=== PATIENT | female | born 1965 | race Caucasian/White ===

== ENCOUNTER → 2016-02-10 | Outpatient (CLI) | payer OTHER ==
[~2016-02-10] MED LIST: /ESOM40CA OR; /TIOT18INH INH; /WARF2TA OR; ALTA10CA OR; ARTISOL10 OU; ASPI81TA83 OR; ASPI81TA85 PO; BACL10TA2 OR; BACL10TA2 PO; CLAR1TAB2 PO; CLON1TAB OR; COMBVENT INFIL; CYCL10TA PO; DEPO-PROVERA IM; DEPRO PROVERA IM; DULO30CA PO; EPIP0.3I IM; FLEXERIL PO; FLON0.05; FLUCTICASONE; FOLI1TAB OR; FURO20TA2 OR; GABA600T3 OR; HYOMAX PO; LOPR50TA OR; LYRI75CA PO; METF-414 PO; METO25TA74 PO; MIRT15TA3 PO; MUCINEX PO; NITR0.4S SL; NYSTATIN TOP; OMEP20TA PO; OXYC10TA12 PO; OXYC5CAP28 PO; PULMICORT NEB; REMIPRIL PO; SIMV40TA2 OR; SOMA350T PO; TIZA4TAB OR; TRAM50TA2 OR; TRAZ50TA OR; TRAZADONE PO; TRIC145T19 OR; VENTAER IN; VITAMIN D50000 UNT OR; ZYRT10TA2 PO; [UNRECOGNIZED DRUG - CODE] SL
--- NOTE | 2016-02-20 02:26 | ECWPNPC ---
PATIENT NAME: MIGUEL PICKETT : 1965 GENDER: FEMALE VISIT DATE: 02/10/2016 DISCHARGE DATE: 02/10/16 1449 VISIT LOCKED DATE TIME: PHYSICIAN: DIANA FLOREZ PHYSICIAN PAGER NO: [phone] RESOURCE: DIANA FLOREZ REASON FOR APPOINTMENT 1. CHRONIC PAIN HISTORY OF PRESENT ILLNESS HISTORY OF PRESENT ILLNESS: PAIN THE PATIENT DESCRIBES THE PAIN... FALL RISK SCREENING: SCREENING :NO FALLS IN THE PAST YEAR TODAY'S VISIT: NOTES: RATES PAIN TODAY 10++. NOTES PAIN AT SHOULDERS WITH PAIN ALSO IN LOW BACK AND DOWN BOTH LEGS. WORSTA AREA OF PAIN IS RIGHT SIDE OF NECK. IS UNABLE TO TURN HEAD. IT GIVES MIGRAINES. RECENTLY HAD EMG/NCS ON LEGS AND WILL BE MAKING FOLLOWUP APPOINTMENT WITH DR STU RAMIRES.. CURRENT MEDICATIONS TAKING LORATADINE ALLERGY RELIEF 10 MG TABLET DISPERSIBLE 1 TABLET ON THE TONGUE AND ALLOW TO DISSOLVE ORALLY ONCE A DAY TAKING CETIRIZINE HCL 10 MG TABLET 1 TABLET NEEDED ORALLY ONCE A DAY TAKING METFORMIN 500 MG 1 TAB ORAL DAILY TAKING FOLIC ACID 1 MG TABLET 1 TABLET ORALLY ONCE A DAY TAKING RAMIPRIL 10 10 MG TABLET 1 CAP(S) P.O. DAILY TAKING COUMADIN 2 MG TABLET 1 TABLET ORALLY 6MG DAILY EXCEPT FOR MONDAY DOSE IS 4 MG TAKING RANITIDINE 75 75 MG TABLET ORALLY BID TAKING VITAMIN D 1000 UNIT CAPSULE 1 CAPSULE ORALLY WEEKLY TAKING PROAIR HFA 108 (90 BASE) MCG/ACT AEROSOL SOLUTION 2 PUFFS NEEDED INHALATION BID TAKING SIMVASTATIN 40 40MG TABLET ORAL DAILY TAKING MUCINEX 600 MG TABLET EXTENDED RELEASE 1 TABLET NEEDED ORALLY EVERY 12 HRS TAKING TRAZODONE 100 100MG TABLET ORAL DAILY AT BEDTIME TAKING METOPROLOL SUCCINATE ER 25 MG TABLET EXTENDED RELEASE 24 HOUR 1 TABLET ORALLY ONCE A DAY TAKING NITROSTAT 0.4 MG TABLET SUBLINGUAL SUBLINGUAL DIRECTED TAKING DEPO-SUBQ PROVERA 104 104 MG/0.65ML SUSPENSION 0.65 ML SUBCUTANEOUS EVERY 3 MOS TAKING VENTOLIN HFA 108 (90 BASE) MCG/ACT AEROSOL SOLUTION 2 PUFFS NEEDED INHALATION EVERY 4 HRS TAKING SPIRIVA HANDIHALER 18 MCG CAPSULE 1 CAPSULE INHALATION ONCE A DAY TAKING CLONAZEPAM 1 MG TABLET 1 TABLET ORALLY TWICE A DAY TAKING MIRTAZAPINE 15 MG TABLET 1 TABLET BEFORE BEDTIME IN THE EVENING ORALLY ONCE A DAY TAKING OMEPRAZOLE 20MG 20MG TABLET 2 TAB(S) ORAL DAILY TAKING EPIPEN 0.3 MG/0.3ML (1:1000) DEVICE INTRAMUSCULAR DAILY NEEDED TAKING HYOSCYAMINE 0.15 MG TABLET 1 TABLET ORALLY THREE TIMES A DAY TAKING FLUTICASONE PROPIONATE HFA 44 MCG/ACT AEROSOL 2 PUFFS INHALATION TWICE A DAY TAKING AZELASTINE-FLUTICASONE 137-50 MCG/ACT SUSPENSION 1 PUFF IN EACH NOSTRIL NASALLY TWICE A DAY TAKING ASPIRIN 81 MG TABLET CHEWABLE 1 TABLET ORALLY ONCE A DAY TAKING SOMA 350 MG TABLET 1 TABLET NEEDED ORALLY Q8 HRS MDD=3 TAKING TIZANIDINE HCL 4 MG TABLET 1 1/2 TAB ORALLY THREE TIMES A DAY TAKING LINZESS 290 MCG CAPSULE 1 CAPSULE ORALLY ONCE A DAY TAKING OXYCODONE HCL 15 MG TABLET 1 TABLET NEEDED ORALLY EVERY 4 - 6 HRS PRN PAIN MDD=4 NOT-TAKING TRAZODONE HCL 100 MG TABLET 1 TABLET AT BEDTIME ORALLY BEFORE BEDTIME NOT-TAKING NUCYNTA ER 100 MG TABLET EXTENDED RELEASE 12 HOUR 1 TABLET ORALLY QID MDD =4 CHRONIC PAIN NOT-TAKING AMITRIPTYLINE HCL 25 MG TABLET 1 TABLET ORALLY TAKE 1 OR 2 AT BEDTIME NOT-TAKING CARISOPRODOL 350 MG TABLET 1 TABLET NEEDED ORALLY BID PRN MEDICATION LIST REVIEWED AND RECONCILED WITH THE PATIENT PAST MEDICAL HISTORY NIDDM,HTN,HIGH CHOLESTEROL,CHRONIC PAIN, MIGRAINES,GERD,HIATAL HERNIA,DIVERTICULITIS ALLERGIES BEES ANTI DEPRESANTS ACETAMINOPHEN ASPERTAME HEART CATH DYE REVIEW OF SYSTEMS CONSTITUTIONAL: ANY CHANGE IN YOUR MEDICAL CONDITION? NO . CHILLS NO . FEVER NO . INFECTION: DO YOU HAVE NEW INFECTIONS? NO . DO YOU HAVE HISTORY OF MRSA? NO . MUSCULOSKELETAL: ANY NEW PATTERNS OF PAIN OR NUMBNESS? NO . GASTROENTEROLOGY: ANY NEW CHANGE IN BOWEL CONTROL? NO . GENITOURINARY: ANY NEW CHANGE IN BLADDER CONTROL? NO . IS THERE A CHANCE YOU COULD BE ? NO . HEMATOLOGY/LYMPH: DO YOU TAKE ANY BLOOD THINNERS? (FOR EXAMPLE- COUMADIN, PLAVIX, AGGRENOX, PLATEL, PRADAXA, OR XARELTO) NO . WHEN WAS YOUR LAST DOSE? DATE: TIME: . NEUROLOGY: HAVE YOU FALLEN IN THE PAST 6 MONTHS? NO . ANY NEW EXTREMITY NUMBNESS OR WEAKNESS? NO . CARDIOLOGY: DO YOU HAVE A PACEMAKER OR DEFIBRILLATOR? NO . RESPIRATORY: HAVE YOU BEEN SICK IN THE PAST WEEK? NO . FEVER NO . FLU LIKE SYMPTOMS? NO . COUGH NO . INTEGUMENTARY: DO YOU HAVE ANY RASHES OR OPEN SORES? NO . ALLERGIC/IMMUNO: ARE YOU ALLERGIC TO SHELLFISH OR IV DYE? YES . ANY NEW ALLERGIES? NO . PSYCHIATRIC: DO YOU HAVE THOUGHTS OF HURTING YOURSELF OR SOMEONE ELSE? NO . ARE YOU ABUSED, NEGLECTED, OR IN AN UNSAFE ENVIRONMENT? NO . ENDOCRINOLOGY: ARE YOU DIABETIC? NO . OTHER: DO YOU NEED ANY PRESCRIPTIONS? NO . IF YES, PLEASE LIST: ____ . ANY NEW PROBLEMS WITH YOUR MEDICATIONS? NO . WHEN DID YOU LAST EAT? ____ . WHEN DID YOU LAST DRINK? ____ . WHAT DID YOU LAST DRINK? ____ . NAME OF PERSON DRIVING YOU HOME? ____ . DO YOU HAVE ANY OTHER QUESTIONS OR CONCERNS NO . REVIEWED BY: PROVIDER: DIANA KIM . VITAL SIGNS WT 218 LBS, HT 71 IN, BMI 30.40 INDEX, HR 72 /MIN, RR 18 /MIN, TEMP 98.2 F, OXYGEN SAT % 97, REVIEWED BY: KG. EXAMINATION GENERAL EXAMINATION: PSYCHALERT , ORIENTED X 3 , APPROPRIATE MOOD AND AFFECT . LUNGS:CLEAR TO AUSCULTATION BILATERALLY. HEART:HEART RATE REGULAR. MUSCULOSKELETAL:PALPATION: POSITIVE FOR PAIN OVER L/S SPINE. POSITIVE FOR PAIN OVER L/S PARSPINALS POINT TENDERNESS OVER BILATERAL SIJ'S. SLOW TO RISE TO STANDING POSITION. GAIT ANTALGIC. POINT TENDERNESS OVER RIGHT AC JOINT. DECREASED ROM WITH EXTENSION/ABDUCTION RIGHT ARM. POINT TENDERNESS OVER RIGHT SUPRASPINATUS AND RIGHT SCAPULA, TRIGGER POINTS:, ELICITED WITH PALPATION OVER CERVICAL SPINOUS PROCESSES AND ACROSS THE TRAPEZIUS MUSCLES BILATERALLY. RESTRICTION OF ROM IS NOTED. . ASSESSMENTS PERIPHERAL NEUROPATHY - G62.9 (PRIMARY) CHRONIC PRESCRIPTION OPIATE USE - Z79.899 LUMBAR POST-LAMINECTOMY SYNDROME - M96.1 ACUTE PAIN OF RIGHT SHOULDER - M25.511 TREATMENT PERIPHERAL NEUROPATHY REFILL OXYCODONE HCL TABLET, 15 MG, 1 TABLET NEEDED, ORALLY, EVERY 4 - 6 HRS PRN PAIN MDD=5, 30 DAY(S), 150, REFILLS 0 NOTES: STOP LINZESS WHILE HAVING DIARRHEA. STOP TIZANIDINE FOR NOW INCREASE MAX DAILY DOSE OF OXYCODONE TO /DAYUTOX TODAY. PROCEDURE CODES FA211 ESTABILISHED PATIENT [facility] CHARGE FOLLOW UP 7 WEEKS ELECTRONICALLY SIGNED BY SAVANA FERNANDEZ ON 02/19/2016 AT 03:08 PM EST DISCLAIMER : THIS IS A VISIT SUMMARY EXTRACTED FROM THE [employer] CHART. IT IS NOT A COPY OF THE [employer] PROGRESS NOTE. JHON
== END ==
LOC: M PAIN 13:40
PROVIDERS: ATTEND Nurse Practitioner Family
DX: Z09 Encounter for follow-up examination after completed treatment for conditions other than malignant neoplasm (principal); G89.29 Other chronic pain; G62.9 Polyneuropathy, unspecified; M96.1 Postlaminectomy syndrome, not elsewhere classified; M25.511 Pain in right shoulder; E11.9 Type 2 diabetes mellitus without complications; I10 Essential (primary) hypertension; E78.00 Pure hypercholesterolemia, unspecified; G43.909 Migraine, unspecified, not intractable, without status migrainosus; K21.9 Gastro-esophageal reflux disease without esophagitis; K44.9 Diaphragmatic hernia without obstruction or gangrene; Z91.030 Bee allergy status; Z88.8 Allergy status to other drugs, medicaments and biological substances; Z91.041 Radiographic dye allergy status; Z79.84 Long term (current) use of oral hypoglycemic drugs; Z79.01 Long term (current) use of anticoagulants; Z79.82 Long term (current) use of aspirin; Z79.891 Long term (current) use of opiate analgesic; Z79.899 Other long term (current) drug therapy

== ENCOUNTER → 2016-04-12 | Outpatient (CLI) | payer OTHER ==
--- NOTE | 2016-04-13 23:35 | ECWPNPC ---
PATIENT NAME: MIGUEL PICKETT : 1965 GENDER: FEMALE VISIT DATE: 04/12/2016 DISCHARGE DATE: 04/12/16 1555 VISIT LOCKED DATE TIME: PHYSICIAN: DIANA FLOREZ PHYSICIAN PAGER NO: [phone] RESOURCE: DIANA FLOREZ REASON FOR APPOINTMENT 1. FIBROMYALGIA HISTORY OF PRESENT ILLNESS HISTORY OF PRESENT ILLNESS: PAIN THE PATIENT DESCRIBES THE PAIN... THE PATIENT DESCRIBES THE PAIN... PAIN THE PATIENT DESCRIBES THE PAIN... THE PATIENT DESCRIBES THE PAIN... FALL RISK SCREENING: SCREENING :NO FALLS IN THE PAST YEAR :NO FALLS IN THE PAST YEAR SCREENING :NO FALLS IN THE PAST YEAR :NO FALLS IN THE PAST YEAR TODAY'S VISIT: NOTES: RATES PAIN TODAY 10+/10. NOTES MORE FALLS. PAIN CENTERED AT NECKRADIATING TO RIGHT ARM, AND ACRSS THE LOW BACK DOWN BOTH LEGS.FELL INTO WOODSTOVE AND BURNT RIGHT HAND. HAD NCS AT [facility] AND IS WAITING FOR FOLLOWUP APPOINTMENT WITH DR RAMIRES AT [facility].. CURRENT MEDICATIONS TAKING LORATADINE ALLERGY RELIEF 10 MG TABLET DISPERSIBLE 1 TABLET ON THE TONGUE AND ALLOW TO DISSOLVE ORALLY ONCE A DAY TAKING CETIRIZINE HCL 10 MG TABLET 1 TABLET NEEDED ORALLY ONCE A DAY TAKING METFORMIN 500 MG 1 TAB ORAL DAILY TAKING FOLIC ACID 1 MG TABLET 1 TABLET ORALLY ONCE A DAY TAKING COUMADIN 2 MG TABLET 1 TABLET ORALLY 6MG DAILY EXCEPT FOR MONDAY DOSE IS 4 MG TAKING RANITIDINE 75 75 MG TABLET ORALLY BID TAKING VITAMIN D 1000 UNIT CAPSULE 1 CAPSULE ORALLY WEEKLY TAKING RAMIPRIL 10 10 MG TABLET 1 CAP(S) P.O. DAILY TAKING PROAIR HFA 108 (90 BASE) MCG/ACT AEROSOL SOLUTION 2 PUFFS NEEDED INHALATION BID TAKING SIMVASTATIN 40 40MG TABLET 2 TABS ORAL DAILY TAKING MUCINEX 600 MG TABLET EXTENDED RELEASE 1 TABLET NEEDED ORALLY EVERY 12 HRS TAKING TRAZODONE 100 100MG TABLET ORAL DAILY AT BEDTIME TAKING NITROSTAT 0.4 MG TABLET SUBLINGUAL SUBLINGUAL DIRECTED TAKING DEPO-SUBQ PROVERA 104 104 MG/0.65ML SUSPENSION 0.65 ML SUBCUTANEOUS EVERY 3 MOS TAKING VENTOLIN HFA 108 (90 BASE) MCG/ACT AEROSOL SOLUTION 2 PUFFS NEEDED INHALATION EVERY 4 HRS TAKING SPIRIVA HANDIHALER 18 MCG CAPSULE 1 CAPSULE INHALATION ONCE A DAY TAKING CLONAZEPAM 1 MG TABLET 1 TABLET ORALLY TWICE A DAY TAKING MIRTAZAPINE 15 MG TABLET 1 TABLET BEFORE BEDTIME IN THE EVENING ORALLY ONCE A DAY TAKING OMEPRAZOLE 20MG 20MG TABLET 2 TAB(S) ORAL DAILY TAKING EPIPEN 0.3 MG/0.3ML (1:1000) DEVICE INTRAMUSCULAR DAILY NEEDED TAKING FLUTICASONE PROPIONATE HFA 44 MCG/ACT AEROSOL 2 PUFFS INHALATION TWICE A DAY TAKING AZELASTINE-FLUTICASONE 137-50 MCG/ACT SUSPENSION 1 PUFF IN EACH NOSTRIL NASALLY TWICE A DAY TAKING ASPIRIN 81 MG TABLET CHEWABLE 1 TABLET ORALLY ONCE A DAY TAKING SOMA 350 MG TABLET 1 TABLET NEEDED ORALLY Q8 HRS MDD=3 TAKING LINZESS 290 MCG CAPSULE 1 CAPSULE ORALLY ONCE A DAY TAKING OXYCODONE HCL 15 MG TABLET 1 TABLET NEEDED ORALLY EVERY 4 - 6 HRS PRN PAIN MDD=5 NOT-TAKING TIZANIDINE HCL 4 MG TABLET 1 1/2 TAB ORALLY THREE TIMES A DAY NOT-TAKING METOPROLOL SUCCINATE ER 25 MG TABLET EXTENDED RELEASE 24 HOUR 1 TABLET ORALLY ONCE A DAY NOT-TAKING TRAZODONE HCL 100 MG TABLET 1 TABLET AT BEDTIME ORALLY BEFORE BEDTIME NOT-TAKING NUCYNTA ER 100 MG TABLET EXTENDED RELEASE 12 HOUR 1 TABLET ORALLY QID MDD =4 CHRONIC PAIN NOT-TAKING AMITRIPTYLINE HCL 25 MG TABLET 1 TABLET ORALLY TAKE 1 OR 2 AT BEDTIME NOT-TAKING CARISOPRODOL 350 MG TABLET 1 TABLET NEEDED ORALLY BID PRN UNKNOWN HYOSCYAMINE 0.15 MG TABLET 1 TABLET ORALLY THREE TIMES A DAY MEDICATION LIST REVIEWED AND RECONCILED WITH THE PATIENT PAST MEDICAL HISTORY NIDDM,HTN,HIGH CHOLESTEROL,CHRONIC PAIN, MIGRAINES,GERD,HIATAL HERNIA,DIVERTICULITIS ALLERGIES BEES ANTI DEPRESANTS ACETAMINOPHEN ASPERTAME HEART CATH DYE SOCIAL HISTORY GENERAL: TOBACCO USE ARE YOU A:CURRENT SMOKER ARE YOU A:CURRENT SMOKER LEARNING BARRIERS / SPECIAL NEEDS ORIENTED TO PLAN OF CARE: PATIENT, PAIN MANAGEMENT PATIENT, ORIENTED TO PLAN OF CARE: PATIENT, PAIN MANAGEMENT PATIENT, ORIENTED TO PLAN OF CARE: PATIENT, PAIN MANAGEMENT PATIENT, ORIENTED TO PLAN OF CARE: PATIENT, PAIN MANAGEMENT PATIENT. NEW PATIENT PAIN DIARY TODAY'S VISITNOTES FROM 0-10, WHAT LEVEL IS YOUR PAIN TODAY?0 TODAY'S VISITNOTES FROM 0-10, WHAT LEVEL IS YOUR PAIN TODAY?0 PAIN CLINIC PFS, CLERGY, PUBLIC HEALTH REFERRALS PFS REFERRAL NEEDED?NO CLERGY REFERRAL NEEDED?NO PUBLIC HEALTH REFERRAL NEEDED?NO WAS THE PROVIDER NOTIFIED OF ANY PERTINENT INFO?NO PFS REFERRAL NEEDED?NO CLERGY REFERRAL NEEDED?NO PUBLIC HEALTH REFERRAL NEEDED?NO WAS THE PROVIDER NOTIFIED OF ANY PERTINENT INFO?NO PFS REFERRAL NEEDED?NO CLERGY REFERRAL NEEDED?NO PUBLIC HEALTH REFERRAL NEEDED?NO WAS THE PROVIDER NOTIFIED OF ANY PERTINENT INFO?NO PFS REFERRAL NEEDED?NO CLERGY REFERRAL NEEDED?NO PUBLIC HEALTH REFERRAL NEEDED?NO WAS THE PROVIDER NOTIFIED OF ANY PERTINENT INFO?NO REVIEW OF SYSTEMS CONSTITUTIONAL: ANY CHANGE IN YOUR MEDICAL CONDITION? NO, NO . CHILLS NO, NO . FEVER NO, NO . INFECTION: DO YOU HAVE NEW INFECTIONS? NO, NO . DO YOU HAVE HISTORY OF MRSA? NO, NO . MUSCULOSKELETAL: ANY NEW PATTERNS OF PAIN OR NUMBNESS? , YES INCREASED NUMBNESS , BURNING IN FEET AND FALLING MORE FREQUENTLY . GASTROENTEROLOGY: ANY NEW CHANGE IN BOWEL CONTROL? NO, NO . GENITOURINARY: ANY NEW CHANGE IN BLADDER CONTROL? NO, NO . IS THERE A CHANCE YOU COULD BE ? NO, NO . HEMATOLOGY/LYMPH: DO YOU TAKE ANY BLOOD THINNERS? (FOR EXAMPLE- COUMADIN, PLAVIX, AGGRENOX, PLATEL, PRADAXA, OR XARELTO) YES . WHEN WAS YOUR LAST DOSE? DATE: TIME: , DATE: TIME: . NEUROLOGY: HAVE YOU FALLEN IN THE PAST 6 MONTHS? NO, NO . ANY NEW EXTREMITY NUMBNESS OR WEAKNESS? NO, NO . CARDIOLOGY: DO YOU HAVE A PACEMAKER OR DEFIBRILLATOR? NO, NO . RESPIRATORY: HAVE YOU BEEN SICK IN THE PAST WEEK? NO, NO . FEVER NO, NO . FLU LIKE SYMPTOMS? NO, NO . COUGH NO, NO . INTEGUMENTARY: DO YOU HAVE ANY RASHES OR OPEN SORES? NO, NO . ALLERGIC/IMMUNO: ARE YOU ALLERGIC TO SHELLFISH OR IV DYE? NO, NO . ANY NEW ALLERGIES? NO, NO . PSYCHIATRIC: DO YOU HAVE THOUGHTS OF HURTING YOURSELF OR SOMEONE ELSE? NO, NO . ARE YOU ABUSED, NEGLECTED, OR IN AN UNSAFE ENVIRONMENT? NO, NO . ENDOCRINOLOGY: ARE YOU DIABETIC? , YES . OTHER: DO YOU NEED ANY PRESCRIPTIONS? NO, NO . IF YES, PLEASE LIST: ____, ____ . ANY NEW PROBLEMS WITH YOUR MEDICATIONS? NO, NO . WHEN DID YOU LAST EAT? ____, ____ . WHEN DID YOU LAST DRINK? ____, ____ . WHAT DID YOU LAST DRINK? ____, ____ . NAME OF PERSON DRIVING YOU HOME? ____, ____ . DO YOU HAVE ANY OTHER QUESTIONS OR CONCERNS NO, NO . REVIEWED BY: PROVIDER: DIANA KIM . VITAL SIGNS WT 218.4 LBS, HT 71 IN, BMI 30.46 INDEX, BP 122/65 MM HG, HR 81 /MIN, RR 16 /MIN, TEMP 98.5 F, OXYGEN SAT % 94%, NA INITIALS SC 15:14, REVIEWED BY: KG. EXAMINATION GENERAL EXAMINATION: PSYCHALERT , ORIENTED X 3 , APPROPRIATE MOOD AND AFFECT . LUNGS:CLEAR TO AUSCULTATION BILATERALLY. HEART:HEART RATE REGULAR. MUSCULOSKELETAL:PALPATION: POSITIVE FOR PAIN OVER L/S SPINE. POSITIVE FOR PAIN OVER L/S PARSPINALS POINT TENDERNESS OVER BILATERAL SIJ'S. SLOW TO RISE TO STANDING POSITION. GAIT ANTALGIC. POINT TENDERNESS OVER RIGHT SUPRASPINATUS AND RIGHT SCAPULA, TRIGGER POINTS: AND TIGHT FIBROUS BANDS, ELICITED WITH PALPATION OVER CERVICAL SPINOUS PROCESSES AND ACROSS THE TRAPEZIUS MUSCLES BILATERALLY. RESTRICTION OF ROM IS NOTED. . ASSESSMENTS PERIPHERAL NEUROPATHY - G62.9 (PRIMARY) CHRONIC PRESCRIPTION OPIATE USE - Z79.899 LUMBAR POST-LAMINECTOMY SYNDROME - M96.1 ACUTE PAIN OF RIGHT SHOULDER - M25.511 TREATMENT PERIPHERAL NEUROPATHY CLINICAL NOTES: ISTOP REGISTRY REVIEWED AND DEMNOSTRATES COMPLLIANCE. BRINGS IN MEDICATIONS WHICH IS APPROPRIATE FOR WHAT WAS DISPENSED. RECENT URINE TOXICOLOGY REVIEWED. NO UNAUTHORIZED MEDICATIONS. NO ILLICIT SUBSTANCES AND PRESCRIBED MEDICATIONS WERE PRESENT. CHRONIC PRESCRIPTION OPIATE USE START CYMBALTA CAPSULE DELAYED RELEASE PARTICLES, 30 MG, 1 CAPSULE, ORALLY, DAILY, 30 DAY(S), 30 CAPSULE, REFILLS 2 NOTES: CALL WHEN MEDS DUE. PROCEDURE CODES FA211 ESTABILISHED PATIENT LOCATED WITHIN [facility] CHARGE DISPOSITION & COMMUNICATION FOLLOW UP 6 WEEKS ELECTRONICALLY SIGNED BY SAVANA FERNANDEZ ON 04/12/2016 AT 06:20 PM EST DISCLAIMER : THIS IS A VISIT SUMMARY EXTRACTED FROM THE [employer] CHART. IT IS NOT A COPY OF THE [employer] PROGRESS NOTE. MTDD
== END ==
LOC: M PAIN 15:20
PROVIDERS: ATTEND Nurse Practitioner Family
DX: Z09 Encounter for follow-up examination after completed treatment for conditions other than malignant neoplasm (principal); G62.9 Polyneuropathy, unspecified; M96.1 Postlaminectomy syndrome, not elsewhere classified; M25.511 Pain in right shoulder; E11.9 Type 2 diabetes mellitus without complications; E78.00 Pure hypercholesterolemia, unspecified; G43.909 Migraine, unspecified, not intractable, without status migrainosus; K21.9 Gastro-esophageal reflux disease without esophagitis; K44.9 Diaphragmatic hernia without obstruction or gangrene; F17.210 Nicotine dependence, cigarettes, uncomplicated; Z79.82 Long term (current) use of aspirin; Z79.84 Long term (current) use of oral hypoglycemic drugs; Z79.01 Long term (current) use of anticoagulants; Z79.891 Long term (current) use of opiate analgesic; Z79.899 Other long term (current) drug therapy; Z88.8 Allergy status to other drugs, medicaments and biological substances; Z91.048 Other nonmedicinal substance allergy status; Z88.6 Allergy status to analgesic agent; Z91.030 Bee allergy status

== ENCOUNTER → 2016-05-24 | Outpatient (CLI) | payer OTHER ==
--- NOTE | 2016-06-07 02:00 | ECWPNPC ---
PATIENT NAME: MIGUEL PICKETT : 1965 GENDER: FEMALE VISIT DATE: 05/24/2016 DISCHARGE DATE: 05/24/16 1614 VISIT LOCKED DATE TIME: PHYSICIAN: DIANA FLOREZ PHYSICIAN PAGER NO: [phone] RESOURCE: DIANA FLOREZ REASON FOR APPOINTMENT 1. FIBROMYALGIA HISTORY OF PRESENT ILLNESS HISTORY OF PRESENT ILLNESS: PAIN THE PATIENT DESCRIBES THE PAIN... FALL RISK SCREENING: SCREENING :NO FALLS IN THE PAST YEAR TODAY'S VISIT: NOTES: RATES PAIN TODAY 10/10. NOTES MINIMAL IMPROVEMENT WITH ADDITION OF CYMBALTA, BUT ALSO NOTES THAT THE WORST OF THE PAIN IS IN HER MAMIE AND FEET. DESCRIBES THE GENERAL PAIN ACHING AND SORE AND THE MORE INTENSE PAIN IS SHARP AND STABBING. STATES PAIN MEDS ARE HELPING AND KEEP THINGS MANAGABLE. REPORTS SHE IS HAVING NO ADVERSE REACTIONS TO HER MEDS.. CURRENT MEDICATIONS TAKING LORATADINE ALLERGY RELIEF 10 MG TABLET DISPERSIBLE 1 TABLET ON THE TONGUE AND ALLOW TO DISSOLVE ORALLY ONCE A DAY TAKING CETIRIZINE HCL 10 MG TABLET 1 TABLET NEEDED ORALLY ONCE A DAY TAKING METFORMIN 500 MG 1 TAB ORAL DAILY TAKING FOLIC ACID 1 MG TABLET 1 TABLET ORALLY ONCE A DAY TAKING COUMADIN 2 MG TABLET 1 TABLET ORALLY 6MG DAILY EXCEPT FOR MONDAY DOSE IS 4 MG TAKING RANITIDINE 75 75 MG TABLET ORALLY BID TAKING VITAMIN D 1000 UNIT CAPSULE 1 CAPSULE ORALLY WEEKLY TAKING RAMIPRIL 10 10 MG TABLET 1 CAP(S) P.O. DAILY TAKING PROAIR HFA 108 (90 BASE) MCG/ACT AEROSOL SOLUTION 2 PUFFS NEEDED INHALATION BID TAKING SIMVASTATIN 40 40MG TABLET 2 TABS ORAL DAILY TAKING MUCINEX 600 MG TABLET EXTENDED RELEASE 1 TABLET NEEDED ORALLY EVERY 12 HRS TAKING TRAZODONE 100 100MG TABLET ORAL DAILY AT BEDTIME TAKING NITROSTAT 0.4 MG TABLET SUBLINGUAL SUBLINGUAL DIRECTED TAKING DEPO-SUBQ PROVERA 104 104 MG/0.65ML SUSPENSION 0.65 ML SUBCUTANEOUS EVERY 3 MOS TAKING VENTOLIN HFA 108 (90 BASE) MCG/ACT AEROSOL SOLUTION 2 PUFFS NEEDED INHALATION EVERY 4 HRS TAKING SPIRIVA HANDIHALER 18 MCG CAPSULE 1 CAPSULE INHALATION ONCE A DAY TAKING CLONAZEPAM 1 MG TABLET 1 TABLET ORALLY TWICE A DAY TAKING MIRTAZAPINE 15 MG TABLET 1 TABLET BEFORE BEDTIME IN THE EVENING ORALLY ONCE A DAY TAKING OMEPRAZOLE 20MG 20MG TABLET 2 TAB(S) ORAL DAILY TAKING EPIPEN 0.3 MG/0.3ML (1:1000) DEVICE INTRAMUSCULAR DAILY NEEDED TAKING FLUTICASONE PROPIONATE HFA 44 MCG/ACT AEROSOL 2 PUFFS INHALATION TWICE A DAY TAKING AZELASTINE-FLUTICASONE 137-50 MCG/ACT SUSPENSION 1 PUFF IN EACH NOSTRIL NASALLY TWICE A DAY TAKING ASPIRIN 81 MG TABLET CHEWABLE 1 TABLET ORALLY ONCE A DAY TAKING LINZESS 290 MCG CAPSULE 1 CAPSULE ORALLY ONCE A DAY TAKING CYMBALTA 30 MG CAPSULE DELAYED RELEASE PARTICLES 1 CAPSULE ORALLY DAILY TAKING OXYCODONE HCL 15 MG TABLET 1 TABLET NEEDED ORALLY EVERY 4 - 6 HRS PRN PAIN MDD=5 TAKING SOMA 350 MG TABLET 1 TABLET NEEDED ORALLY Q8 HRS MDD=3 NOT-TAKING TIZANIDINE HCL 4 MG TABLET 1 1/2 TAB ORALLY THREE TIMES A DAY NOT-TAKING METOPROLOL SUCCINATE ER 25 MG TABLET EXTENDED RELEASE 24 HOUR 1 TABLET ORALLY ONCE A DAY NOT-TAKING TRAZODONE HCL 100 MG TABLET 1 TABLET AT BEDTIME ORALLY BEFORE BEDTIME NOT-TAKING NUCYNTA ER 100 MG TABLET EXTENDED RELEASE 12 HOUR 1 TABLET ORALLY QID MDD =4 CHRONIC PAIN NOT-TAKING AMITRIPTYLINE HCL 25 MG TABLET 1 TABLET ORALLY TAKE 1 OR 2 AT BEDTIME NOT-TAKING CARISOPRODOL 350 MG TABLET 1 TABLET NEEDED ORALLY BID PRN UNKNOWN HYOSCYAMINE 0.15 MG TABLET 1 TABLET ORALLY THREE TIMES A DAY MEDICATION LIST REVIEWED AND RECONCILED WITH THE PATIENT PAST MEDICAL HISTORY NIDDM,HTN,HIGH CHOLESTEROL,CHRONIC PAIN, MIGRAINES,GERD,HIATAL HERNIA,DIVERTICULITIS ALLERGIES BEES ANTI DEPRESANTS ACETAMINOPHEN ASPERTAME HEART CATH DYE FENTANYL : TASTE CHANGES: SIDE EFFECTS SOCIAL HISTORY GENERAL: PAIN CLINIC PFS, CLERGY, PUBLIC HEALTH REFERRALS CLERGY REFERRAL NEEDED?NO WAS THE PROVIDER NOTIFIED OF ANY PERTINENT INFO?NO PFS REFERRAL NEEDED?NO PUBLIC HEALTH REFERRAL NEEDED?NO PATIENT: ____. REVIEW OF SYSTEMS CONSTITUTIONAL: ANY CHANGE IN YOUR MEDICAL CONDITION? NO . CHILLS NO . FEVER NO . INFECTION: DO YOU HAVE NEW INFECTIONS? NO . DO YOU HAVE HISTORY OF MRSA? NO . MUSCULOSKELETAL: ANY NEW PATTERNS OF PAIN OR NUMBNESS? NO . GASTROENTEROLOGY: ANY NEW CHANGE IN BOWEL CONTROL? NO . GENITOURINARY: ANY NEW CHANGE IN BLADDER CONTROL? NO . IS THERE A CHANCE YOU COULD BE ? NO . HEMATOLOGY/LYMPH: DO YOU TAKE ANY BLOOD THINNERS? (FOR EXAMPLE- COUMADIN, PLAVIX, AGGRENOX, PLATEL, PRADAXA, OR XARELTO) NO . WHEN WAS YOUR LAST DOSE? DATE: TIME: . NEUROLOGY: HAVE YOU FALLEN IN THE PAST 6 MONTHS? NO . ANY NEW EXTREMITY NUMBNESS OR WEAKNESS? NO . CARDIOLOGY: DO YOU HAVE A PACEMAKER OR DEFIBRILLATOR? NO . RESPIRATORY: HAVE YOU BEEN SICK IN THE PAST WEEK? NO . FEVER NO . FLU LIKE SYMPTOMS? NO . COUGH NO . INTEGUMENTARY: DO YOU HAVE ANY RASHES OR OPEN SORES? NO . ALLERGIC/IMMUNO: ARE YOU ALLERGIC TO SHELLFISH OR IV DYE? NO . ANY NEW ALLERGIES? NO . PSYCHIATRIC: DO YOU HAVE THOUGHTS OF HURTING YOURSELF OR SOMEONE ELSE? NO . ARE YOU ABUSED, NEGLECTED, OR IN AN UNSAFE ENVIRONMENT? NO . ENDOCRINOLOGY: ARE YOU DIABETIC? NO . OTHER: DO YOU NEED ANY PRESCRIPTIONS? NO . IF YES, PLEASE LIST: ____ . ANY NEW PROBLEMS WITH YOUR MEDICATIONS? NO . WHEN DID YOU LAST EAT? ____ . WHEN DID YOU LAST DRINK? ____ . WHAT DID YOU LAST DRINK? ____ . NAME OF PERSON DRIVING YOU HOME? ____ . DO YOU HAVE ANY OTHER QUESTIONS OR CONCERNS NO . REVIEWED BY: PROVIDER: DIANA KIM . VITAL SIGNS WT 218 LBS, HT 71 IN, BMI 30.40 INDEX, BP 142/79 MM HG, HR 91 /MIN, RR 16 /MIN, TEMP 99.6 F, OXYGEN SAT % 94%, NA INITIALS AW 1541. EXAMINATION GENERAL EXAMINATION: PSYCHALERT , ORIENTED X 3 , APPROPRIATE MOOD AND AFFECT , SOMEWHAT IRRITABLE BUT LAUGHING. LUNGS:CLEAR TO AUSCULTATION BILATERALLY. HEART:HEART RATE REGULAR. MUSCULOSKELETAL:TRIGGER POINTS AND TIGHT FIBROUS BANDS IDENTIFIED OVER TRAPEZIUS MUSCLES AND ACROSS THE LUMBOSACRAL MUSCLES. SLOW TO RISE TO A STANDING POSITION. POSTURE UPRIGHT, GAIT WIDEBASED, SLOW, ANTALGIC.. EXTREMITIES:DP 3+ LEFT, 1 + RIGHT. NO SENSATION 1 ST, 2 ND TOES BOTH FEET. 1+ EDEMA LEFT FOOT. CHANES NOTED TO LEFT GREAT TOENAIL. MULTIPLE BROWN SPOTS NOTES OVER THE BALL OF BOTH FEET. . 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 CONTINUE CURRENT MEDS.CALL WHEN SCRIPTS DUE. PROCEDURE CODES FA211 ESTABILISHED PATIENT [facility] CHARGE DISPOSITION & COMMUNICATION FOLLOW UP 6 WEEKS (REASON: CHRONIC PAIN) ELECTRONICALLY SIGNED BY SAVANA FERNANDEZ ON 06/06/2016 AT 09:10 AM EDT DISCLAIMER : THIS IS A VISIT SUMMARY EXTRACTED FROM THE [employer] CHART. IT IS NOT A COPY OF THE [employer] PROGRESS NOTE. JHON
== END | disposition home or self-care (01) ==
LOC: M PAIN 15:00
PROVIDERS: ATTEND Nurse Practitioner Family
DX: G89.29 Other chronic pain (principal); G62.9 Polyneuropathy, unspecified; M96.1 Postlaminectomy syndrome, not elsewhere classified; M25.511 Pain in right shoulder; I10 Essential (primary) hypertension; E11.9 Type 2 diabetes mellitus without complications; E78.00 Pure hypercholesterolemia, unspecified; K21.9 Gastro-esophageal reflux disease without esophagitis; K44.9 Diaphragmatic hernia without obstruction or gangrene; G43.909 Migraine, unspecified, not intractable, without status migrainosus; Z87.19 Personal history of other diseases of the digestive system; Z91.030 Bee allergy status; Z88.8 Allergy status to other drugs, medicaments and biological substances; Z79.899 Other long term (current) drug therapy; Z79.84 Long term (current) use of oral hypoglycemic drugs; Z79.82 Long term (current) use of aspirin; Z79.51 Long term (current) use of inhaled steroids

== ENCOUNTER → 2016-06-27 | Outpatient (CLI) | payer OTHER ==
[~2016-06-27] VITALS: Ht 180.3 cm; Wt 97.5 kg
[~2016-06-27] MED LIST changes: +ALBU17IN INH; +ALTA10CA3 PO; +CLON1TAB PO; +COUM1TAB14 PO; +COUM6TAB PO; +EPIP0.3I2 IM; +FLON1SPR; +FOLI1TAB2 PO; +LINZ290C PO; +MUCI600T34 PO; +NITR4TASL SL; +NS 1,000 ML IV ONE; +OMEP40CA2 PO; +OXYC15TA76 PO; +PROPOFOL 200 MG/20 ML VIAL As Ordered ONE; +SIMV40TA2 PO; +TIOT18INH INH; +TRAZ100T4 PO
--- NOTE | 2016-06-27 14:12 | ROOR ---
Patient Name: Laverne Dhillon Procedure Date: 06/27/2016 1:53 PM Date of : 1965 Age: 51 Room: [facility] Gender: Female Note Status: Finalized Procedure: Colonoscopy Indications: Change in bowel habits, Constipation Providers: Darrell FERRARA MD Referring MD: 1. No Referring Physician 1. No Referring Physician, Admin. Requesting Provider: Medicines: Monitored Anesthesia Care Complications: No immediate complications. Procedure: Pre-Anesthesia Assessment: - The heart rate, respiratory rate, oxygen saturations, blood pressure, adequacy of pulmonary ventilation, and response to care were monitored throughout the procedure. The Colonoscope was introduced through the anus and advanced to the terminal ileum, with identification of the appendiceal orifice and IC valve. The colonoscopy was performed without difficulty. The patient tolerated the procedure well. The quality of the bowel preparation was good. Findings: The perianal and digital rectal examinations were normal. Internal hemorrhoids were found during retroflexion. The hemorrhoids were moderate. The entire examined colon appeared normal on direct and retroflexion views. The terminal ileum appeared normal. Impression: - Internal hemorrhoids. - The entire colon is normal on direct and retroflexion views. - The examined portion of the ileum was normal. - No specimens collected. Recommendation: - Continue present medications. Darrell Ferrara MD Darrell FERRARA MD 06/27/2016 2:12:10 PM This report has been signed electronically. Number of Addenda: 0 Note Initiated On: 06/27/2016 1:53 PM Estimated Blood Loss: Estimated blood loss: none.
[2016-06-27 14:30] VITALS: BP 148/71
== END | disposition home or self-care (01) ==
LOC: M OPP 12:02
PROVIDERS: ATTEND Internal Medicine Gastroenterology
DX: R19.4 Change in bowel habit (principal); K59.00 Constipation, unspecified; K64.8 Other hemorrhoids; R07.89 Other chest pain; I25.10 Atherosclerotic heart disease of native coronary artery without angina pectoris; I10 Essential (primary) hypertension; E78.5 Hyperlipidemia, unspecified; R60.0 Localized edema; E11.9 Type 2 diabetes mellitus without complications; R23.3 Spontaneous ecchymoses; M19.90 Unspecified osteoarthritis, unspecified site; M79.7 Fibromyalgia; M25.60 Stiffness of unspecified joint, not elsewhere classified; F41.9 Anxiety disorder, unspecified; J45.909 Unspecified asthma, uncomplicated; J44.9 Chronic obstructive pulmonary disease, unspecified; Z86.711 Personal history of pulmonary embolism; G47.30 Sleep apnea, unspecified; R06.02 Shortness of breath; G47.8 Other sleep disorders; Z98.1 Arthrodesis status; F17.290 Nicotine dependence, other tobacco product, uncomplicated; Z88.8 Allergy status to other drugs, medicaments and biological substances; Z91.041 Radiographic dye allergy status; Z79.82 Long term (current) use of aspirin; Z79.01 Long term (current) use of anticoagulants; Z79.84 Long term (current) use of oral hypoglycemic drugs; Z79.899 Other long term (current) drug therapy; Z91.02 Food additives allergy status; Z91.030 Bee allergy status

== ENCOUNTER → 2016-07-05 | Outpatient (CLI) | payer OTHER ==
[~2016-07-05] MED LIST changes: -NS 1,000 ML IV ONE; -PROPOFOL 200 MG/20 ML VIAL As Ordered ONE
--- NOTE | 2016-07-25 00:05 | ECWPNPC ---
PATIENT NAME: MIGUEL PICKETT : 1965 GENDER: FEMALE VISIT DATE: 07/05/2016 DISCHARGE DATE: 07/05/16 1213 VISIT LOCKED DATE TIME: PHYSICIAN: DIANA FLOREZ PHYSICIAN PAGER NO: [phone] RESOURCE: DIANA FLOREZ REASON FOR APPOINTMENT 1. F/U CHRONIC PAIN HISTORY OF PRESENT ILLNESS HISTORY OF PRESENT ILLNESS: PAIN THE PATIENT DESCRIBES THE PAIN... FALL RISK SCREENING: SCREENING :NO FALLS IN THE PAST YEAR TODAY'S VISIT: NOTES: RATES PAIN LEVEL TODAY 2/10. DESCRIBES PAIN CONSTANT, ACHING, BURNING, SHARP AND STABBING TENDER, THROBBING AND SORE. NOTES PAIN A CENTERED AT NECK WITH RADIATION ACROSS THE SHOULDERS TO UPPER ARMS, AND AT LOW BACK WITH RADIATION TO THE LEGS.. CURRENT MEDICATIONS TAKING LORATADINE ALLERGY RELIEF 10 MG TABLET DISPERSIBLE 1 TABLET ON THE TONGUE AND ALLOW TO DISSOLVE ORALLY ONCE A DAY TAKING CETIRIZINE HCL 10 MG TABLET 1 TABLET NEEDED ORALLY ONCE A DAY TAKING METFORMIN 500 MG 1 TAB ORAL DAILY TAKING FOLIC ACID 1 MG TABLET 1 TABLET ORALLY ONCE A DAY TAKING COUMADIN 2 MG TABLET 1 TABLET ORALLY 6MG DAILY EXCEPT FOR MONDAY DOSE IS 4 MG TAKING RANITIDINE 75 75 MG TABLET ORALLY BID TAKING VITAMIN D 1000 UNIT CAPSULE 1 CAPSULE ORALLY WEEKLY TAKING RAMIPRIL 10 10 MG TABLET 1 CAP(S) P.O. DAILY TAKING PROAIR HFA 108 (90 BASE) MCG/ACT AEROSOL SOLUTION 2 PUFFS NEEDED INHALATION BID TAKING SIMVASTATIN 40 40MG TABLET 2 TABS ORAL DAILY TAKING MUCINEX 600 MG TABLET EXTENDED RELEASE 1 TABLET NEEDED ORALLY EVERY 12 HRS TAKING TRAZODONE 100 100MG TABLET ORAL DAILY AT BEDTIME TAKING NITROSTAT 0.4 MG TABLET SUBLINGUAL SUBLINGUAL DIRECTED TAKING DEPO-SUBQ PROVERA 104 104 MG/0.65ML SUSPENSION 0.65 ML SUBCUTANEOUS EVERY 3 MOS TAKING VENTOLIN HFA 108 (90 BASE) MCG/ACT AEROSOL SOLUTION 2 PUFFS NEEDED INHALATION EVERY 4 HRS TAKING SPIRIVA HANDIHALER 18 MCG CAPSULE 1 CAPSULE INHALATION ONCE A DAY TAKING CLONAZEPAM 1 MG TABLET 1 TABLET ORALLY TWICE A DAY TAKING MIRTAZAPINE 15 MG TABLET 1 TABLET BEFORE BEDTIME IN THE EVENING ORALLY ONCE A DAY TAKING OMEPRAZOLE 20MG 20MG TABLET 2 TAB(S) ORAL DAILY TAKING EPIPEN 0.3 MG/0.3ML (1:1000) DEVICE INTRAMUSCULAR DAILY NEEDED TAKING FLUTICASONE PROPIONATE HFA 44 MCG/ACT AEROSOL 2 PUFFS INHALATION TWICE A DAY TAKING AZELASTINE-FLUTICASONE 137-50 MCG/ACT SUSPENSION 1 PUFF IN EACH NOSTRIL NASALLY TWICE A DAY TAKING ASPIRIN 81 MG TABLET CHEWABLE 1 TABLET ORALLY ONCE A DAY TAKING LINZESS 290 MCG CAPSULE 1 CAPSULE ORALLY ONCE A DAY TAKING CYMBALTA 30 MG CAPSULE DELAYED RELEASE PARTICLES 1 CAPSULE ORALLY DAILY TAKING SOMA 350 MG TABLET 1 TABLET NEEDED ORALLY Q8 HRS MDD=3 TAKING OXYCODONE HCL 15 MG TABLET 1 TABLET NEEDED ORALLY EVERY 4 - 6 HRS PRN PAIN MDD=5 NOT-TAKING TIZANIDINE HCL 4 MG TABLET 1 1/2 TAB ORALLY THREE TIMES A DAY NOT-TAKING METOPROLOL SUCCINATE ER 25 MG TABLET EXTENDED RELEASE 24 HOUR 1 TABLET ORALLY ONCE A DAY NOT-TAKING TRAZODONE HCL 100 MG TABLET 1 TABLET AT BEDTIME ORALLY BEFORE BEDTIME NOT-TAKING NUCYNTA ER 100 MG TABLET EXTENDED RELEASE 12 HOUR 1 TABLET ORALLY QID MDD =4 CHRONIC PAIN NOT-TAKING AMITRIPTYLINE HCL 25 MG TABLET 1 TABLET ORALLY TAKE 1 OR 2 AT BEDTIME NOT-TAKING CARISOPRODOL 350 MG TABLET 1 TABLET NEEDED ORALLY BID PRN UNKNOWN HYOSCYAMINE 0.15 MG TABLET 1 TABLET ORALLY THREE TIMES A DAY MEDICATION LIST REVIEWED AND RECONCILED WITH THE PATIENT PAST MEDICAL HISTORY NIDDM,HTN,HIGH CHOLESTEROL,CHRONIC PAIN, MIGRAINES,GERD,HIATAL HERNIA,DIVERTICULITIS ALLERGIES BEES: ANAPHYLAXIS: ALLERGY ANTI DEPRESANTS: MOOD ALTERATION--MEAN, ANGRY: SIDE EFFECTS ACETAMINOPHEN: N/V: SIDE EFFECTS ASPERTAME: N/V: SIDE EFFECTS HEART CATH DYE: ANAPHYLAXIS: ALLERGY FENTANYL : TASTE CHANGES: SIDE EFFECTS SOCIAL HISTORY GENERAL: TOBACCO USE ARE YOU A:CURRENT SMOKER HOW MANY CIGARETTES A DAY DO YOU SMOKE?5 OR LESS CIGARS HOW SOON AFTER YOU WAKE UP DO YOU SMOKE YOUR FIRST CIGARETTE?6-30 MIN HOW OFTEN DO YOU SMOKE CIGARETTES?EVERY DAY PATIENT COUNSELED ON THE DANGERS OF TOBACCO USE AND URGED TO QUIT:07/05/2016 ARE YOU INTERESTED IN QUITTING?THINKING ABOUT QUITTING HAS EVERYTHING AT HOME TO QUIT BUT DOESN'T HAVE THE WILL POWER YET COUNSELED THE PATIENT ON SMOKING CESSATION, EDUCATION [id number]/2017 PAIN CLINIC PFS, CLERGY, PUBLIC HEALTH REFERRALS CLERGY REFERRAL NEEDED?NO WAS THE PROVIDER NOTIFIED OF ANY PERTINENT INFO?NO PFS REFERRAL NEEDED?NO PUBLIC HEALTH REFERRAL NEEDED?NO PATIENT: ____. REVIEW OF SYSTEMS CONSTITUTIONAL: ANY CHANGE IN YOUR MEDICAL CONDITION? NO . CHILLS NO . FEVER NO . INFECTION: DO YOU HAVE NEW INFECTIONS? NO . DO YOU HAVE HISTORY OF MRSA? NO . MUSCULOSKELETAL: ANY NEW PATTERNS OF PAIN OR NUMBNESS? NO . GASTROENTEROLOGY: GENERAL RECENT COLONOSOPY WHICH WAS REPORTED CLEAR. TO BE SCHEDULED FOR ENDOSCOPY. . ANY NEW CHANGE IN BOWEL CONTROL? NO . GENITOURINARY: ANY NEW CHANGE IN BLADDER CONTROL? NO . IS THERE A CHANCE YOU COULD BE ? NO . HEMATOLOGY/LYMPH: DO YOU TAKE ANY BLOOD THINNERS? (FOR EXAMPLE- COUMADIN, PLAVIX, AGGRENOX, PLATEL, PRADAXA, OR XARELTO) YES, COUMADIN - INR IS THERAPEUTIC . WHEN WAS YOUR LAST DOSE? DATE: TIME: 07/04/160 . NEUROLOGY: HAVE YOU FALLEN IN THE PAST 6 MONTHS? YES, APPROX 1 MONTH AGO--JUST LOST HER BALANCE AND SLIPPED DOWN 2 STEPS. . ANY NEW EXTREMITY NUMBNESS OR WEAKNESS? NO . CARDIOLOGY: DO YOU HAVE A PACEMAKER OR DEFIBRILLATOR? NO . RESPIRATORY: HAVE YOU BEEN SICK IN THE PAST WEEK? NO . FEVER NO . FLU LIKE SYMPTOMS? NO . COUGH NO . INTEGUMENTARY: DO YOU HAVE ANY RASHES OR OPEN SORES? NO . ALLERGIC/IMMUNO: ARE YOU ALLERGIC TO SHELLFISH OR IV DYE? YES, HEART CATH DYE . ANY NEW ALLERGIES? NO . PSYCHIATRIC: DO YOU HAVE THOUGHTS OF HURTING YOURSELF OR SOMEONE ELSE? NO . ARE YOU ABUSED, NEGLECTED, OR IN AN UNSAFE ENVIRONMENT? NO . ENDOCRINOLOGY: ARE YOU DIABETIC? YES, FSBS 80 THIS A.M . OTHER: DO YOU NEED ANY PRESCRIPTIONS? NO . IF YES, PLEASE LIST: ____ . ANY NEW PROBLEMS WITH YOUR MEDICATIONS? NO . WHEN DID YOU LAST EAT? ____ . WHEN DID YOU LAST DRINK? ____ . WHAT DID YOU LAST DRINK? ____ . NAME OF PERSON DRIVING YOU HOME? ____ . DO YOU HAVE ANY OTHER QUESTIONS OR CONCERNS NO . REVIEWED BY: PROVIDER: DIANA FLOREZ FUNCTIONAL SUPPORT ANALYST . VITAL SIGNS WT 207.4 LBS, HT 71 IN, BMI 28.92 INDEX, BP 1139/76 MM HG, HR 88 /MIN, RR 16 /MIN, TEMP 98.0 F, OXYGEN SAT % 95, REVIEWED BY: ANTONY. EXAMINATION GENERAL EXAMINATION: PSYCHALERT , ORIENTED X 3 , APPROPRIATE MOOD AND AFFECT , SOMEWHAT IRRITABLE BUT LAUGHING. LUNGS:CLEAR TO AUSCULTATION BILATERALLY. HEART:HEART RATE REGULAR. MUSCULOSKELETAL:TRIGGER POINTS AND TIGHT FIBROUS BANDS IDENTIFIED OVER TRAPEZIUS MUSCLES AND ACROSS THE LUMBOSACRAL MUSCLES. RISES EASILY TODAY TO A STANDING POSITION. POSTURE UPRIGHT, GAIT WIDEBASED, SLOW, ANTALGIC.. ASSESSMENTS PERIPHERAL NEUROPATHY - G62.9 (PRIMARY) CHRONIC PRESCRIPTION OPIATE USE - Z79.899 LUMBAR POST-LAMINECTOMY SYNDROME - M96.1 TREATMENT PERIPHERAL NEUROPATHY NOTES: CONTINUE CURRENT MEDS. WALK TOLERATED. CALL WHEN SCRIPTS DUE. CLINICAL NOTES: ISTOP REGISTRY REVIEWED AND DEMNOSTRATES COMPLLIANCE. BRINGS IN MEDICATIONS WHICH IS APPROPRIATE FOR WHAT WAS DISPENSED. RECENT URINE TOXICOLOGY REVIEWED. NO UNAUTHORIZED MEDICATIONS. NO ILLICIT SUBSTANCES AND PRESCRIBED MEDICATIONS WERE PRESENT. PROCEDURE CODES FA211 ESTABILISHED PATIENT [facility] CHARGE DISPOSITION & COMMUNICATION FOLLOW UP 7 WEEKS (REASON: NECK/BACK/SHOULDER) ELECTRONICALLY SIGNED BY SAVANA FERNANDEZ ON 07/24/2016 AT 02:18 PM EDT DISCLAIMER : THIS IS A VISIT SUMMARY EXTRACTED FROM THE [employer] CHART. IT IS NOT A COPY OF THE [employer] PROGRESS NOTE. JHON
== END ==
LOC: M PAIN 11:00
PROVIDERS: ATTEND Nurse Practitioner Family
DX: G89.29 Other chronic pain (principal); G62.9 Polyneuropathy, unspecified; M96.1 Postlaminectomy syndrome, not elsewhere classified; E11.9 Type 2 diabetes mellitus without complications; I10 Essential (primary) hypertension; E78.00 Pure hypercholesterolemia, unspecified; G43.909 Migraine, unspecified, not intractable, without status migrainosus; K21.9 Gastro-esophageal reflux disease without esophagitis; K44.9 Diaphragmatic hernia without obstruction or gangrene; F17.210 Nicotine dependence, cigarettes, uncomplicated; Z91.030 Bee allergy status; Z91.018 Allergy to other foods; Z91.041 Radiographic dye allergy status; Z88.5 Allergy status to narcotic agent; Z88.8 Allergy status to other drugs, medicaments and biological substances; Z88.6 Allergy status to analgesic agent; Z79.01 Long term (current) use of anticoagulants; Z79.84 Long term (current) use of oral hypoglycemic drugs; Z79.82 Long term (current) use of aspirin; Z79.891 Long term (current) use of opiate analgesic; Z79.899 Other long term (current) drug therapy

== ENCOUNTER → 2016-08-22 | Outpatient (CLI) | payer OTHER ==
[~2016-08-22] MED LIST changes: -ALTA10CA3 PO; +ALTA1CAP4 PO; -FOLI1TAB2 PO; +FOLI1TAB4 PO; +METO1TAB32 PO; -METO25TA74 PO; -MUCI600T34 PO; +MUCI600T37 PO; +TRAZ-136 PO; -TRAZ100T4 PO
--- NOTE | 2016-09-12 00:28 | ECWPNPC ---
PATIENT NAME: MIGUEL PICKETT : 1965 GENDER: FEMALE VISIT DATE: 08/22/2016 DISCHARGE DATE: 08/22/16 1441 VISIT LOCKED DATE TIME: PHYSICIAN: DIANA FLOREZ PHYSICIAN PAGER NO: [phone] RESOURCE: DIANA FLOREZ REASON FOR APPOINTMENT 1. NECK/BACK/SHOULDER HISTORY OF PRESENT ILLNESS HISTORY OF PRESENT ILLNESS: PAIN THE PATIENT DESCRIBES THE PAIN... FALL RISK SCREENING: SCREENING :NO FALLS IN THE PAST YEAR TODAY'S VISIT: NOTES: RATES PAIN LEVEL TODAY 2/10. NOTES PAIN IS CENTERED IN LEFT SHOULDER WITH RADIATION DOWN LEFT ARM, AND IN LOW BACK WITH RADIATION TO LEGS. DESCRIBES PAIN CONSTANT, ACHING, BURNING, SHARP AND STABBING, SHOOTING, THROBBING AND SORE. . CURRENT MEDICATIONS TAKING LORATADINE ALLERGY RELIEF 10 MG TABLET DISPERSIBLE 1 TABLET ON THE TONGUE AND ALLOW TO DISSOLVE ORALLY ONCE A DAY TAKING CETIRIZINE HCL 10 MG TABLET 1 TABLET NEEDED ORALLY ONCE A DAY TAKING METFORMIN 500 MG 1 TAB ORAL DAILY TAKING FOLIC ACID 1 MG TABLET 1 TABLET ORALLY ONCE A DAY TAKING COUMADIN 2 MG TABLET 1 TABLET ORALLY 6MG DAILY EXCEPT FOR MONDAY DOSE IS 4 MG TAKING RANITIDINE 75 75 MG TABLET ORALLY BID TAKING VITAMIN D 1000 UNIT CAPSULE 1 CAPSULE ORALLY WEEKLY TAKING RAMIPRIL 10 10 MG TABLET 1 CAP(S) P.O. DAILY TAKING PROAIR HFA 108 (90 BASE) MCG/ACT AEROSOL SOLUTION 2 PUFFS NEEDED INHALATION BID TAKING SIMVASTATIN 40 40MG TABLET 2 TABS ORAL DAILY TAKING MUCINEX 600 MG TABLET EXTENDED RELEASE 1 TABLET NEEDED ORALLY EVERY 12 HRS TAKING TRAZODONE 100 100MG TABLET ORAL DAILY AT BEDTIME TAKING NITROSTAT 0.4 MG TABLET SUBLINGUAL SUBLINGUAL DIRECTED TAKING DEPO-SUBQ PROVERA 104 104 MG/0.65ML SUSPENSION 0.65 ML SUBCUTANEOUS EVERY 3 MOS TAKING VENTOLIN HFA 108 (90 BASE) MCG/ACT AEROSOL SOLUTION 2 PUFFS NEEDED INHALATION EVERY 4 HRS TAKING SPIRIVA HANDIHALER 18 MCG CAPSULE 1 CAPSULE INHALATION ONCE A DAY TAKING CLONAZEPAM 1 MG TABLET 1 TABLET ORALLY TWICE A DAY TAKING MIRTAZAPINE 15 MG TABLET 1 TABLET BEFORE BEDTIME IN THE EVENING ORALLY ONCE A DAY TAKING OMEPRAZOLE 20MG 20MG TABLET 2 TAB(S) ORAL DAILY TAKING EPIPEN 0.3 MG/0.3ML (1:1000) DEVICE INTRAMUSCULAR DAILY NEEDED TAKING FLUTICASONE PROPIONATE HFA 44 MCG/ACT AEROSOL 2 PUFFS INHALATION TWICE A DAY TAKING AZELASTINE-FLUTICASONE 137-50 MCG/ACT SUSPENSION 1 PUFF IN EACH NOSTRIL NASALLY TWICE A DAY TAKING ASPIRIN 81 MG TABLET CHEWABLE 1 TABLET ORALLY ONCE A DAY TAKING LINZESS 290 MCG CAPSULE 1 CAPSULE ORALLY ONCE A DAY TAKING CYMBALTA 30 MG CAPSULE DELAYED RELEASE PARTICLES 1 CAPSULE ORALLY DAILY TAKING OXYCODONE HCL 15 MG TABLET 1 TABLET NEEDED ORALLY EVERY 4 - 6 HRS PRN PAIN MDD=5 TAKING SOMA 350 MG TABLET 1 TABLET NEEDED ORALLY Q8 HRS MDD=3 NOT-TAKING TIZANIDINE HCL 4 MG TABLET 1 1/2 TAB ORALLY THREE TIMES A DAY NOT-TAKING METOPROLOL SUCCINATE ER 25 MG TABLET EXTENDED RELEASE 24 HOUR 1 TABLET ORALLY ONCE A DAY NOT-TAKING TRAZODONE HCL 100 MG TABLET 1 TABLET AT BEDTIME ORALLY BEFORE BEDTIME NOT-TAKING NUCYNTA ER 100 MG TABLET EXTENDED RELEASE 12 HOUR 1 TABLET ORALLY QID MDD =4 CHRONIC PAIN NOT-TAKING AMITRIPTYLINE HCL 25 MG TABLET 1 TABLET ORALLY TAKE 1 OR 2 AT BEDTIME NOT-TAKING CARISOPRODOL 350 MG TABLET 1 TABLET NEEDED ORALLY BID PRN UNKNOWN HYOSCYAMINE 0.15 MG TABLET 1 TABLET ORALLY THREE TIMES A DAY MEDICATION LIST REVIEWED AND RECONCILED WITH THE PATIENT PAST MEDICAL HISTORY NIDDM,HTN,HIGH CHOLESTEROL,CHRONIC PAIN, MIGRAINES,GERD,HIATAL HERNIA,DIVERTICULITIS ALLERGIES BEES: ANAPHYLAXIS: ALLERGY ANTI DEPRESANTS: MOOD ALTERATION--MEAN, ANGRY: SIDE EFFECTS ACETAMINOPHEN: N/V: SIDE EFFECTS ASPERTAME: N/V: SIDE EFFECTS HEART CATH DYE: ANAPHYLAXIS: ALLERGY FENTANYL : TASTE CHANGES: SIDE EFFECTS REVIEW OF SYSTEMS REVIEWED BY: PROVIDER: DIANA KIM . CONSTITUTIONAL: ANY CHANGE IN YOUR MEDICAL CONDITION? NO . CHILLS NO . FEVER NO . INFECTION: DO YOU HAVE NEW INFECTIONS? NO . DO YOU HAVE HISTORY OF MRSA? NO . MUSCULOSKELETAL: ANY NEW PATTERNS OF PAIN OR NUMBNESS? NO . GASTROENTEROLOGY: ANY NEW CHANGE IN BOWEL CONTROL? NO . GENITOURINARY: ANY NEW CHANGE IN BLADDER CONTROL? NO . IS THERE A CHANCE YOU COULD BE ? NO . HEMATOLOGY/LYMPH: DO YOU TAKE ANY BLOOD THINNERS? (FOR EXAMPLE- COUMADIN, PLAVIX, AGGRENOX, PLATEL, PRADAXA, OR XARELTO) YES, COUMADIN . WHEN WAS YOUR LAST DOSE? DATE: TIME: 08-21-16 10:30 . NEUROLOGY: HAVE YOU FALLEN IN THE PAST 6 MONTHS? YES . ANY NEW EXTREMITY NUMBNESS OR WEAKNESS? NO . CARDIOLOGY: DO YOU HAVE A PACEMAKER OR DEFIBRILLATOR? NO . RESPIRATORY: HAVE YOU BEEN SICK IN THE PAST WEEK? NO . FEVER NO . FLU LIKE SYMPTOMS? NO . COUGH NO . INTEGUMENTARY: DO YOU HAVE ANY RASHES OR OPEN SORES? NO . ALLERGIC/IMMUNO: ARE YOU ALLERGIC TO SHELLFISH OR IV DYE? YES . ANY NEW ALLERGIES? NO . PSYCHIATRIC: DO YOU HAVE THOUGHTS OF HURTING YOURSELF OR SOMEONE ELSE? NO . ARE YOU ABUSED, NEGLECTED, OR IN AN UNSAFE ENVIRONMENT? NO . ENDOCRINOLOGY: ARE YOU DIABETIC? NO . OTHER: DO YOU NEED ANY PRESCRIPTIONS? YES . IF YES, PLEASE LIST: OXYCODONE FOR THE 25TH . ANY NEW PROBLEMS WITH YOUR MEDICATIONS? NO . WHEN DID YOU LAST EAT? ____ . WHEN DID YOU LAST DRINK? ____ . WHAT DID YOU LAST DRINK? ____ . NAME OF PERSON DRIVING YOU HOME? ____ . DO YOU HAVE ANY OTHER QUESTIONS OR CONCERNS NO . VITAL SIGNS WT 208 LBS, HT 71 IN, BMI 29.01 INDEX, BP 122/69 MM HG, HR 98 /MIN, RR 16 /MIN, TEMP 97.7 F, OXYGEN SAT % 96%, NA INITIALS SC 14:09, REVIEWED BY: ARCELIA. EXAMINATION GENERAL EXAMINATION: PSYCHALERT , ORIENTED X 3 , APPROPRIATE MOOD AND AFFECT , SOMEWHAT IRRITABLE BUT LAUGHING. LUNGS:CLEAR TO AUSCULTATION BILATERALLY. HEART:HEART RATE REGULAR. MUSCULOSKELETAL:TRIGGER POINTS AND TIGHT FIBROUS BANDS IDENTIFIED OVER TRAPEZIUS MUSCLES AND ACROSS THE LUMBOSACRAL MUSCLES. RISES EASILY TODAY TO A STANDING POSITION. POSTURE UPRIGHT, GAIT WIDEBASED, SLOW, ANTALGIC.. JOINTS:LEFT , SHOULDER , PAIN , WITH RANGE OF MOTION . ASSESSMENTS PERIPHERAL NEUROPATHY - G62.9 (PRIMARY) CHRONIC PRESCRIPTION OPIATE USE - Z79.899 LUMBAR POST-LAMINECTOMY SYNDROME - M96.1 TREATMENT PERIPHERAL NEUROPATHY REFILL OXYCODONE HCL TABLET, 15 MG, 1 TABLET NEEDED, ORALLY, EVERY 4 - 6 HRS PRN PAIN MDD=5, 30 DAY(S), 150, REFILLS 0 NOTES: CONTINUE EXERCISES AND STRETCHES. WALK DAILYCONTINUE BIOFREEZE. CLINICAL NOTES: ISTOP REGISTRY REVIEWED AND DEMNOSTRATES COMPLLIANCE. BRINGS IN MEDICATIONS WHICH IS APPROPRIATE FOR WHAT WAS DISPENSED. RECENT URINE TOXICOLOGY REVIEWED. NO UNAUTHORIZED MEDICATIONS. NO ILLICIT SUBSTANCES AND PRESCRIBED MEDICATIONS WERE PRESENT. PROCEDURE CODES FA211 ESTABILISHED PATIENT [facility] CHARGE DISPOSITION & COMMUNICATION FOLLOW UP 2 MONTHS (REASON: BACK PAIN) ELECTRONICALLY SIGNED BY SAVANA FERNANDEZ ON 09/11/2016 AT 01:09 PM EDT DISCLAIMER : THIS IS A VISIT SUMMARY EXTRACTED FROM THE [employer] CHART. IT IS NOT A COPY OF THE [employer] PROGRESS NOTE. JHON
== END ==
LOC: M PAIN 14:00
PROVIDERS: ATTEND Nurse Practitioner Family
DX: G89.29 Other chronic pain (principal); G62.9 Polyneuropathy, unspecified; M96.1 Postlaminectomy syndrome, not elsewhere classified; E11.9 Type 2 diabetes mellitus without complications; I10 Essential (primary) hypertension; E78.00 Pure hypercholesterolemia, unspecified; G43.909 Migraine, unspecified, not intractable, without status migrainosus; K21.9 Gastro-esophageal reflux disease without esophagitis; K44.9 Diaphragmatic hernia without obstruction or gangrene; Z91.030 Bee allergy status; Z91.041 Radiographic dye allergy status; Z88.6 Allergy status to analgesic agent; Z88.5 Allergy status to narcotic agent; Z88.8 Allergy status to other drugs, medicaments and biological substances; Z79.01 Long term (current) use of anticoagulants; Z79.891 Long term (current) use of opiate analgesic; Z79.899 Other long term (current) drug therapy

== ENCOUNTER → 2016-10-24 | Outpatient (CLI) | payer OTHER ==
--- NOTE | 2016-11-24 02:05 | ECWPNPC ---
PATIENT NAME: MIGUEL PICKETT : 1965 GENDER: FEMALE VISIT DATE: 10/24/2016 DISCHARGE DATE: 10/24/16 1510 VISIT LOCKED DATE TIME: PHYSICIAN: DIANA FLOREZ PHYSICIAN PAGER NO: [phone] RESOURCE: DIANA FLOREZ REASON FOR APPOINTMENT 1. BACK PAIN HISTORY OF PRESENT ILLNESS HISTORY OF PRESENT ILLNESS: PAIN THE PATIENT DESCRIBES THE PAIN... FALL RISK SCREENING: SCREENING :NO FALLS IN THE PAST YEAR TODAY'S VISIT: NOTES: RATES PAIN TODAY 03/18. IS DEALING WITH A BRONCHITIS -ON ABX - THIS IS AGGRAVATING THE SHOULDER AREA PAIN. HAS HAD FOR 3 WEEKS. VERY SLOWLY IMPROVING. HAS BEEN HAVING BURNING UNDER SOLES OF FEET. NOTES ACHING IN LEGS WHEN ON FEET FOR PROLONGED PERIOD. CURRENT MEDICATIONS TAKING LORATADINE ALLERGY RELIEF 10 MG TABLET DISPERSIBLE 1 TABLET ON THE TONGUE AND ALLOW TO DISSOLVE ORALLY ONCE A DAY TAKING CETIRIZINE HCL 10 MG TABLET 1 TABLET NEEDED ORALLY ONCE A DAY TAKING METFORMIN 500 MG 1 TAB ORAL DAILY TAKING FOLIC ACID 1 MG TABLET 1 TABLET ORALLY ONCE A DAY TAKING COUMADIN 2 MG TABLET 1 TABLET ORALLY 6MG DAILY EXCEPT FOR MONDAY DOSE IS 4 MG TAKING RANITIDINE 75 75 MG TABLET ORALLY BID TAKING VITAMIN D 1000 UNIT CAPSULE 1 CAPSULE ORALLY WEEKLY TAKING RAMIPRIL 10 10 MG TABLET 1 CAP(S) P.O. DAILY TAKING PROAIR HFA 108 (90 BASE) MCG/ACT AEROSOL SOLUTION 2 PUFFS NEEDED INHALATION BID TAKING SIMVASTATIN 40 40MG TABLET 2 TABS ORAL DAILY TAKING MUCINEX 600 MG TABLET EXTENDED RELEASE 1 TABLET NEEDED ORALLY EVERY 12 HRS TAKING TRAZODONE 100 100MG TABLET ORAL DAILY AT BEDTIME TAKING NITROSTAT 0.4 MG TABLET SUBLINGUAL SUBLINGUAL DIRECTED TAKING DEPO-SUBQ PROVERA 104 104 MG/0.65ML SUSPENSION 0.65 ML SUBCUTANEOUS EVERY 3 MOS TAKING VENTOLIN HFA 108 (90 BASE) MCG/ACT AEROSOL SOLUTION 2 PUFFS NEEDED INHALATION EVERY 4 HRS TAKING SPIRIVA HANDIHALER 18 MCG CAPSULE 1 CAPSULE INHALATION ONCE A DAY TAKING CLONAZEPAM 1 MG TABLET 1 TABLET ORALLY TWICE A DAY TAKING MIRTAZAPINE 15 MG TABLET 1 TABLET BEFORE BEDTIME IN THE EVENING ORALLY ONCE A DAY TAKING OMEPRAZOLE 20MG 20MG TABLET 2 TAB(S) ORAL DAILY TAKING EPIPEN 0.3 MG/0.3ML (1:1000) DEVICE INTRAMUSCULAR DAILY NEEDED TAKING FLUTICASONE PROPIONATE HFA 44 MCG/ACT AEROSOL 2 PUFFS INHALATION TWICE A DAY TAKING AZELASTINE-FLUTICASONE 137-50 MCG/ACT SUSPENSION 1 PUFF IN EACH NOSTRIL NASALLY TWICE A DAY TAKING ASPIRIN 81 MG TABLET CHEWABLE 1 TABLET ORALLY ONCE A DAY TAKING LINZESS 290 MCG CAPSULE 1 CAPSULE ORALLY ONCE A DAY TAKING CYMBALTA 30 MG CAPSULE DELAYED RELEASE PARTICLES 1 CAPSULE ORALLY DAILY TAKING SOMA 350 MG TABLET 1 TABLET NEEDED ORALLY Q8 HRS MDD=3 TAKING OXYCODONE HCL 15 MG TABLET 1 TABLET NEEDED ORALLY EVERY 4 - 6 HRS PRN PAIN MDD=5 NOT-TAKING TIZANIDINE HCL 4 MG TABLET 1 1/2 TAB ORALLY THREE TIMES A DAY NOT-TAKING METOPROLOL SUCCINATE ER 25 MG TABLET EXTENDED RELEASE 24 HOUR 1 TABLET ORALLY ONCE A DAY NOT-TAKING TRAZODONE HCL 100 MG TABLET 1 TABLET AT BEDTIME ORALLY BEFORE BEDTIME NOT-TAKING NUCYNTA ER 100 MG TABLET EXTENDED RELEASE 12 HOUR 1 TABLET ORALLY QID MDD =4 CHRONIC PAIN NOT-TAKING AMITRIPTYLINE HCL 25 MG TABLET 1 TABLET ORALLY TAKE 1 OR 2 AT BEDTIME NOT-TAKING CARISOPRODOL 350 MG TABLET 1 TABLET NEEDED ORALLY BID PRN UNKNOWN HYOSCYAMINE 0.15 MG TABLET 1 TABLET ORALLY THREE TIMES A DAY MEDICATION LIST REVIEWED AND RECONCILED WITH THE PATIENT PAST MEDICAL HISTORY NIDDM,HTN,HIGH CHOLESTEROL,CHRONIC PAIN, MIGRAINES,GERD,HIATAL HERNIA,DIVERTICULITIS ALLERGIES BEES: ANAPHYLAXIS: ALLERGY ANTI DEPRESANTS: MOOD ALTERATION--MEAN, ANGRY: SIDE EFFECTS ACETAMINOPHEN: N/V: SIDE EFFECTS ASPERTAME: N/V: SIDE EFFECTS HEART CATH DYE: ANAPHYLAXIS: ALLERGY FENTANYL : TASTE CHANGES: SIDE EFFECTS STEROIDS: THRUSH REVIEW OF SYSTEMS REVIEWED BY: PROVIDER: DIANA KIM . CONSTITUTIONAL: ANY CHANGE IN YOUR MEDICAL CONDITION? NO . CHILLS NO . FEVER NO . INFECTION: DO YOU HAVE NEW INFECTIONS? NO . DO YOU HAVE HISTORY OF MRSA? NO . MUSCULOSKELETAL: ANY NEW PATTERNS OF PAIN OR NUMBNESS? NO . GASTROENTEROLOGY: ANY NEW CHANGE IN BOWEL CONTROL? NO . GENITOURINARY: ANY NEW CHANGE IN BLADDER CONTROL? NO . IS THERE A CHANCE YOU COULD BE ? NO . HEMATOLOGY/LYMPH: DO YOU TAKE ANY BLOOD THINNERS? (FOR EXAMPLE- COUMADIN, PLAVIX, AGGRENOX, PLATEL, PRADAXA, OR XARELTO) YES . WHEN WAS YOUR LAST DOSE? DATE: TIME: . NEUROLOGY: HAVE YOU FALLEN IN THE PAST 6 MONTHS? YES . ANY NEW EXTREMITY NUMBNESS OR WEAKNESS? NO . CARDIOLOGY: DO YOU HAVE A PACEMAKER OR DEFIBRILLATOR? NO . RESPIRATORY: HAVE YOU BEEN SICK IN THE PAST WEEK? NO . FEVER NO . FLU LIKE SYMPTOMS? NO . COUGH NO . INTEGUMENTARY: DO YOU HAVE ANY RASHES OR OPEN SORES? NO . ALLERGIC/IMMUNO: ARE YOU ALLERGIC TO SHELLFISH OR IV DYE? NO . ANY NEW ALLERGIES? NO . PSYCHIATRIC: DO YOU HAVE THOUGHTS OF HURTING YOURSELF OR SOMEONE ELSE? NO . ARE YOU ABUSED, NEGLECTED, OR IN AN UNSAFE ENVIRONMENT? NO . ENDOCRINOLOGY: ARE YOU DIABETIC? YES - BLOOD SUGARS UNDER GOOD CONTROL . OTHER: DO YOU NEED ANY PRESCRIPTIONS? YES . IF YES, PLEASE LIST: OXYCODONE . ANY NEW PROBLEMS WITH YOUR MEDICATIONS? NO . WHEN DID YOU LAST EAT? ____ . WHEN DID YOU LAST DRINK? ____ . WHAT DID YOU LAST DRINK? ____ . NAME OF PERSON DRIVING YOU HOME? ____ . DO YOU HAVE ANY OTHER QUESTIONS OR CONCERNS NO . VITAL SIGNS WT 212 LBS, HT 71 IN, BMI 29.56 INDEX, BP 111/59 MM HG, HR 80 /MIN, RR 18 /MIN, TEMP 98.8 F, OXYGEN SAT % 91%, NA INITIALS [id number]. EXAMINATION GENERAL EXAMINATION: PSYCHALERT , ORIENTED X 3 , APPROPRIATE MOOD AND AFFECT . LUNGS:CLEAR TO AUSCULTATION BILATERALLY. HEART:HEART RATE REGULAR. MUSCULOSKELETAL:TRIGGER POINTS AND TIGHT FIBROUS BANDS IDENTIFIED OVER TRAPEZIUS MUSCLES AND ACROSS THE LUMBOSACRAL MUSCLES. RISES EASILY TODAY TO A STANDING POSITION. POSTURE UPRIGHT, GAIT WIDEBASED, SLOW, ANTALGIC.. JOINTS:LEFT , SHOULDER , PAIN , WITH RANGE OF MOTION . ASSESSMENTS PERIPHERAL NEUROPATHY - G62.9 (PRIMARY) CHRONIC PRESCRIPTION OPIATE USE - Z79.899 LUMBAR POST-LAMINECTOMY SYNDROME - M96.1 TREATMENT PERIPHERAL NEUROPATHY REFILL OXYCODONE HCL TABLET, 15 MG, 1 TABLET NEEDED, ORALLY, EVERY 4 - 6 HRS PRN PAIN MDD=5, 30 DAY(S), 150, REFILLS 0 NOTES: CONTINUE CURRENT MEDS. FOLLOW UP WITH PCP ABOUT COUGH. CLINICAL NOTES: ISTOP REGISTRY REVIEWED AND DEMNOSTRATES COMPLLIANCE. (#[id number] BRINGS IN MEDICATIONS WHICH IS APPROPRIATE FOR WHAT WAS DISPENSED. RECENT URINE TOXICOLOGY REVIEWED. NO UNAUTHORIZED MEDICATIONS. NO ILLICIT SUBSTANCES AND PRESCRIBED MEDICATIONS WERE PRESENT. PROCEDURE CODES FA211 ESTABILISHED PATIENT [facility] CHARGE DISPOSITION & COMMUNICATION FOLLOW UP 2 MONTHS (REASON: NECK/BACK) ELECTRONICALLY SIGNED BY SAVANA FERNANDEZ ON 11/22/2016 AT 12:56 PM EDT DISCLAIMER : THIS IS A VISIT SUMMARY EXTRACTED FROM THE [employer] CHART. IT IS NOT A COPY OF THE [employer] PROGRESS NOTE. MTDD
== END ==
LOC: M PAIN 14:15
PROVIDERS: ATTEND Nurse Practitioner Family
DX: M96.1 Postlaminectomy syndrome, not elsewhere classified (principal); G62.9 Polyneuropathy, unspecified; E11.9 Type 2 diabetes mellitus without complications; I10 Essential (primary) hypertension; E78.00 Pure hypercholesterolemia, unspecified; K21.9 Gastro-esophageal reflux disease without esophagitis; K44.9 Diaphragmatic hernia without obstruction or gangrene; Z88.5 Allergy status to narcotic agent; Z88.6 Allergy status to analgesic agent; Z88.8 Allergy status to other drugs, medicaments and biological substances; Z91.030 Bee allergy status; Z91.041 Radiographic dye allergy status; Z79.01 Long term (current) use of anticoagulants; Z79.84 Long term (current) use of oral hypoglycemic drugs; Z79.82 Long term (current) use of aspirin; Z79.891 Long term (current) use of opiate analgesic

== ENCOUNTER → 2016-12-23 | Outpatient (CLI) | payer OTHER ==
--- NOTE | 2016-12-26 00:51 | ECWPNPC ---
PATIENT NAME: MIGUEL PICKETT : 1965 GENDER: FEMALE VISIT DATE: 12/23/2016 DISCHARGE DATE: 12/23/16 1541 VISIT LOCKED DATE TIME: PHYSICIAN: DIANA FLOREZ PHYSICIAN PAGER NO: [phone] RESOURCE: DIANA FLOREZ REASON FOR APPOINTMENT 1. NECK/BACK HISTORY OF PRESENT ILLNESS HISTORY OF PRESENT ILLNESS: PAIN THE PATIENT DESCRIBES THE PAIN... FALL RISK SCREENING: SCREENING :NO FALLS IN THE PAST YEAR TODAY'S VISIT: NOTES: RATES PAIN TODAY 10. NOTES COLD HAS MADE THE LEGS QUITE UNCOMFORTABLE. HAS HAD SOME DIFFICULTY WITH FINDING A COMFORTABLE POSITION FOR SLEEP.. CURRENT MEDICATIONS TAKING LORATADINE ALLERGY RELIEF 10 MG TABLET DISPERSIBLE 1 TABLET ON THE TONGUE AND ALLOW TO DISSOLVE ORALLY ONCE A DAY TAKING CETIRIZINE HCL 10 MG TABLET 1 TABLET NEEDED ORALLY ONCE A DAY TAKING METFORMIN 500 MG 1 TAB ORAL DAILY TAKING FOLIC ACID 1 MG TABLET 1 TABLET ORALLY ONCE A DAY TAKING COUMADIN 2 MG TABLET 1 TABLET ORALLY 6MG DAILY EXCEPT FOR MONDAY DOSE IS 4 MG TAKING RANITIDINE 75 75 MG TABLET ORALLY BID TAKING VITAMIN D 1000 UNIT CAPSULE 1 CAPSULE ORALLY WEEKLY TAKING RAMIPRIL 10 10 MG TABLET 1 CAP(S) P.O. DAILY TAKING PROAIR HFA 108 (90 BASE) MCG/ACT AEROSOL SOLUTION 2 PUFFS NEEDED INHALATION BID TAKING SIMVASTATIN 40 40MG TABLET 2 TABS ORAL DAILY TAKING MUCINEX 600 MG TABLET EXTENDED RELEASE 1 TABLET NEEDED ORALLY EVERY 12 HRS TAKING TRAZODONE 100 100MG TABLET ORAL DAILY AT BEDTIME TAKING NITROSTAT 0.4 MG TABLET SUBLINGUAL SUBLINGUAL DIRECTED TAKING DEPO-SUBQ PROVERA 104 104 MG/0.65ML SUSPENSION 0.65 ML SUBCUTANEOUS EVERY 3 MOS TAKING VENTOLIN HFA 108 (90 BASE) MCG/ACT AEROSOL SOLUTION 2 PUFFS NEEDED INHALATION EVERY 4 HRS TAKING SPIRIVA HANDIHALER 18 MCG CAPSULE 1 CAPSULE INHALATION ONCE A DAY TAKING CLONAZEPAM 1 MG TABLET 1 TABLET ORALLY TWICE A DAY TAKING MIRTAZAPINE 15 MG TABLET 1 TABLET BEFORE BEDTIME IN THE EVENING ORALLY ONCE A DAY TAKING OMEPRAZOLE 20MG 20MG TABLET 2 TAB(S) ORAL DAILY TAKING EPIPEN 0.3 MG/0.3ML (1:1000) DEVICE INTRAMUSCULAR DAILY NEEDED TAKING FLUTICASONE PROPIONATE HFA 44 MCG/ACT AEROSOL 2 PUFFS INHALATION TWICE A DAY TAKING AZELASTINE-FLUTICASONE 137-50 MCG/ACT SUSPENSION 1 PUFF IN EACH NOSTRIL NASALLY TWICE A DAY TAKING ASPIRIN 81 MG TABLET CHEWABLE 1 TABLET ORALLY ONCE A DAY TAKING LINZESS 290 MCG CAPSULE 1 CAPSULE ORALLY ONCE A DAY TAKING CYMBALTA 30 MG CAPSULE DELAYED RELEASE PARTICLES 1 CAPSULE ORALLY DAILY TAKING SOMA 350 MG TABLET 1 TABLET NEEDED ORALLY Q8 HRS MDD=3 TAKING OXYCODONE HCL 15 MG TABLET 1 TABLET NEEDED ORALLY EVERY 4 - 6 HRS PRN PAIN MDD=5 NOT-TAKING TIZANIDINE HCL 4 MG TABLET 1 1/2 TAB ORALLY THREE TIMES A DAY NOT-TAKING METOPROLOL SUCCINATE ER 25 MG TABLET EXTENDED RELEASE 24 HOUR 1 TABLET ORALLY ONCE A DAY NOT-TAKING TRAZODONE HCL 100 MG TABLET 1 TABLET AT BEDTIME ORALLY BEFORE BEDTIME NOT-TAKING NUCYNTA ER 100 MG TABLET EXTENDED RELEASE 12 HOUR 1 TABLET ORALLY QID MDD =4 CHRONIC PAIN NOT-TAKING AMITRIPTYLINE HCL 25 MG TABLET 1 TABLET ORALLY TAKE 1 OR 2 AT BEDTIME NOT-TAKING CARISOPRODOL 350 MG TABLET 1 TABLET NEEDED ORALLY BID PRN NOT-TAKING HYOSCYAMINE 0.15 MG TABLET 1 TABLET ORALLY THREE TIMES A DAY PAST MEDICAL HISTORY NIDDM,HTN,HIGH CHOLESTEROL,CHRONIC PAIN, MIGRAINES,GERD,HIATAL HERNIA,DIVERTICULITIS ALLERGIES BEES: ANAPHYLAXIS: ALLERGY ANTI DEPRESANTS: MOOD ALTERATION--MEAN, ANGRY: SIDE EFFECTS ACETAMINOPHEN: N/V: SIDE EFFECTS ASPERTAME: N/V: SIDE EFFECTS HEART CATH DYE: ANAPHYLAXIS: ALLERGY FENTANYL : TASTE CHANGES: SIDE EFFECTS STEROIDS: THRUSH SOCIAL HISTORY GENERAL: TOBACCO USE ARE YOU A:CURRENT SMOKER HOW MANY CIGARETTES A DAY DO YOU SMOKE?5 OR LESS CIGARS HOW SOON AFTER YOU WAKE UP DO YOU SMOKE YOUR FIRST CIGARETTE?6-30 MIN HOW OFTEN DO YOU SMOKE CIGARETTES?EVERY DAY PATIENT COUNSELED ON THE DANGERS OF TOBACCO USE AND URGED TO QUIT:07/05/2016 ARE YOU INTERESTED IN QUITTING?THINKING ABOUT QUITTING HAS EVERYTHING AT HOME TO QUIT BUT DOESN'T HAVE THE WILL POWER YET COUNSELED THE PATIENT ON SMOKING CESSATION, EDUCATION [id number]/2017 CAFFEINE CAFFEINE USE?YES HOW OFTEN AND HOW MUCH? 2 CUPS COFFEE PER DAY MORMONISM [id number] NONE NO PENTECOSTALISM BELIEFS THAT WOULD IMPACT HEALTH CARE. PAIN CLINIC PFS, CLERGY, PUBLIC HEALTH REFERRALS CLERGY REFERRAL NEEDED?NO WAS THE PROVIDER NOTIFIED OF ANY PERTINENT INFO?NO PFS REFERRAL NEEDED?NO PUBLIC HEALTH REFERRAL NEEDED?NO PATIENT: ____. ADVANCE DIRECTIVES HEALTH CARE PROXY?NO WOULD YOU LIKE MORE INFORMATION?NO REVIEW OF SYSTEMS REVIEWED BY: PROVIDER: DIANA KIM . CONSTITUTIONAL: ANY CHANGE IN YOUR MEDICAL CONDITION? NO . CHILLS NO . FEVER NO . INFECTION: DO YOU HAVE NEW INFECTIONS? NO . DO YOU HAVE HISTORY OF MRSA? NO . MUSCULOSKELETAL: ANY NEW PATTERNS OF PAIN OR NUMBNESS? NO . GASTROENTEROLOGY: GENERAL NO CONSTIPATION . ANY NEW CHANGE IN BOWEL CONTROL? NO . GENITOURINARY: ANY NEW CHANGE IN BLADDER CONTROL? NO . IS THERE A CHANCE YOU COULD BE ? NO . HEMATOLOGY/LYMPH: DO YOU TAKE ANY BLOOD THINNERS? (FOR EXAMPLE- COUMADIN, PLAVIX, AGGRENOX, PLATEL, PRADAXA, OR XARELTO) YES, COUMADIN . WHEN WAS YOUR LAST DOSE? DATE: TIME: . NEUROLOGY: HAVE YOU FALLEN IN THE PAST 6 MONTHS? YES, COUPLE WEEKS AGO SLIPPER CAUGHT ON STAIRS . ANY NEW EXTREMITY NUMBNESS OR WEAKNESS? NO . CARDIOLOGY: DO YOU HAVE A PACEMAKER OR DEFIBRILLATOR? NO . CHEST PAIN PATIENT DENIES . RESPIRATORY: HAVE YOU BEEN SICK IN THE PAST WEEK? NO . FEVER NO . FLU LIKE SYMPTOMS? NO . COUGH YES . INTEGUMENTARY: DO YOU HAVE ANY RASHES OR OPEN SORES? NO . ALLERGIC/IMMUNO: ARE YOU ALLERGIC TO SHELLFISH OR IV DYE? NO . ANY NEW ALLERGIES? NO . PSYCHIATRIC: DO YOU HAVE THOUGHTS OF HURTING YOURSELF OR SOMEONE ELSE? NO . ARE YOU ABUSED, NEGLECTED, OR IN AN UNSAFE ENVIRONMENT? NO . ENDOCRINOLOGY: ARE YOU DIABETIC? YES . OTHER: DO YOU NEED ANY PRESCRIPTIONS? YES . IF YES, PLEASE LIST: SOMA , OXYCODONE . ANY NEW PROBLEMS WITH YOUR MEDICATIONS? NO . WHEN DID YOU LAST EAT? ____ . WHEN DID YOU LAST DRINK? ____ . WHAT DID YOU LAST DRINK? ____ . NAME OF PERSON DRIVING YOU HOME? ____ . DO YOU HAVE ANY OTHER QUESTIONS OR CONCERNS NO . VITAL SIGNS WT 222.4 LBS, HT 71 IN, BMI 31.02 INDEX, BP 157/74 MM HG, HR 73 /MIN, RR 18 /MIN, TEMP 98.6 F, OXYGEN SAT % 95%, NA INITIALS SC 15:05. EXAMINATION GENERAL EXAMINATION: EXTREMITIES:1+ EDEMA BILATERAL LOWER EXTREMITIES. ASSESSMENTS PERIPHERAL NEUROPATHY - G62.9 (PRIMARY) CHRONIC PRESCRIPTION OPIATE USE - Z79.899 LUMBAR POST-LAMINECTOMY SYNDROME - M96.1 TREATMENT PERIPHERAL NEUROPATHY REFILL SOMA TABLET, 350 MG, 1 TABLET NEEDED, ORALLY, Q8 HRS MDD=3, 30 DAY(S), 90 TABLET, REFILLS 0 REFILL OXYCODONE HCL TABLET, 15 MG, 1 TABLET NEEDED, ORALLY, EVERY 4 - 6 HRS PRN PAIN MDD=5, 30 DAY(S), 150, REFILLS 0 NOTES: CHECK ON POSSIBLE RESTLESS LEGS. CLINICAL NOTES: ISTOP REGISTRY REVIEWED AND DEMNOSTRATES COMPLLIANCE.(REF # [id number]) BRINGS IN MEDICATIONS WHICH IS APPROPRIATE FOR WHAT WAS DISPENSED. RECENT URINE TOXICOLOGY REVIEWED. NO UNAUTHORIZED MEDICATIONS. NO ILLICIT SUBSTANCES AND PRESCRIBED MEDICATIONS WERE PRESENT. PROCEDURE CODES FA211 ESTABILISHED PATIENT [facility] CHARGE DISPOSITION & COMMUNICATION FOLLOW UP 7 WEEKS (REASON: BACK PAIN) ELECTRONICALLY SIGNED BY SAVANA FERNANDEZ ON 12/25/2016 AT 07:21 PM EST DISCLAIMER : THIS IS A VISIT SUMMARY EXTRACTED FROM THE [employer] CHART. IT IS NOT A COPY OF THE [employer] PROGRESS NOTE. JHON
== END ==
LOC: M PAIN 14:30
PROVIDERS: ATTEND Nurse Practitioner Family
DX: G89.29 Other chronic pain (principal); G62.9 Polyneuropathy, unspecified; Z79.899 Other long term (current) drug therapy; M96.1 Postlaminectomy syndrome, not elsewhere classified; F17.210 Nicotine dependence, cigarettes, uncomplicated; E11.9 Type 2 diabetes mellitus without complications; I10 Essential (primary) hypertension; E78.00 Pure hypercholesterolemia, unspecified; G43.909 Migraine, unspecified, not intractable, without status migrainosus; K21.9 Gastro-esophageal reflux disease without esophagitis; K44.9 Diaphragmatic hernia without obstruction or gangrene; Z91.030 Bee allergy status; Z88.5 Allergy status to narcotic agent; Z88.8 Allergy status to other drugs, medicaments and biological substances; Z91.041 Radiographic dye allergy status; Z79.84 Long term (current) use of oral hypoglycemic drugs; Z79.01 Long term (current) use of anticoagulants; Z79.82 Long term (current) use of aspirin; Z79.891 Long term (current) use of opiate analgesic

== ENCOUNTER → 2017-01-03 | Day surgery (SDC) | payer OTHER ==
[~2017-01-03] VITALS: Ht 180.3 cm; Wt 99.8 kg
[~2017-01-03] MED LIST changes: +LIDOCAINE 2% INJ 100 MG/5 ML SDV (FOR ANES.) As Ordered ONE; +PROPOFOL 200 MG/20 ML VIAL As Ordered ONE
== END ==
LOC: M OPP 10:53
PROVIDERS: ATTEND Internal Medicine Gastroenterology
DX: R12 Heartburn (principal); Z53.9 Procedure and treatment not carried out, unspecified reason

== ENCOUNTER → 2017-02-10 | Outpatient (CLI) | payer OTHER | LOC: M PAIN 13:45 | DX: G62.9 Polyneuropathy, unspecified (principal); M96.1 Postlaminectomy syndrome, not elsewhere classified; E11.9 Type 2 diabetes mellitus without complications; I10 Essential (primary) hypertension; E78.00 Pure hypercholesterolemia, unspecified; G89.29 Other chronic pain; G43.909 Migraine, unspecified, not intractable, without status migrainosus; F17.210 Nicotine dependence, cigarettes, uncomplicated; Z79.01 Long term (current) use of anticoagulants; Z79.82 Long term (current) use of aspirin; Z79.84 Long term (current) use of oral hypoglycemic drugs; Z79.891 Long term (current) use of opiate analgesic; Z79.899 Other long term (current) drug therapy; Z88.8 Allergy status to other drugs, medicaments and biological substances; Z91.030 Bee allergy status; Z91.041 Radiographic dye allergy status | CPT/HCPCS: G0463 ==

== ENCOUNTER → 2017-03-22 | Outpatient (CLI) | payer OTHER | LOC: M RAD 14:03 | DX: J32.0 Chronic maxillary sinusitis (principal) | CPT/HCPCS: 70486 ==

== ENCOUNTER → 2017-04-10 | Outpatient (CLI) | payer OTHER | LOC: M PAIN 14:45 | DX: G62.9 Polyneuropathy, unspecified (principal); M96.1 Postlaminectomy syndrome, not elsewhere classified; I10 Essential (primary) hypertension; E11.9 Type 2 diabetes mellitus without complications; E78.00 Pure hypercholesterolemia, unspecified; K21.9 Gastro-esophageal reflux disease without esophagitis; F17.210 Nicotine dependence, cigarettes, uncomplicated; Z79.82 Long term (current) use of aspirin; Z79.84 Long term (current) use of oral hypoglycemic drugs; Z79.891 Long term (current) use of opiate analgesic; Z79.899 Other long term (current) drug therapy; Z91.030 Bee allergy status; Z88.8 Allergy status to other drugs, medicaments and biological substances; Z91.041 Radiographic dye allergy status | CPT/HCPCS: G0463 ==

== ENCOUNTER → 2017-06-12 | Outpatient (CLI) | payer OTHER | LOC: M PAIN 14:00 | DX: M46.1 Sacroiliitis, not elsewhere classified (principal); G62.9 Polyneuropathy, unspecified; M96.1 Postlaminectomy syndrome, not elsewhere classified; I10 Essential (primary) hypertension; E11.9 Type 2 diabetes mellitus without complications; E78.5 Hyperlipidemia, unspecified; K21.9 Gastro-esophageal reflux disease without esophagitis; G43.909 Migraine, unspecified, not intractable, without status migrainosus; K44.9 Diaphragmatic hernia without obstruction or gangrene; Z79.01 Long term (current) use of anticoagulants; Z79.82 Long term (current) use of aspirin; Z79.84 Long term (current) use of oral hypoglycemic drugs; Z79.891 Long term (current) use of opiate analgesic; Z79.899 Other long term (current) drug therapy; Z88.5 Allergy status to narcotic agent; Z88.6 Allergy status to analgesic agent; Z88.8 Allergy status to other drugs, medicaments and biological substances; Z91.030 Bee allergy status; Z91.041 Radiographic dye allergy status | CPT/HCPCS: G0463 ==

== ENCOUNTER → 2017-06-16 | Outpatient (CLI) | payer OTHER | LOC: M RAD 14:49 | DX: I38 Endocarditis, valve unspecified (principal); R00.2 Palpitations; I42.0 Dilated cardiomyopathy; R06.02 Shortness of breath | CPT/HCPCS: 93971 ==

== ENCOUNTER → 2017-07-10 | Outpatient (CLI) | payer OTHER ==
[~2017-07-10] MED LIST changes: -/ESOM40CA OR; -/TIOT18INH INH; -/WARF2TA OR; -ALBU17IN INH; -ALTA10CA OR; -ALTA1CAP4 PO; -ARTISOL10 OU; -ASPI81TA83 OR; -ASPI81TA85 PO; -BACL10TA2 OR; -BACL10TA2 PO; +BUPIVACAINE HCL 0.25% 30 ML VIAL As Ordered; -CLAR1TAB2 PO; -CLON1TAB OR; -CLON1TAB PO; -COMBVENT INFIL; -COUM1TAB14 PO; -COUM6TAB PO; -CYCL10TA PO; -DEPO-PROVERA IM; -DEPRO PROVERA IM; -DULO30CA PO; -EPIP0.3I IM; -EPIP0.3I2 IM; -FLEXERIL PO; -FLON0.05; -FLON1SPR; -FLUCTICASONE; -FOLI1TAB OR; -FOLI1TAB4 PO; -FURO20TA2 OR; -GABA600T3 OR; -HYOMAX PO; +ISOVUE-M 300 61% 15ML VIAL (Q9967) As Ordered; +LIDOCAINE 1% SDV INJ 30 ML VIAL As Ordered; -LIDOCAINE 2% INJ 100 MG/5 ML SDV (FOR ANES.) As Ordered ONE; -LINZ290C PO; -LOPR50TA OR; -LYRI75CA PO; -METF-414 PO; -METO1TAB32 PO; -MIRT15TA3 PO; -MUCI600T37 PO; -MUCINEX PO; -NITR0.4S SL; -NITR4TASL SL; -NYSTATIN TOP; -OMEP20TA PO; -OMEP40CA2 PO; -OXYC10TA12 PO; -OXYC15TA76 PO; -OXYC5CAP28 PO; -PROPOFOL 200 MG/20 ML VIAL As Ordered ONE; -PULMICORT NEB; -REMIPRIL PO; -SIMV40TA2 OR; -SIMV40TA2 PO; -SOMA350T PO; -TIOT18INH INH; -TIZA4TAB OR; -TRAM50TA2 OR; -TRAZ-136 PO; -TRAZ50TA OR; -TRAZADONE PO; +TRIAMCINOLONE ACETONIDE SUSP 40 MG/ML VIAL (J3301) As Ordered; -TRIC145T19 OR; -VENTAER IN; -VITAMIN D50000 UNT OR; -ZYRT10TA2 PO; -[UNRECOGNIZED DRUG - CODE] SL; +diazePAM 5 MG TAB As Ordered; +oxyCODONE 5MG TAB As Ordered
== END ==
LOC: M PAIN 10:15
DX: G89.29 Other chronic pain (principal); M46.1 Sacroiliitis, not elsewhere classified; M53.88 Other specified dorsopathies, sacral and sacrococcygeal region; I10 Essential (primary) hypertension; E11.9 Type 2 diabetes mellitus without complications; E78.5 Hyperlipidemia, unspecified; G43.909 Migraine, unspecified, not intractable, without status migrainosus; K44.9 Diaphragmatic hernia without obstruction or gangrene; K21.9 Gastro-esophageal reflux disease without esophagitis; Z79.01 Long term (current) use of anticoagulants; Z79.82 Long term (current) use of aspirin; Z79.84 Long term (current) use of oral hypoglycemic drugs; Z79.891 Long term (current) use of opiate analgesic; Z79.899 Other long term (current) drug therapy; Z88.8 Allergy status to other drugs, medicaments and biological substances; Z88.5 Allergy status to narcotic agent; Z88.6 Allergy status to analgesic agent; Z91.030 Bee allergy status; Z91.041 Radiographic dye allergy status
CPT/HCPCS: J3301

== ENCOUNTER → 2017-09-04 | Outpatient (CLI) | payer OTHER | LOC: M PAIN 14:00 | DX: M46.1 Sacroiliitis, not elsewhere classified (principal); G62.9 Polyneuropathy, unspecified; M96.1 Postlaminectomy syndrome, not elsewhere classified; I10 Essential (primary) hypertension; E11.9 Type 2 diabetes mellitus without complications; E78.5 Hyperlipidemia, unspecified; G43.909 Migraine, unspecified, not intractable, without status migrainosus; K44.9 Diaphragmatic hernia without obstruction or gangrene; K21.9 Gastro-esophageal reflux disease without esophagitis; F17.210 Nicotine dependence, cigarettes, uncomplicated; Z79.01 Long term (current) use of anticoagulants; Z79.82 Long term (current) use of aspirin; Z79.84 Long term (current) use of oral hypoglycemic drugs; Z79.899 Other long term (current) drug therapy; Z88.6 Allergy status to analgesic agent; Z88.5 Allergy status to narcotic agent; Z88.8 Allergy status to other drugs, medicaments and biological substances; Z91.030 Bee allergy status; Z91.041 Radiographic dye allergy status | CPT/HCPCS: G0463 ==

== ENCOUNTER → 2017-11-14 | Outpatient (CLI) | payer OTHER | LOC: M PAIN 13:30 | DX: M46.1 Sacroiliitis, not elsewhere classified (principal); G62.9 Polyneuropathy, unspecified; I10 Essential (primary) hypertension; E11.9 Type 2 diabetes mellitus without complications; E78.5 Hyperlipidemia, unspecified; K21.9 Gastro-esophageal reflux disease without esophagitis; G43.909 Migraine, unspecified, not intractable, without status migrainosus; K44.9 Diaphragmatic hernia without obstruction or gangrene; F17.210 Nicotine dependence, cigarettes, uncomplicated; Z79.01 Long term (current) use of anticoagulants; Z79.84 Long term (current) use of oral hypoglycemic drugs; Z79.51 Long term (current) use of inhaled steroids; Z79.82 Long term (current) use of aspirin; Z79.899 Other long term (current) drug therapy; Z88.5 Allergy status to narcotic agent; Z88.6 Allergy status to analgesic agent; Z88.8 Allergy status to other drugs, medicaments and biological substances; Z91.041 Radiographic dye allergy status; Z91.030 Bee allergy status; Z86.73 Personal history of transient ischemic attack (TIA), and cerebral infarction without residual deficits; Z91.81 History of falling | CPT/HCPCS: G0463 ==

== ENCOUNTER → 2018-02-02 | Outpatient (CLI) | payer OTHER ==
[~2018-02-02] MED LIST changes: +/ESOM40CA OR; +/TIOT18INH INH; +/WARF2TA OR; +ALBU17IN INH; +ALTA10CA OR; +ALTA1CAP4 PO; +ARTISOL10 OU; +ASPI81TA83 OR; +ASPI81TA85 PO; +BACL10TA2 OR; +BACL10TA2 PO; -BUPIVACAINE HCL 0.25% 30 ML VIAL As Ordered; +CLAR1TAB2 PO; +CLON1TAB OR; +CLON1TAB8 PO; +COMBVENT INFIL; +COUM1TAB14 PO; +COUM6TAB PO; +CYCL10TA PO; +DEPO-PROVERA IM; +DEPRO PROVERA IM; +DULO30CA PO; +EPIP0.3I IM; +EPIP0.3I2 IM; +FLEXERIL PO; +FLON0.05; +FLON1SPR; +FLUCTICASONE; +FOLI1TAB OR; +FOLI1TAB11 PO; +FURO20TA2 OR; +GABA600T3 OR; +HYOMAX PO; -ISOVUE-M 300 61% 15ML VIAL (Q9967) As Ordered; -LIDOCAINE 1% SDV INJ 30 ML VIAL As Ordered; +LINZ290C PO; +LOPR50TA OR; +LYRI75CA PO; +METF-414 PO; +METO1TAB32 PO; +MIRT15TA3 PO; +MUCI600T37 PO; +MUCINEX PO; +NITR0.4S SL; +NITR4TASL SL; +NYSTATIN TOP; +OMEP20TA PO; +OMEP40CA2 PO; +OXYC10TA12 PO; +OXYC15TA76 PO; +OXYC5CAP28 PO; +PULMICORT NEB; +REMIPRIL PO; +SIMV40TA2 OR; +SIMV40TA2 PO; +SOMA350T PO; +TIOT18INH INH; +TIZA4TAB OR; +TRAM50TA2 OR; +TRAZ-163 PO; +TRAZ50TA OR; +TRAZADONE PO; -TRIAMCINOLONE ACETONIDE SUSP 40 MG/ML VIAL (J3301) As Ordered; +TRIC145T19 OR; +VENTAER IN; +VITAMIN D50000 UNT OR; +ZYRT10CA5 PO; +[UNRECOGNIZED DRUG - CODE] SL; -diazePAM 5 MG TAB As Ordered; -oxyCODONE 5MG TAB As Ordered
--- NOTE | 2018-02-28 02:00 | ECWPNPC ---
PATIENT NAME: MIGUEL PICKETT : 1965 GENDER: FEMALE VISIT DATE: 02/02/2018 DISCHARGE DATE: 02/02/18 1527 VISIT LOCKED DATE TIME: PHYSICIAN: AWILDA AMEZQUITA RESOURCE: AWILDA AMEZQUITA REASON FOR APPOINTMENT 1. SW PT,4-6 MONTH FOLLOW UP HISTORY OF PRESENT ILLNESS HISTORY OF PRESENT ILLNESS: HERE FOR F/U OF CHRONIC GENERALIZED BODY PAIN.STATES PAIN IS SEVERE MOST OF THE TIME.RATING PAIN VAS 10/10.FEELS CURRENT MEDICATION IS SOMEWHAT HELPFUL.DENIES SIDE EFFECTS.DISCUSSED MEDICATION AND TEATMENT OPTIONS. PAIN THE PATIENT DESCRIBES THE PAIN... FALL RISK SCREENING: SCREENING :NO FALLS IN THE PAST YEAR CURRENT MEDICATIONS TAKING LORATADINE 10 MG TABLET 1 TABLET ORALLY ONCE A DAY TAKING RANITIDINE HCL 75 MG TABLET 1 TABLET NEEDED ORALLY ONCE A DAY TAKING NICODERM CQ 21 MG/24HR PATCH 24 HOUR 1 PATCH TO SKIN TRANSDERMAL ONCE A DAY TAKING FLUTICASONE PROPIONATE HFA 220 MCG/ACT AEROSOL 1 PUFF INHALATION TWICE A DAY TAKING RAMIPRIL 10 MG CAPSULE 1 CAPSULE ORALLY ONCE A DAY TAKING NITROSTAT 0.4 MG TABLET SUBLINGUAL 1 TAB SUBLINGUALLY DIRECTED TAKING COUMADIN 2 MG TABLET ORALLY 6MG DAILY EXCEPT FOR MONDAY DOSE IS 4 MG TAKING PLAVIX 75 MG TABLET 1 TABLET ORALLY ONCE A DAY TAKING ATORVASTATIN CALCIUM 80 MG TABLET 1 TABLET ORALLY ONCE A DAY TAKING METFORMIN HCL ER 500 MG TABLET EXTENDED RELEASE 24 HOUR 1 TABLET WITH EVENING MEAL ORALLY TWICE A DAY TAKING VENTOLIN HFA 108 (90 BASE) MCG/ACT AEROSOL SOLUTION 2 PUFFS NEEDED INHALATION EVERY 4 HRS TAKING LYRICA 75 MG CAPSULE 1 CAPSULE ORALLY TWICE A DAY TAKING GABAPENTIN 300 MG CAPSULE 2 CAP ORALLY TWICE DAILY TAKING TIZANIDINE HCL 4 MG TABLET 1 TABLET NEEDED ORALLY 2 TABS AT BEDTIME TAKING METHOCARBAMOL 750 MG TABLET 1 TABLET ORALLY THREE TIMES DAILY TAKING PRAMIPEXOLE DIHYDROCHLORIDE 0.5 MG TABLET 1 TABLET BEFORE BEDTIME ORALLY 1 TAB IN AM 1 TAB IN PM, NOTES: (MIRAPEX) TAKING LINZESS 290 MCG CAPSULE 1 CAPSULE ORALLY ONCE A DAY TAKING MIRTAZAPINE 15 MG TABLET 1 TABLET BEFORE BEDTIME IN THE EVENING ORALLY ONCE A DAY TAKING CLONAZEPAM 1 MG TABLET 1 TABLET ORALLY TWICE A DAY TAKING TRAZODONE HCL 150 MG TABLET 1 TABLET AT BEDTIME ORALLY BEFORE BEDTIME TAKING CETIRIZINE HCL 10 MG TABLET 1 TABLET NEEDED ORALLY ONCE A DAY TAKING AZELASTINE-FLUTICASONE 137-50 MCG/ACT SUSPENSION 1 PUFF IN EACH NOSTRIL NASALLY TWICE A DAY TAKING MONTELUKAST SODIUM 10 MG TABLET 1 TABLET IN THE EVENING ORALLY ONCE A DAY TAKING MUCINEX 600 MG TABLET EXTENDED RELEASE 1 TABLET NEEDED ORALLY EVERY 12 HRS TAKING VITAMIN D 86697 UNIT CAPSULE 1 CAPSULE ORALLY WEEKLY TAKING FOLIC ACID 1 MG TABLET 1 TABLET ORALLY ONCE A DAY TAKING EPIPEN 0.3 MG/0.3ML (1:1000) DEVICE 1 PEN INTRAMUSCULAR DAILY NEEDED TAKING DEPO-PROVERA 150 MG/ML SUSPENSION 1 ML INTRAMUSCULAR Q 3 MONTHS TAKING FREESTYLE LANCETS - MISCELLANEOUS 1 LANCET SUBCUTANEOUSLY TWICE A DAY NEEDED BID TAKING FREESTYLE LITE TEST - STRIP DIRECTED IN VITRO BID TAKING FREESTYLE TEST STRIPS 1 STRIP TWICE A DAY NEEDED TAKING OXYCODONE HCL 10 MG TABLET 1 TABLET NEEDED ORALLY EVERY 4 - 6 HRS PRN PAIN MDD=4 TAKING OMEPRAZOLE 40 MG CAPSULE DELAYED RELEASE 1 CAPSULE ORALLY ONCE A DAY NOT-TAKING FLUTICASONE PROPIONATE HFA 44 MCG/ACT AEROSOL 2 PUFFS INHALATION TWICE A DAY, NOTES: DUPLICATE NOT-TAKING RANITIDINE 75 75 MG TABLET ORALLY BID, NOTES: DUPLICATE NOT-TAKING FLONASE 50 MCG/ACT SUSPENSION 1 SPRAY IN EACH NOSTRIL NASALLY ONCE A DAY, NOTES: DUPLICATE MEDICATION LIST REVIEWED AND RECONCILED WITH THE PATIENT PAST MEDICAL HISTORY CAD - FOLLOWED BY [facility]N INTERNAL HEMORRHOIDS T2DM HYPERLIPIDEMIA GERD MIGRAINES HIATAL HERNIA CHRONIC PAIN RESTLESS BODY SYNDROME ARTHRITIS ALLERGIES BEES: ANAPHYLAXIS: ALLERGY ANTI DEPRESANTS: MOOD ALTERATION--MEAN, ANGRY: SIDE EFFECTS ACETAMINOPHEN: N/V: SIDE EFFECTS ASPERTAME: N/V: SIDE EFFECTS HEART CATH DYE: ANAPHYLAXIS: ALLERGY FENTANYL : TASTE CHANGES: SIDE EFFECTS STEROIDS: THRUSH IV DYE: ANAPHYLAXIS: ALLERGY SURGICAL HISTORY LATERAL RELEASE OF RIGHT KNEE LEFT KNEE BACK SURGERY LEFT SHOULDER SINUS SURGERY COLONOSCOPY DR. MARTINEZ. HEMORRHOIDS MODERATE 06/2016 CARDIAC CATH JASON ORDERED BY DR. Esteban ASHLEY, MULTIPLE STENTS, DUE TO UNSTABLE ANGINA 09/12/2017 FAMILY HISTORY FATHER: , PULMONARY FIBROSES MOTHER: , UNKNOWN SIBLINGS: ALIVE SON(S): ALIVE DAUGHTER(S): ALIVE 2 SISTER(S) - HEALTHY. 1 SON(S) , 1 DAUGHTER(S) - HEALTHY. SOCIAL HISTORY GENERAL: TOBACCO USE ARE YOU A:CURRENT SMOKER ARE YOU INTERESTED IN QUITTING?READY TO QUIT TAKING NICOTINE PATCH CURRENTLY. COUNSELED THE PATIENT ON TOBACCO USE, CESSATION [id number]/28/2018 HOW MANY CIGARETTES A DAY DO YOU SMOKE?5 OR LESS CIGARS HOW SOON AFTER YOU WAKE UP DO YOU SMOKE YOUR FIRST CIGARETTE?6-30 MIN HOW OFTEN DO YOU SMOKE CIGARETTES?EVERY DAY PATIENT COUNSELED ON THE DANGERS OF TOBACCO USE AND URGED TO QUIT:02/02/2018 ALCOHOL SCREENING DID YOU HAVE A DRINK CONTAINING ALCOHOL IN THE PAST YEAR?NO POINTS0 INTERPRETATIONNEGATIVE RECREATIONAL DRUG USE DRUG USE?NO CAFFEINE CAFFEINE USE?YES HOW OFTEN AND HOW MUCH? 2 CUPS COFFEE PER DAY SEXUAL HX HAD SEX IN THE LAST 12 MONTHS (VAGINAL, ORAL, OR ANAL)?NO LMP:25 YEARS HAVE YOU EVER HAD AN STD?NO HIV / HEP-C SCREENING HIV TEST OFFERED TO PATIENT:YES DATE OFFERED:05/02/2017 HEP-C TEST OFFERED TO PATIENT:YES DATE OFFERED:05/02/2017 BROCHURE PROVIDED TO PATIENTNO RESTORATIONISM [id number] NONE NO RESTORATIONISM BELIEFS THAT WOULD IMPACT HEALTH CARE. LANGUAGE LANGUAGES SPOKEN:NEW ZEALANDER LEARNING BARRIERS / SPECIAL NEEDS CHANGE FROM LAST VISIT?NO BARRIERS TO LEARNING?YES COMMENTS STATES SHE HAS A 4TH GRADE READING LEVEL HEARING IMPAIRED?NO VISION IMPAIRED?YES COGNITIVELY IMPAIRED?NO :CORRECTIVE LENSES READING GLASSES READINESS TO LEARN?YES LEARNING PREFERENCES?YES :OTHER (PLEASE COMMENT) "LEARNING IT HERSELF OR HEARING IT FROM OTHER PEOPLE" LEARNING CAPABILITIES PRESENT?YES EMOTIONAL BARRIERS?NO SPECIAL DEVICES?YES :[facility] FAMILY MEDICINE CHAIR NEEDED?NO DOMESTIC VIOLENCE DO YOU FEEL SAFE IN YOUR ENVIRONMENT?YES MARITAL STATUS: SINGLE. PAIN CLINIC PFS, CLERGY, PUBLIC HEALTH REFERRALS PFS REFERRAL NEEDED?NO CLERGY REFERRAL NEEDED?NO PUBLIC HEALTH REFERRAL NEEDED?NO WAS THE PROVIDER NOTIFIED OF ANY PERTINENT INFO?NO HAS THE PATIENT BEEN EDUCATED REGARDING HIS/HER PLAN OF CARE?YES HAS THE PATIENT BEEN EDUCATED REGARDING PAIN, THE RISK FOR PAIN, THE IMPORTANCE OF EFFECTIVE PAIN MANAGEMENT, AND THE PAIN ASSESSMENT PROCESS?YES ADVANCE DIRECTIVE ADVANCE DIRECTIVE DISCUSSED WITH PATIENT:YES DECLINED HCP INFORMATION. REVIEWED WITH PATIENT 02/02/18 1448 JS. HOSPITALIZATION/MAJOR DIAGNOSTIC PROCEDURE SURG RELATED REVIEW OF SYSTEMS REVIEWED BY: PROVIDER: AWILDA KIM . CONSTITUTIONAL: ANY CHANGE IN YOUR MEDICAL CONDITION? NO . CHILLS NO . FEVER NO . INFECTION: DO YOU HAVE NEW INFECTIONS? YES, STATES BLADDER INFECTION . DO YOU HAVE HISTORY OF MRSA? NO . MUSCULOSKELETAL: ANY NEW PATTERNS OF PAIN OR NUMBNESS? YES, STATES PAIN GETTING MUCH WORSE AND IS ALL OVER HER BODY . GASTROENTEROLOGY: ANY NEW CHANGE IN BOWEL CONTROL? NO . GENITOURINARY: ANY NEW CHANGE IN BLADDER CONTROL? YES, STATES FREQUENCY AND URGENCY WITH LITTLE URINE OUTPUT . IS THERE A CHANCE YOU COULD BE ? NO . HEMATOLOGY/LYMPH: DO YOU TAKE ANY BLOOD THINNERS? (FOR EXAMPLE- COUMADIN, PLAVIX, AGGRENOX, PLATEL, PRADAXA, OR XARELTO) YES, COUMADIN AND PLAVIX . WHEN WAS YOUR LAST DOSE? DATE: 02/01/18 TIME: 2229 . NEUROLOGY: HAVE YOU FALLEN IN THE PAST 6 MONTHS? YES, STATES FALL IN DECEMBER, RUSHING DOWNSTAIRS AND TRIPPED OVER A VACUUM CORD. STATES SHE HURT BOTH KNEES, WENT TO URGENT CARE, IMAGING TAKEN . ANY NEW EXTREMITY NUMBNESS OR WEAKNESS? YES, STATES NUMBNESS AND WEAKNESS TO ALL EXTREMITIES . CARDIOLOGY: DO YOU HAVE A PACEMAKER OR DEFIBRILLATOR? NO . RESPIRATORY: HAVE YOU BEEN SICK IN THE PAST WEEK? NO . FEVER NO . FLU LIKE SYMPTOMS? NO . COUGH NO . INTEGUMENTARY: DO YOU HAVE ANY RASHES OR OPEN SORES? NO . ALLERGIC/IMMUNO: ARE YOU ALLERGIC TO SHELLFISH OR IV DYE? YES, IV DYE . ANY NEW ALLERGIES? NO . PSYCHIATRIC: DO YOU HAVE THOUGHTS OF HURTING YOURSELF OR SOMEONE ELSE? NO . ARE YOU ABUSED, NEGLECTED, OR IN AN UNSAFE ENVIRONMENT? NO . ENDOCRINOLOGY: ARE YOU DIABETIC? YES . OTHER: DO YOU NEED ANY PRESCRIPTIONS? NO . IF YES, PLEASE LIST: ____ . ANY NEW PROBLEMS WITH YOUR MEDICATIONS? NO . WHEN DID YOU LAST EAT? ____ . WHEN DID YOU LAST DRINK? ____ . WHAT DID YOU LAST DRINK? ____ . NAME OF PERSON DRIVING YOU HOME? ____ . DO YOU HAVE ANY OTHER QUESTIONS OR CONCERNS NO . VITAL SIGNS WT 205.8 LBS, HT 71 IN, BMI 28.70 INDEX, BP 162/78 MM HG, HR 73 /MIN, RR 16 /MIN, TEMP 97.9 F, OXYGEN SAT % 96%, SAFE IN ENV? (Y/N) YES, NA INITIALS MI 14:29, REVIEWED BY: GERTRUDE. EXAMINATION GENERAL EXAMINATION: PSYCHALERT , ORIENTED X 3 , APPROPRIATE MOOD AND AFFECT . LUNGS:CLEAR TO AUSCULTATION BILATERALLY . HEART:HEART RATE REGULAR . ABDOMEN:DISTENDED, BOWEL SOUNDS QUIET. AABDOMEN TENDER IN BILATERAL LOWER QUADS. . MUSCULOSKELETAL:TRIGGER POINTS AND TIGHT FIBROUS BANDS IDENTIFIED OVER TRAPEZIUS MUSCLES AND ACROSS THE LUMBOSACRAL MUSCLES. GAIT WIDEBASED, SLOW, ANTALGIC. . EXTREMITIES:TRACE EDEMA BILATERAL LOWER EXTREMITIES . JOINTS:LEFT , SHOULDER , PAIN , WITH RANGE OF MOTION . ASSESSMENTS LUMBAR POST-LAMINECTOMY SYNDROME - M96.1 (PRIMARY), FOLLOWED BY THE PAIN CENTER SACROILIITIS - M46.1 CHRONIC PRESCRIPTION OPIATE USE - Z79.899 TREATMENT LUMBAR POST-LAMINECTOMY SYNDROME CONTINUE LYRICA CAPSULE, 75 MG, 1 CAPSULE, ORALLY, TWICE A DAY REFILL GABAPENTIN CAPSULE, 300 MG, 2 CAP, ORALLY, TWICE DAILY, 30 DAY(S), 120, REFILLS 5 STOP TIZANIDINE HCL TABLET, 4 MG, 1 TABLET NEEDED, ORALLY, 2 TABS AT BEDTIME REFILL METHOCARBAMOL TABLET, 750 MG, 1 TABLET, ORALLY, THREE TIMES DAILY, 30 DAY(S), 90, REFILLS 2 REFILL PRAMIPEXOLE DIHYDROCHLORIDE TABLET, 0.5 MG, 1 TABLET BEFORE BEDTIME, ORALLY, 1 TAB IN AM 1 TAB IN PM, 30 DAY(S), 90, REFILLS 2, NOTES: (MIRAPEX) REFILL OXYCODONE HCL TABLET, 10 MG, 1 TABLET NEEDED, ORALLY, EVERY 4 - 6 HRS PRN PAIN MDD=4, 30 DAY(S), 120, REFILLS 0 NOTES: ISTOP REGISTRY REVIEWED AND DEMONSTRATES COMPLLIANCE. (REF #[id number] ) BRINGS IN MEDICATIONS WHICH IS APPROPRIATE FOR WHAT WAS DISPENSED. RECENT URINE TOXICOLOGY REVIEWED. NO UNAUTHORIZED MEDICATIONS. NO ILLICIT SUBSTANCES AND PRESCRIBED MEDICATIONS WERE PRESENT. , RISKS AND BENEFITS OF NARCOTIC/OPIOD MEDICATIONS WERE REVIEWED WITH PATIENT - THIS INCLUDES BUT IS NOT LIMITED TO RISK OF DEPENDANCE/DEVELOPMENT OF ADDICTION, MOOD DISTURBANCE AND DEPRESSION, OSTEOPOROSIS, HORMONAL AND LABIDAL CHANGES, RESPIRATORY DEPRESSION AND . PATIENT IS ADVISED NOT TO DRIVE OR DRINK ALCOHOL WHILE ON THESE MEDICATIONS. PROCEDURE CODES FA211 ESTABILISHED PATIENT [facility] CHARGE DISPOSITION & COMMUNICATION FOLLOW UP 4 WEEKS ELECTRONICALLY SIGNED BY JULIO HATFIELD ON 02/26/2018 AT 03:36 PM EST DISCLAIMER : THIS IS A VISIT SUMMARY EXTRACTED FROM THE [employer] CHART. IT IS NOT A COPY OF THE [employer] PROGRESS NOTE. JHON
== END ==
LOC: M PAIN 14:30
PROVIDERS: ATTEND Nurse Practitioner Family
DX: M96.1 Postlaminectomy syndrome, not elsewhere classified (principal); M46.1 Sacroiliitis, not elsewhere classified; I20.9 Angina pectoris, unspecified; I10 Essential (primary) hypertension; E11.9 Type 2 diabetes mellitus without complications; K21.9 Gastro-esophageal reflux disease without esophagitis; G43.909 Migraine, unspecified, not intractable, without status migrainosus; K44.9 Diaphragmatic hernia without obstruction or gangrene; M19.90 Unspecified osteoarthritis, unspecified site; F17.210 Nicotine dependence, cigarettes, uncomplicated; Z79.01 Long term (current) use of anticoagulants; Z79.84 Long term (current) use of oral hypoglycemic drugs; Z79.891 Long term (current) use of opiate analgesic; Z79.899 Other long term (current) drug therapy; Z88.5 Allergy status to narcotic agent; Z88.6 Allergy status to analgesic agent; Z88.8 Allergy status to other drugs, medicaments and biological substances; Z91.041 Radiographic dye allergy status; Z91.030 Bee allergy status; Z86.79 Personal history of other diseases of the circulatory system

== ENCOUNTER → 2018-03-05 | Outpatient (CLI) | payer OTHER | LOC: M PAIN 15:15 | PROVIDERS: ATTEND Nurse Practitioner Family | DX: Z00.00 Encounter for general adult medical examination without abnormal findings (principal) ==

== ENCOUNTER → 2018-05-03 | Outpatient (CLI) | payer OTHER ==
[~2018-05-03] MED LIST changes: -/ESOM40CA OR; -/TIOT18INH INH; -/WARF2TA OR; +COUM1TAB16 OR; -DULO30CA PO; +DULO30CA9 PO; +NEXI1CAP3 OR; +SPIR1CAP INH
--- NOTE | 2018-05-16 02:02 | ECWPNPC ---
PATIENT NAME: MIGUEL PICKETT : 1965 GENDER: FEMALE VISIT DATE: 05/03/2018 DISCHARGE DATE: 05/03/18 1457 VISIT LOCKED DATE TIME: PHYSICIAN: AWILDA AMEZQUITA RESOURCE: AWILDA AMEZQUITA REASON FOR APPOINTMENT 1. 3 MONTHS HISTORY OF PRESENT ILLNESS HISTORY OF PRESENT ILLNESS: HERE FOR F/U OF CHRONIC GENERALIZED BODY PAIN.RATING PAIN VAS 10+/10 VAS.HAS BEEN HAVING SEVERE PAIN THAT IS NOT ALLOWING HER TO SLEEP MORE THAN 4 HOURS AT NIGHT.HAVING SEVERE PAIN IN FEET THAT IS BURNING AND STABBING.REPORTS SEVERE PAIN WALKING UP STAIRS.REPORTS RETURN OF MIGRAINES AND FREQUENT FALLING. PAIN THE PATIENT DESCRIBES THE PAIN... FALL RISK SCREENING: SCREENING :NO FALLS REPORTED IN THE LAST YEAR CURRENT MEDICATIONS TAKING DEPO-PROVERA 150 MG/ML SUSPENSION 1 ML INTRAMUSCULAR Q 3 MONTHS TAKING PRAMIPEXOLE DIHYDROCHLORIDE 0.5 MG TABLET 1 TABLET BEFORE BEDTIME ORALLY 1 TAB IN AM 1 TAB IN PM, NOTES: (MIRAPEX) TAKING FREESTYLE LITE TEST - STRIP DIRECTED IN VITRO BID TAKING FREESTYLE LANCETS - MISCELLANEOUS 1 LANCET SUBCUTANEOUSLY TWICE A DAY NEEDED BID TAKING MIRTAZAPINE 15 MG TABLET 1 TABLET BEFORE BEDTIME IN THE EVENING ORALLY ONCE A DAY TAKING TRAZODONE HCL 150 MG TABLET 1 TABLET AT BEDTIME ORALLY BEFORE BEDTIME TAKING CLONAZEPAM 1 MG TABLET 1 TABLET ORALLY TWICE A DAY TAKING MUCINEX 600 MG TABLET EXTENDED RELEASE 1 TABLET NEEDED ORALLY EVERY 12 HRS TAKING CETIRIZINE HCL 10 MG TABLET 1 TABLET NEEDED ORALLY ONCE A DAY TAKING RAMIPRIL 10 MG CAPSULE 1 CAPSULE ORALLY ONCE A DAY TAKING METFORMIN HCL ER 500 MG TABLET EXTENDED RELEASE 24 HOUR 1 TABLET WITH EVENING MEAL ORALLY TWICE A DAY TAKING OXYCODONE HCL 10 MG TABLET 1 TABLET NEEDED ORALLY EVERY 4 - 6 HRS PRN PAIN MDD=4 TAKING COUMADIN 2 MG TABLET ORALLY 6MG DAILY EXCEPT FOR MONDAY DOSE IS 4 MG TAKING LYRICA 75 MG CAPSULE 1 CAPSULE ORALLY TWICE A DAY TAKING GABAPENTIN 300 MG CAPSULE 2 CAP ORALLY TWICE DAILY TAKING LORATADINE 10 MG TABLET 1 TABLET ORALLY ONCE A DAY TAKING RANITIDINE HCL 75 MG TABLET 1 TABLET NEEDED ORALLY ONCE A DAY TAKING NICODERM CQ 21 MG/24HR PATCH 24 HOUR 1 PATCH TO SKIN TRANSDERMAL ONCE A DAY TAKING FLUTICASONE PROPIONATE HFA 220 MCG/ACT AEROSOL 1 PUFF INHALATION TWICE A DAY TAKING NITROSTAT 0.4 MG TABLET SUBLINGUAL 1 TAB SUBLINGUALLY DIRECTED TAKING PLAVIX 75 MG TABLET 1 TABLET ORALLY ONCE A DAY TAKING ATORVASTATIN CALCIUM 80 MG TABLET 1 TABLET ORALLY ONCE A DAY TAKING LINZESS 290 MCG CAPSULE 1 CAPSULE ORALLY ONCE A DAY TAKING AZELASTINE-FLUTICASONE 137-50 MCG/ACT SUSPENSION 1 PUFF IN EACH NOSTRIL NASALLY TWICE A DAY TAKING MONTELUKAST SODIUM 10 MG TABLET 1 TABLET IN THE EVENING ORALLY ONCE A DAY TAKING VITAMIN D 56920 UNIT CAPSULE 1 CAPSULE ORALLY WEEKLY TAKING FOLIC ACID 1 MG TABLET 1 TABLET ORALLY ONCE A DAY TAKING EPIPEN 0.3 MG/0.3ML (1:1000) DEVICE 1 PEN INTRAMUSCULAR DAILY NEEDED TAKING FREESTYLE TEST STRIPS 1 STRIP TWICE A DAY NEEDED TAKING OMEPRAZOLE 40 MG CAPSULE DELAYED RELEASE 1 CAPSULE ORALLY ONCE A DAY TAKING METHOCARBAMOL 750 MG TABLET 1 TABLET ORALLY THREE TIMES DAILY NOT-TAKING VENTOLIN HFA 108 (90 BASE) MCG/ACT AEROSOL SOLUTION 2 PUFFS NEEDED INHALATION EVERY 4 HRS MEDICATION LIST REVIEWED AND RECONCILED WITH THE PATIENT PAST MEDICAL HISTORY CAD - FOLLOWED BY [facility] INTERNAL HEMORRHOIDS T2DM HYPERLIPIDEMIA GERD MIGRAINES HIATAL HERNIA CHRONIC PAIN RESTLESS BODY SYNDROME ARTHRITIS ALLERGIES BEES: ANAPHYLAXIS - ALLERGY ANTI DEPRESANTS: MOOD ALTERATION--MEAN, ANGRY - SIDE EFFECTS ACETAMINOPHEN: N/V - SIDE EFFECTS ASPERTAME: N/V - SIDE EFFECTS HEART CATH DYE: ANAPHYLAXIS - ALLERGY FENTANYL : TASTE CHANGES - SIDE EFFECTS STEROIDS: THRUSH IV DYE: ANAPHYLAXIS - ALLERGY SURGICAL HISTORY LATERAL RELEASE OF RIGHT KNEE LEFT KNEE BACK SURGERY LEFT SHOULDER SINUS SURGERY COLONOSCOPY DR. MARTINEZ. HEMORRHOIDS MODERATE 06/2016 CARDIAC CATH [facility] ORDERED BY DR. Esteban ASHLEY, MULTIPLE STENTS, DUE TO UNSTABLE ANGINA 09/12/2017 FAMILY HISTORY FATHER: , PULMONARY FIBROSES MOTHER: , UNKNOWN SIBLINGS: ALIVE SON(S): ALIVE DAUGHTER(S): ALIVE 2 SISTER(S) - HEALTHY. 1 SON(S) , 1 DAUGHTER(S) - HEALTHY. SOCIAL HISTORY GENERAL: TOBACCO USE ARE YOU A:CURRENT SMOKER ARE YOU INTERESTED IN QUITTING?READY TO QUIT TAKING NICOTINE PATCH AND NICOTROL INHALER COUNSELED THE PATIENT ON TOBACCO USE, CESSATION [id number]/28/2018 HOW MANY CIGARETTES A DAY DO YOU SMOKE?5 OR LESS CIGARS HOW SOON AFTER YOU WAKE UP DO YOU SMOKE YOUR FIRST CIGARETTE?6-30 MIN HOW OFTEN DO YOU SMOKE CIGARETTES?EVERY DAY PATIENT COUNSELED ON THE DANGERS OF TOBACCO USE AND URGED TO QUIT:05/03/2018 LATEX QUESTIONNAIRE LATEX ALLERGY : HAVE YOU EVER DEVELOPED ANY TYPE OF REACTION AFTER HANDLING LATEX PRODUCTS SUCH RUBBER GLOVES, CONDOMS, DIAPHRAGMS, BALLOONS, SOCKS, OR UNDERWEAR?NO LATEX ALLERGY : HAVE YOU EVER DEVELOPED ANY TYPE OF REACTION DURING OR AFTER DENTAL APPOINTMENT, VAGINAL/RECTAL EXAMINATION, SURGICAL PROCEDURE, OR ANY OTHER EXPOSURE?NO LATEX RISK : HAVE YOU EVER HAD ANY DIFFICULTY BREATHING OR HIVES AFTER EATING OR HANDLING ANY FRUITS, OR VEGETABLES; SUCH KIWI, BANANAS, STONE FRUITS, OR CHESTNUTSNO LATEX RISK : DO YOU HAVE A PREVIOUS PERSONAL HISTORY OF MORE THAN NINE SURGERIES, SPINA BIFIDA, OR REPEATED CATHERTIZATIONS? NO LATEX RISK : ARE YOU FREQUENTLY EXPOSED TO LATEX PRODUCTS IN YOUR OCCUPATION?NO DATE ASKED : 05/03/2018 ALCOHOL SCREENING DID YOU HAVE A DRINK CONTAINING ALCOHOL IN THE PAST YEAR?NO POINTS0 INTERPRETATIONNEGATIVE RECREATIONAL DRUG USE DRUG USE?NO CAFFEINE CAFFEINE USE?YES HOW OFTEN AND HOW MUCH? 2 CUPS COFFEE PER DAY SEXUAL HX HAD SEX IN THE LAST 12 MONTHS (VAGINAL, ORAL, OR ANAL)?NO LMP:25 YEARS HAVE YOU EVER HAD AN STD?NO HIV / HEP-C SCREENING HIV TEST OFFERED TO PATIENT:YES DATE OFFERED:05/02/2017 HEP-C TEST OFFERED TO PATIENT:YES DATE OFFERED:05/02/2017 BROCHURE PROVIDED TO PATIENTNO MU-ISM [id number] NONE NO ORTHODOXY BELIEFS THAT WOULD IMPACT HEALTH CARE. 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 PAIN CLINIC PFS, CLERGY, PUBLIC HEALTH REFERRALS PFS REFERRAL NEEDED?NO CLERGY REFERRAL NEEDED?NO PUBLIC HEALTH REFERRAL NEEDED?NO WAS THE PROVIDER NOTIFIED OF ANY PERTINENT INFO?YES HAS THE PATIENT BEEN EDUCATED REGARDING HIS/HER PLAN OF CARE?YES HAS THE PATIENT BEEN EDUCATED REGARDING PAIN, THE RISK FOR PAIN, THE IMPORTANCE OF EFFECTIVE PAIN MANAGEMENT, AND THE PAIN ASSESSMENT PROCESS?YES ADVANCE DIRECTIVE ADVANCE DIRECTIVE DISCUSSED WITH PATIENT:YES DECLINED HCP INFORMATION. REVIEWED WITH PATIENT 02/02/18 1144 JS. HOSPITALIZATION/MAJOR DIAGNOSTIC PROCEDURE SURG RELATED REVIEW OF SYSTEMS REVIEWED BY: PROVIDER: AWILDA KIM . CONSTITUTIONAL: ANY CHANGE IN YOUR MEDICAL CONDITION? NO . CHILLS NO . FEVER NO . INFECTION: DO YOU HAVE NEW INFECTIONS? NO . DO YOU HAVE HISTORY OF MRSA? NO . MUSCULOSKELETAL: ANY NEW PATTERNS OF PAIN OR NUMBNESS? PAIN AND RESTLESS FEELING HAS INTENSIFIED . GASTROENTEROLOGY: ANY NEW CHANGE IN BOWEL CONTROL? NO . GENITOURINARY: ANY NEW CHANGE IN BLADDER CONTROL? NO . IS THERE A CHANCE YOU COULD BE ? NO . HEMATOLOGY/LYMPH: DO YOU TAKE ANY BLOOD THINNERS? (FOR EXAMPLE- COUMADIN, PLAVIX, AGGRENOX, PLATEL, PRADAXA, OR XARELTO) COUMADIN AND PLAVIX . WHEN WAS YOUR LAST DOSE? DATE: TIME: . NEUROLOGY: HAVE YOU FALLEN IN THE PAST 12 MONTHS? YES, PT STATES THAT SHE FELL WHILE AT HOME, SCUFFED UP KNEE, PT REPORTED TO URGENT CARE FOR XRAY, NO FRACTUIRE. DS . ANY NEW EXTREMITY NUMBNESS OR WEAKNESS? NO . CARDIOLOGY: DO YOU HAVE A PACEMAKER OR DEFIBRILLATOR? NO . RESPIRATORY: HAVE YOU BEEN SICK IN THE PAST WEEK? YES, FEVER, COUGH. RESOLVED 1 WEEK AGO . FEVER NO . FLU LIKE SYMPTOMS? NO . COUGH NO . INTEGUMENTARY: DO YOU HAVE ANY RASHES OR OPEN SORES? NO . ALLERGIC/IMMUNO: ARE YOU ALLERGIC TO IV DYE? NO . ANY NEW ALLERGIES? NO . PSYCHIATRIC: DO YOU HAVE THOUGHTS OF HURTING YOURSELF OR SOMEONE ELSE? NO . ARE YOU ABUSED, NEGLECTED, OR IN AN UNSAFE ENVIRONMENT? NO . ENDOCRINOLOGY: ARE YOU DIABETIC? YES, 97 FSBS TODAY . OTHER: DO YOU NEED ANY PRESCRIPTIONS? GABAPENTIN . IF YES, PLEASE LIST: ____ . ANY NEW PROBLEMS WITH YOUR MEDICATIONS? NO . WHEN DID YOU LAST EAT? ____ . WHEN DID YOU LAST DRINK? ____ . WHAT DID YOU LAST DRINK? ____ . NAME OF PERSON DRIVING YOU HOME? ____ . DO YOU HAVE ANY OTHER QUESTIONS OR CONCERNS NO . VITAL SIGNS WT 211 LBS, HT 71 IN, BMI 29.43 INDEX, BP 137/96 MM HG, HR 90 /MIN, RR 16 /MIN, TEMP 98.1 F, OXYGEN SAT % 95%, NA INITIALS AW 1357. EXAMINATION GENERAL EXAMINATION: GENERAL APPEARANCE: AWAKE,ALERT ,PLEAASANT . PSYCH AFFECT NORMAL . LUNGS: LUNG SALDANA ARE CLEAR TO AUSCULTATION BILATERALLY. GOOD MOVEMENT OF AIR . HEART: S1, S2 IN A REGULAR RATE AND RHYTHM. NO SIGNIFICANT MURMURS, RUBS OR GALLOPS NOTED . MUSCULOSKELETAL: 2/5 MST LOWER EXTREMITIES. CERVICAL TRIGGER POINTS: RIGHT RHOMBOID .PAIN IS AGGREVATED WITH ROJM RIGHT ARM. NEUROLOGIC EXAM: CN'S II-XII GROSSLY INTACT POSITIVE ROMBERG. 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 BRINGS IN MEDICATIONS WHICH IS APPROPRIATE FOR WHAT WAS DISPENSED. RECENT URINE TOXICOLOGY REVIEWED. NO UNAUTHORIZED MEDICATIONS. NO ILLICIT SUBSTANCES AND PRESCRIBED MEDICATIONS WERE PRESENT. , RISKS AND BENEFITS OF NARCOTIC/OPIOD MEDICATIONS WERE REVIEWED WITH PATIENT - THIS INCLUDES BUT IS NOT LIMITED TO RISK OF DEPENDANCE/DEVELOPMENT OF ADDICTION, MOOD DISTURBANCE AND DEPRESSION, OSTEOPOROSIS, HORMONAL AND LABIDAL CHANGES, RESPIRATORY DEPRESSION AND . PATIENT IS ADVISED NOT TO DRIVE OR DRINK ALCOHOL WHILE ON THESE MEDICATIONS. [facility]:LOWER EXTREMITY WEAKNESS,FREQUENT FALLING PROCEDURE CODES FA211 ESTABILISHED PATIENT [facility] F[facility] CHARGE DISPOSITION & COMMUNICATION FOLLOW UP POST (REASON: TPI RIGHT RHOMBOID) ELECTRONICALLY SIGNED BY JULIO HATFIELD ON 05/14/2018 AT 02:40 PM EDT DISCLAIMER : THIS IS A VISIT SUMMARY EXTRACTED FROM THE [employer]. CHART. IT IS NOT A COPY OF THE [employer]. PROGRESS NOTE. JHON
== END ==
LOC: M PAIN 13:45
PROVIDERS: ATTEND Nurse Practitioner Family
DX: G89.29 Other chronic pain (principal); M79.18 Myalgia, other site; G62.9 Polyneuropathy, unspecified; M96.1 Postlaminectomy syndrome, not elsewhere classified; I25.10 Atherosclerotic heart disease of native coronary artery without angina pectoris; I10 Essential (primary) hypertension; K64.8 Other hemorrhoids; E11.9 Type 2 diabetes mellitus without complications; E78.5 Hyperlipidemia, unspecified; K21.9 Gastro-esophageal reflux disease without esophagitis; G43.909 Migraine, unspecified, not intractable, without status migrainosus; K44.9 Diaphragmatic hernia without obstruction or gangrene; R45.1 Restlessness and agitation; F17.210 Nicotine dependence, cigarettes, uncomplicated; Z79.01 Long term (current) use of anticoagulants; Z79.02 Long term (current) use of antithrombotics/antiplatelets; Z79.891 Long term (current) use of opiate analgesic; Z79.84 Long term (current) use of oral hypoglycemic drugs; Z79.899 Other long term (current) drug therapy; Z95.5 Presence of coronary angioplasty implant and graft; Z91.030 Bee allergy status; Z88.8 Allergy status to other drugs, medicaments and biological substances; Z91.041 Radiographic dye allergy status; Z88.6 Allergy status to analgesic agent; Z88.5 Allergy status to narcotic agent

== ENCOUNTER → 2018-07-31 | Outpatient (CLI) | payer OTHER ==
--- NOTE | 2018-08-15 02:10 | ECWPNPC ---
PATIENT NAME: MIGUEL PICKETT : 1965 GENDER: FEMALE VISIT DATE: 07/31/2018 DISCHARGE DATE: 07/31/18 1617 VISIT LOCKED DATE TIME: PHYSICIAN: AWILDA AMEZQUITA RESOURCE: AWILDA AMEZQUITA HISTORY OF PRESENT ILLNESS HISTORY OF PRESENT ILLNESS: HERE FOR F/U OF CHRONIC GENERALIZED BODY PAIN.RATING PAIN VAS 10+/10 VAS.HAS BEEN HAVING SEVERE PAIN THAT IS NOT ALLOWING HER TO SLEEP MORE THAN 4 HOURS AT NIGHT.HAVING SEVERE PAIN IN FEET THAT IS BURNING AND STABBING.REPORTING LEFT ARM SPASMS AND SHARP SHOOTING PAIN.CONTINUES WITH SWELLING IN BILAT.LEGS R>L.STATES PRIMARY CARE AWARE. PAIN THE PATIENT DESCRIBES THE PAIN... THE PATIENT DESCRIBES THE PAIN... FALL RISK SCREENING: SCREENING :NO FALLS REPORTED IN THE LAST YEAR CURRENT MEDICATIONS TAKING RAMIPRIL 10 MG CAPSULE 1 CAPSULE ORALLY ONCE A DAY TAKING COUMADIN 2 MG TABLET ORALLY 6MG DAILY EXCEPT FOR MONDAY DOSE IS 4 MG TAKING PLAVIX 75 MG TABLET 1 TABLET ORALLY ONCE A DAY TAKING NITROSTAT 0.4 MG TABLET SUBLINGUAL 1 TAB SUBLINGUALLY DIRECTED TAKING FOLIC ACID 1 MG TABLET 1 TABLET ORALLY ONCE A DAY TAKING ATORVASTATIN CALCIUM 80 MG TABLET 1 TABLET ORALLY ONCE A DAY TAKING METFORMIN HCL ER 500 MG TABLET EXTENDED RELEASE 24 HOUR 1 TABLET WITH EVENING MEAL ORALLY TWICE A DAY TAKING FLOVENT HFA 44 MCG/ACT AEROSOL INHALE TWO PUFFS BY MOUTH TWICE A DAY TAKING FLUTICASONE PROPIONATE HFA 220 MCG/ACT AEROSOL 1 PUFF INHALATION TWICE A DAY TAKING MONTELUKAST SODIUM 10 MG TABLET 1 TABLET IN THE EVENING ORALLY ONCE A DAY TAKING CLONAZEPAM 1 MG TABLET 1 TABLET ORALLY TWICE A DAY TAKING MIRTAZAPINE 15 MG TABLET 1 TABLET BEFORE BEDTIME IN THE EVENING ORALLY ONCE A DAY TAKING TRAZODONE HCL 150 MG TABLET 1 TABLET AT BEDTIME ORALLY BEFORE BEDTIME TAKING AMITRIPTYLINE HCL 25 MG TABLET DIRECTED ORALLY BEFORE BEDTIME TAKING OXYCODONE HCL 10 MG TABLET 1 TABLET NEEDED ORALLY EVERY 4 - 6 HRS PRN PAIN MDD=4 TAKING LYRICA 75 MG CAPSULE 1 CAPSULE ORALLY TWICE A DAY TAKING GABAPENTIN 300 MG CAPSULE 2 CAP ORALLY TWICE DAILY TAKING METHOCARBAMOL 750 MG TABLET 1 TABLET ORALLY THREE TIMES DAILY TAKING PRAMIPEXOLE DIHYDROCHLORIDE 0.5 MG TABLET 1 TABLET BEFORE BEDTIME ORALLY 1 TAB IN AM 1 TAB IN PM, NOTES: (MIRAPEX) TAKING LINZESS 290 MCG CAPSULE 1 CAPSULE ORALLY ONCE A DAY TAKING OMEPRAZOLE 40 MG CAPSULE DELAYED RELEASE 1 CAPSULE ORALLY TWICE A DAY TAKING RANITIDINE HCL 75 MG TABLET 1 TABLET NEEDED ORALLY ONCE A DAY TAKING DEPO-PROVERA 150 MG/ML SUSPENSION 1 ML INTRAMUSCULAR Q 3 MONTHS TAKING MUCINEX 600 MG TABLET EXTENDED RELEASE 1 TABLET NEEDED ORALLY EVERY 12 HRS TAKING LORATADINE 10 MG TABLET 1 TABLET ORALLY ONCE A DAY TAKING CETIRIZINE HCL 10 MG TABLET 1 TABLET NEEDED ORALLY ONCE A DAY TAKING FLONASE 50 MCG/ACT SUSPENSION 1 SPRAY IN EACH NOSTRIL NASALLY ONCE A DAY TAKING AZELASTINE-FLUTICASONE 137-50 MCG/ACT SUSPENSION 1 PUFF IN EACH NOSTRIL NASALLY TWICE A DAY TAKING VITAMIN D 85777 UNIT CAPSULE 1 CAPSULE ORALLY WEEKLY TAKING EPIPEN 0.3 MG/0.3ML (1:1000) DEVICE 1 PEN INTRAMUSCULAR DAILY NEEDED TAKING NICODERM CQ 21 MG/24HR PATCH 24 HOUR 1 PATCH TO SKIN TRANSDERMAL ONCE A DAY TAKING FREESTYLE TEST STRIPS 1 STRIP TWICE A DAY NEEDED TAKING FREESTYLE LANCETS - MISCELLANEOUS 1 LANCET SUBCUTANEOUSLY TWICE A DAY NEEDED BID TAKING FREESTYLE LITE TEST - STRIP DIRECTED IN VITRO BID TAKING FLUCONAZOLE 100 MG TABLET 2 TABS ON DAY 1 ,THEN 1 TAB DAILY ON DAYS 2-10 ORALLY ONCE A DAY TAKING CYMBALTA 30 MG CAPSULE DELAYED RELEASE PARTICLES 1 CAPSULE ORALLY ONCE A DAY MEDICATION LIST REVIEWED AND RECONCILED WITH THE PATIENT PAST MEDICAL HISTORY CAD - FOLLOWED BY [facility] INTERNAL HEMORRHOIDS T2DM HYPERLIPIDEMIA GERD MIGRAINES HIATAL HERNIA CHRONIC PAIN RESTLESS BODY SYNDROME ARTHRITIS COLONOSCOPY 2017 WITH ALLERGIES BEES: ANAPHYLAXIS - ALLERGY ANTI DEPRESANTS: MOOD ALTERATION--MEAN, ANGRY - SIDE EFFECTS ACETAMINOPHEN: N/V - SIDE EFFECTS ASPERTAME: N/V - SIDE EFFECTS HEART CATH DYE: ANAPHYLAXIS - ALLERGY FENTANYL : TASTE CHANGES - SIDE EFFECTS STEROIDS: THRUSH IV DYE: ANAPHYLAXIS - ALLERGY SURGICAL HISTORY LATERAL RELEASE OF RIGHT KNEE LEFT KNEE BACK SURGERY LEFT SHOULDER SINUS SURGERY COLONOSCOPY DR. MARTINEZ. HEMORRHOIDS MODERATE 06/2016 CARDIAC CATH [facility] ORDERED BY DR. Esteban ASHLEY, MULTIPLE STENTS, DUE TO UNSTABLE ANGINA 09/12/2017 FAMILY HISTORY FATHER: , PULMONARY FIBROSES MOTHER: , UNKNOWN, DIAGNOSED WITH DIABETES SIBLINGS: ALIVE SON(S): ALIVE DAUGHTER(S): ALIVE 2 SISTER(S) - HEALTHY. 1 SON(S) , 1 DAUGHTER(S) - HEALTHY. SOCIAL HISTORY GENERAL: TOBACCO USE ARE YOU A:CURRENT SMOKER HOW OFTEN DO YOU SMOKE CIGARETTES?EVERY DAY HOW SOON AFTER YOU WAKE UP DO YOU SMOKE YOUR FIRST CIGARETTE?6-30 MIN HOW MANY CIGARETTES A DAY DO YOU SMOKE?5 OR LESS CIGARS ARE YOU INTERESTED IN QUITTING?READY TO QUIT TAKING NICOTINE PATCH AND NICOTROL INHALER PATIENT COUNSELED ON THE DANGERS OF TOBACCO USE AND URGED TO QUIT:05/03/2018 COUNSELED THE PATIENT ON TOBACCO USE, CESSATION [id number]/28/2018 HIV / HEP-C SCREENING HIV TEST OFFERED TO PATIENT:YES DATE OFFERED:05/02/2017 HEP-C TEST OFFERED TO PATIENT:YES DATE OFFERED:05/02/2017 BROCHURE PROVIDED TO PATIENTNO LANGUAGE LANGUAGES SPOKEN:DJIBOUTIAN DOMESTIC VIOLENCE DO YOU FEEL SAFE IN YOUR ENVIRONMENT?YES RECREATIONAL DRUG USE DRUG USE?NO LEARNING BARRIERS / SPECIAL NEEDS CHANGE FROM LAST VISIT?NO BARRIERS TO LEARNING?YES COMMENTS STATES SHE HAS A 4TH GRADE READING LEVEL HEARING IMPAIRED?NO VISION IMPAIRED?YES COGNITIVELY IMPAIRED?NO :CORRECTIVE LENSES READING GLASSES READINESS TO LEARN?YES LEARNING PREFERENCES?YES :OTHER (PLEASE COMMENT) "LEARNING IT HERSELF OR HEARING IT FROM OTHER PEOPLE" LEARNING CAPABILITIES PRESENT?YES EMOTIONAL BARRIERS?NO SPECIAL DEVICES?YES :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 PAIN CLINIC PFS, CLERGY, PUBLIC HEALTH REFERRALS PFS REFERRAL NEEDED?NO CLERGY REFERRAL NEEDED?NO PUBLIC HEALTH REFERRAL NEEDED?NO WAS THE PROVIDER NOTIFIED OF ANY PERTINENT INFO?YES HAS THE PATIENT BEEN EDUCATED REGARDING HIS/HER PLAN OF CARE?YES HAS THE PATIENT BEEN EDUCATED REGARDING PAIN, THE RISK FOR PAIN, THE IMPORTANCE OF EFFECTIVE PAIN MANAGEMENT, AND THE PAIN ASSESSMENT PROCESS?YES LATEX QUESTIONNAIRE LATEX ALLERGY : HAVE YOU EVER DEVELOPED ANY TYPE OF REACTION AFTER HANDLING LATEX PRODUCTS SUCH RUBBER GLOVES, CONDOMS, DIAPHRAGMS, BALLOONS, SOCKS, OR UNDERWEAR?NO LATEX ALLERGY : HAVE YOU EVER DEVELOPED ANY TYPE OF REACTION DURING OR AFTER DENTAL APPOINTMENT, VAGINAL/RECTAL EXAMINATION, SURGICAL PROCEDURE, OR ANY OTHER EXPOSURE?NO DATE ASKED : 05/03/2018 LATEX RISK : HAVE YOU EVER HAD ANY DIFFICULTY BREATHING OR HIVES AFTER EATING OR HANDLING ANY FRUITS, OR VEGETABLES; SUCH KIWI, BANANAS, STONE FRUITS, OR CHESTNUTSNO LATEX RISK : DO YOU HAVE A PREVIOUS PERSONAL HISTORY OF MORE THAN NINE SURGERIES, SPINA BIFIDA, OR REPEATED CATHERTIZATIONS? NO LATEX RISK : ARE YOU FREQUENTLY EXPOSED TO LATEX PRODUCTS IN YOUR OCCUPATION?NO CAFFEINE CAFFEINE USE?YES HOW OFTEN AND HOW MUCH? 2 CUPS COFFEE PER DAY ADVANCE DIRECTIVE ADVANCE DIRECTIVE DISCUSSED WITH PATIENT:YES DECLINED HCP INFORMATION AND ASSISTANCE AT THIS TIME 07/31/18 EPISCOPALIAN [id number] NONE NO LATTER DAY BELIEFS THAT WOULD IMPACT HEALTH CARE. MARITAL STATUS: SINGLE. ALCOHOL SCREENING DID YOU HAVE A DRINK CONTAINING ALCOHOL IN THE PAST YEAR?NO POINTS0 INTERPRETATIONNEGATIVE SEXUAL HX HAD SEX IN THE LAST 12 MONTHS (VAGINAL, ORAL, OR ANAL)?NO LMP:25 YEARS HAVE YOU EVER HAD AN STD?NO REVIEWED WITH PATIENT 02/02/18 1444 JSREVIEWED WITH PT 07/31/18 1510 BV. HOSPITALIZATION/MAJOR DIAGNOSTIC PROCEDURE SURG RELATED REVIEW OF SYSTEMS REVIEWED BY: PROVIDER: AWILDA KIM . CONSTITUTIONAL: ANY CHANGE IN YOUR MEDICAL CONDITION? NO . CHILLS NO . FEVER NO . INFECTION: DO YOU HAVE NEW INFECTIONS? NO . DO YOU HAVE HISTORY OF MRSA? NO . MUSCULOSKELETAL: ANY NEW PATTERNS OF PAIN OR NUMBNESS? YES, PT STATES SHE HAS HAD SEVERE INCREASE IN INTENSITY OF PAIN OVER THE PAST WEEK, ALSO COMPLAINS OF SWEELING IN BILATERAL FEET OVER THE PAST TWO WEEKS (RIGHT >LEFT) . GASTROENTEROLOGY: ANY NEW CHANGE IN BOWEL CONTROL? NO . GENITOURINARY: ANY NEW CHANGE IN BLADDER CONTROL? NO . IS THERE A CHANCE YOU COULD BE ? NO . HEMATOLOGY/LYMPH: DO YOU TAKE ANY BLOOD THINNERS? (FOR EXAMPLE- COUMADIN, PLAVIX, AGGRENOX, PLATEL, PRADAXA, OR XARELTO) COUMADIN, PLAVIX . WHEN WAS YOUR LAST DOSE? DATE: TIME: . NEUROLOGY: HAVE YOU FALLEN IN THE PAST 12 MONTHS? NO . ANY NEW EXTREMITY NUMBNESS OR WEAKNESS? NO . CARDIOLOGY: DO YOU HAVE A PACEMAKER OR DEFIBRILLATOR? NO . RESPIRATORY: HAVE YOU BEEN SICK IN THE PAST WEEK? NO . FEVER NO . FLU LIKE SYMPTOMS? NO . COUGH NO . INTEGUMENTARY: DO YOU HAVE ANY RASHES OR OPEN SORES? YES, PT STATES SHE HAS BEEN GETTING INTERMITTENT RED RASH TO BILATERAL FEET/LOW LEGS OVER THE PAST COUPLE WEEKS. STATES SHE HAS BEEN APPLYING CORTISONE CREAM. DENIES ANY ITCHING . ALLERGIC/IMMUNO: ARE YOU ALLERGIC TO IV DYE? NO . ANY NEW ALLERGIES? NO . PSYCHIATRIC: DO YOU HAVE THOUGHTS OF HURTING YOURSELF OR SOMEONE ELSE? NO . ARE YOU ABUSED, NEGLECTED, OR IN AN UNSAFE ENVIRONMENT? NO . ENDOCRINOLOGY: ARE YOU DIABETIC? NO . OTHER: DO YOU NEED ANY PRESCRIPTIONS? YES, OXYCODONE AND CYMBALTA . IF YES, PLEASE LIST: ____ . ANY NEW PROBLEMS WITH YOUR MEDICATIONS? NO . WHEN DID YOU LAST EAT? ____ . WHEN DID YOU LAST DRINK? ____ . WHAT DID YOU LAST DRINK? ____ . NAME OF PERSON DRIVING YOU HOME? ____ . DO YOU HAVE ANY OTHER QUESTIONS OR CONCERNS NO . VITAL SIGNS WT 223.8 LBS, HT 71 IN, BMI 31.21 INDEX, BP 137/74 MM HG, HR 84 /MIN, RR 16 /MIN, TEMP 97.3 F, OXYGEN SAT % 96%, NA INITIALS SC 14:39, REVIEWED BY: BV. EXAMINATION GENERAL EXAMINATION: GENERAL AWAKE,ALERT ,WEEPY. PSYCH AFFECT NORMAL . LUNGS: LUNG SALDANA ARE CLEAR TO AUSCULTATION BILATERALLY. GOOD MOVEMENT OF AIR . HEART: S1, S2 IN A REGULAR RATE AND RHYTHM. NO SIGNIFICANT MURMURS, RUBS OR GALLOPS NOTED . MUSCULOSKELETAL: 2/5 MST LOWER EXTREMITIES. CERVICAL TRIGGER POINTS: RIGHT RHOMBOID .PAIN IS AGGREVATED WITH ROJM RIGHT ARM. NEUROLOGIC EXAM: CN'S II-XII GROSSLY INTACT POSITIVE ROMBERG. ASSESSMENTS MYALGIA, OTHER SITE - M79.18 (PRIMARY) TREATMENT MYALGIA, OTHER SITE REFILL AMITRIPTYLINE HCL TABLET, 25 MG, DIRECTED, ORALLY, BEFORE BEDTIME, 30 DAY(S), 30, REFILLS 2 REFILL OXYCODONE HCL TABLET, 10 MG, 1 TABLET NEEDED, ORALLY, EVERY 4 - 6 HRS PRN PAIN MDD=4, 30 DAY(S), 120, REFILLS 0 CONTINUE LYRICA CAPSULE, 75 MG, 1 CAPSULE, ORALLY, TWICE A DAY CONTINUE GABAPENTIN CAPSULE, 300 MG, 2 CAP, ORALLY, TWICE DAILY STOP METHOCARBAMOL TABLET, 750 MG, 1 TABLET, ORALLY, THREE TIMES DAILY START BACLOFEN TABLET, 10 MG, 1 TABLET WITH FOOD OR MILK, ORALLY, THREE TIMES A DAY, 30 DAY(S), 90, REFILLS 2 INCREASE CYMBALTA CAPSULE DELAYED RELEASE PARTICLES, 60 MG, 1 CAPSULE, ORALLY, ONCE A DAY, 30 DAY(S), 30, REFILLS 2 NOTES: ISTOP REGISTRY REVIEWED AND DEMONSTRATES COMPLLIANCE. BRINGS IN MEDICATIONS WHICH IS APPROPRIATE FOR WHAT WAS DISPENSED. RECENT URINE TOXICOLOGY REVIEWED. NO UNAUTHORIZED MEDICATIONS. NO ILLICIT SUBSTANCES AND PRESCRIBED MEDICATIONS WERE PRESENT. , RISKS AND BENEFITS OF NARCOTIC/OPIOD MEDICATIONS WERE REVIEWED WITH PATIENT - THIS INCLUDES BUT IS NOT LIMITED TO RISK OF DEPENDANCE/DEVELOPMENT OF ADDICTION, MOOD DISTURBANCE AND DEPRESSION, OSTEOPOROSIS, HORMONAL AND LABIDAL CHANGES, RESPIRATORY DEPRESSION AND . PATIENT IS ADVISED NOT TO DRIVE OR DRINK ALCOHOL WHILE ON THESE MEDICATIONS. PREVENTIVE MEDICINE PAIN CLINIC TEACHING: MEDICATIONS PT GIVEN WRITTEN AND VERBAL EDUCATION ON STARTING BACLOFEN. PT VERBALIZES UNDERSTANDING OF ALL EDUCATION. COLBY DAMON 07/31/2018 4:15:56 PM > . DISPOSITION & COMMUNICATION FOLLOW UP 3 MONTHS ELECTRONICALLY SIGNED BY JULIO HATFIELD ON 08/14/2018 AT 10:13 AM EDT DISCLAIMER : THIS IS A VISIT SUMMARY EXTRACTED FROM THE [employer] CHART. IT IS NOT A COPY OF THE [employer] PROGRESS NOTE. SABASD
== END ==
LOC: M PAIN 14:15
PROVIDERS: ATTEND Nurse Practitioner Family
DX: M79.18 Myalgia, other site (principal); I25.10 Atherosclerotic heart disease of native coronary artery without angina pectoris; I10 Essential (primary) hypertension; K64.8 Other hemorrhoids; E11.9 Type 2 diabetes mellitus without complications; E78.5 Hyperlipidemia, unspecified; K21.9 Gastro-esophageal reflux disease without esophagitis; G43.909 Migraine, unspecified, not intractable, without status migrainosus; K44.9 Diaphragmatic hernia without obstruction or gangrene; G89.29 Other chronic pain; M19.90 Unspecified osteoarthritis, unspecified site; R45.1 Restlessness and agitation; F17.210 Nicotine dependence, cigarettes, uncomplicated; Z79.01 Long term (current) use of anticoagulants; Z79.02 Long term (current) use of antithrombotics/antiplatelets; Z91.041 Radiographic dye allergy status; Z79.891 Long term (current) use of opiate analgesic; Z79.84 Long term (current) use of oral hypoglycemic drugs; Z79.899 Other long term (current) drug therapy; Z91.030 Bee allergy status; Z88.6 Allergy status to analgesic agent; Z88.8 Allergy status to other drugs, medicaments and biological substances

== ENCOUNTER → 2018-10-31 | Outpatient (CLI) | payer OTHER ==
--- NOTE | 2018-11-02 01:17 | ECWPNPC ---
PATIENT NAME: MIGUEL PICKETT : 1965 GENDER: FEMALE VISIT DATE: 10/31/2018 DISCHARGE DATE: 10/31/18 1510 VISIT LOCKED DATE TIME: PHYSICIAN: BILL SRIVASTAVA RESOURCE: BILL SRIVASTAVA REASON FOR APPOINTMENT 1. 3 MOS HISTORY OF PRESENT ILLNESS HISTORY OF PRESENT ILLNESS: PAIN THE PATIENT DESCRIBES THE PAIN... 53-YEAR-OLD FEMALE IN FOR CHRONIC PAIN FOLLOW-UP. SHE RATES HER PAIN AT 10+ OUT OF 10 AND SHE STATES EXPERIENCED FALLS RECENTLY RELATED TO NEW DIAGNOSIS OF FOOT DROP. SHE DESCRIBES HER PAIN ACHING, BURNING, SORE, TENDER, SHARP, STABBING, SHOOTING AND FURTHER STATES THAT ITS EXTREME. SHE ALSO HAS COMPLAINTS OF SWELLING IN HER LEFT FOOT. FALL RISK SCREENING: SCREENING :NO FALLS REPORTED IN THE LAST YEAR CURRENT MEDICATIONS TAKING RAMIPRIL 10 MG CAPSULE 1 CAPSULE ORALLY ONCE A DAY TAKING COUMADIN 2 MG TABLET ORALLY 6MG DAILY EXCEPT FOR MONDAY DOSE IS 4 MG TAKING PLAVIX 75 MG TABLET 1 TABLET ORALLY ONCE A DAY TAKING NITROSTAT 0.4 MG TABLET SUBLINGUAL 1 TAB SUBLINGUALLY DIRECTED TAKING FOLIC ACID 1 MG TABLET 1 TABLET ORALLY ONCE A DAY TAKING ATORVASTATIN CALCIUM 80 MG TABLET 1 TABLET ORALLY ONCE A DAY TAKING METFORMIN HCL ER 500 MG TABLET EXTENDED RELEASE 24 HOUR 1 TABLET WITH EVENING MEAL ORALLY TWICE A DAY TAKING FLOVENT HFA 44 MCG/ACT AEROSOL INHALE TWO PUFFS BY MOUTH TWICE A DAY TAKING FLUTICASONE PROPIONATE HFA 220 MCG/ACT AEROSOL 1 PUFF INHALATION TWICE A DAY TAKING MONTELUKAST SODIUM 10 MG TABLET 1 TABLET IN THE EVENING ORALLY ONCE A DAY TAKING LINZESS 290 MCG CAPSULE 1 CAPSULE ORALLY ONCE A DAY TAKING OMEPRAZOLE 40 MG CAPSULE DELAYED RELEASE 1 CAPSULE ORALLY TWICE A DAY TAKING RANITIDINE HCL 75 MG TABLET 1 TABLET NEEDED ORALLY ONCE A DAY TAKING LORATADINE 10 MG TABLET 1 TABLET ORALLY ONCE A DAY TAKING FLONASE 50 MCG/ACT SUSPENSION 1 SPRAY IN EACH NOSTRIL NASALLY ONCE A DAY TAKING AZELASTINE-FLUTICASONE 137-50 MCG/ACT SUSPENSION 1 PUFF IN EACH NOSTRIL NASALLY TWICE A DAY TAKING EPIPEN 0.3 MG/0.3ML (1:1000) DEVICE 1 PEN INTRAMUSCULAR DAILY NEEDED TAKING NICODERM CQ 21 MG/24HR PATCH 24 HOUR 1 PATCH TO SKIN TRANSDERMAL ONCE A DAY TAKING FREESTYLE TEST STRIPS 1 STRIP TWICE A DAY NEEDED TAKING FLUCONAZOLE 100 MG TABLET 2 TABS ON DAY 1 ,THEN 1 TAB DAILY ON DAYS 2-10 ORALLY ONCE A DAY TAKING AMITRIPTYLINE HCL 25 MG TABLET DIRECTED ORALLY BEFORE BEDTIME TAKING LYRICA 75 MG CAPSULE 1 CAPSULE ORALLY TWICE A DAY TAKING GABAPENTIN 300 MG CAPSULE 2 CAP ORALLY TWICE DAILY TAKING BACLOFEN 10 MG TABLET 1 TABLET WITH FOOD OR MILK ORALLY THREE TIMES A DAY TAKING CYMBALTA 60 MG CAPSULE DELAYED RELEASE PARTICLES 1 CAPSULE ORALLY ONCE A DAY TAKING FREESTYLE LANCETS - MISCELLANEOUS 1 LANCET SUBCUTANEOUSLY TWICE A DAY NEEDED BID TAKING MIRTAZAPINE 15 MG TABLET 1 TABLET BEFORE BEDTIME IN THE EVENING ORALLY ONCE A DAY TAKING TRAZODONE HCL 150 MG TABLET 1 TABLET AT BEDTIME ORALLY BEFORE BEDTIME TAKING FREESTYLE LITE TEST - STRIP DIRECTED IN VITRO BID TAKING VENTOLIN HFA 108 (90 BASE) MCG/ACT AEROSOL SOLUTION 2 PUFFS NEEDED INHALATION EVERY 4 HRS TAKING DEPO-PROVERA 150 MG/ML SUSPENSION 1 ML INTRAMUSCULAR Q 3 MONTHS TAKING MUCINEX 600 MG TABLET EXTENDED RELEASE 1 TABLET NEEDED ORALLY EVERY 12 HRS TAKING PRAMIPEXOLE DIHYDROCHLORIDE 0.5 MG TABLET 1 TABLET BEFORE BEDTIME ORALLY 1 TAB IN AM 1 TAB IN PM TAKING OXYCODONE HCL 10 MG TABLET 1 TABLET NEEDED ORALLY EVERY 4 - 6 HRS PRN PAIN MDD=4 TAKING CETIRIZINE HCL 10 MG TABLET 1 TABLET NEEDED ORALLY ONCE A DAY TAKING VITAMIN D 15657 UNIT CAPSULE 1 CAPSULE ORALLY WEEKLY TAKING NICOTINE 21 MG/24HR PATCH 24 HOUR 1 PATCH TO SKIN TRANSDERMAL ONCE A DAY TAKING NICOTROL 10 MG INHALER 1 CARTRIDGE NEEDED INHALATION 16 TIME(S) A DAY NOT-TAKING CLONAZEPAM 1 MG TABLET 1 TABLET ORALLY TWICE A DAY NOT-TAKING METHOCARBAMOL 750 MG TABLET 1 TABLET ORALLY THREE TIMES DAILY MEDICATION LIST REVIEWED AND RECONCILED WITH THE PATIENT PAST MEDICAL HISTORY CAD - FOLLOWED BY [facility] INTERNAL HEMORRHOIDS T2DM HYPERLIPIDEMIA GERD MIGRAINES HIATAL HERNIA CHRONIC PAIN RESTLESS BODY SYNDROME ARTHRITIS COLONOSCOPY 2018 WITH DROP FOOT LEFT FRACTURE RIGHT KNEE CAP FRACTURED LEGT ELBOW ALLERGIES BEES: ANAPHYLAXIS - ALLERGY ANTI DEPRESANTS: MOOD ALTERATION--MEAN, ANGRY - SIDE EFFECTS ACETAMINOPHEN: N/V - SIDE EFFECTS ASPERTAME: N/V - SIDE EFFECTS HEART CATH DYE: ANAPHYLAXIS - ALLERGY FENTANYL : TASTE CHANGES - SIDE EFFECTS STEROIDS: THRUSH - SIDE EFFECTS IV DYE: ANAPHYLAXIS - ALLERGY SURGICAL HISTORY LATERAL RELEASE OF RIGHT KNEE LEFT KNEE BACK SURGERY LEFT SHOULDER SINUS SURGERY COLONOSCOPY DR. MARTINEZ. HEMORRHOIDS MODERATE 06/[address] [facility] ORDERED BY DR. Esteban ASHLEY, MULTIPLE STENTS, DUE TO UNSTABLE ANGINA 09/12/2017 FAMILY HISTORY FATHER: , PULMONARY FIBROSES MOTHER: , UNKNOWN, DIAGNOSED WITH DIABETES SIBLINGS: ALIVE SON(S): ALIVE DAUGHTER(S): ALIVE 2 SISTER(S) - HEALTHY. 1 SON(S) , 1 DAUGHTER(S) - HEALTHY. SOCIAL HISTORY GENERAL: TOBACCO USE ARE YOU A:CURRENT SMOKER ARE YOU INTERESTED IN QUITTING?READY TO QUIT TAKING NICOTINE PATCH AND NICOTROL INHALER COUNSELED THE PATIENT ON TOBACCO USE, CESSATION [id number]/25/2019 HOW MANY CIGARETTES A DAY DO YOU SMOKE?5 OR LESS CIGARS HOW SOON AFTER YOU WAKE UP DO YOU SMOKE YOUR FIRST CIGARETTE?6-30 MIN HOW OFTEN DO YOU SMOKE CIGARETTES?EVERY DAY PATIENT COUNSELED ON THE DANGERS OF TOBACCO USE AND URGED TO QUIT:10/31/2018 HIV / HEP-C SCREENING HIV TEST OFFERED TO PATIENT:YES DATE OFFERED:05/02/2017 HEP-C TEST OFFERED TO PATIENT:YES DATE OFFERED:05/02/2017 BROCHURE PROVIDED TO PATIENTNO LANGUAGE LANGUAGES SPOKEN:THAI DOMESTIC VIOLENCE DO YOU FEEL SAFE IN YOUR ENVIRONMENT?YES RECREATIONAL DRUG USE DRUG USE?NO LEARNING BARRIERS / SPECIAL NEEDS CHANGE FROM LAST VISIT?NO BARRIERS TO LEARNING?YES COMMENTS STATES SHE HAS A 4TH GRADE READING LEVEL HEARING IMPAIRED?NO VISION IMPAIRED?YES COGNITIVELY IMPAIRED?NO :CORRECTIVE LENSES READING GLASSES READINESS TO LEARN?YES LEARNING PREFERENCES?YES :OTHER (PLEASE COMMENT) "LEARNING IT HERSELF OR HEARING IT FROM OTHER PEOPLE" LEARNING CAPABILITIES PRESENT?YES EMOTIONAL BARRIERS?NO SPECIAL DEVICES?YES :CANE SUPERVISORY LIFEGUARD NEEDED?NO PAIN CLINIC PFS, CLERGY, PUBLIC HEALTH REFERRALS PFS REFERRAL NEEDED?NO CLERGY REFERRAL NEEDED?NO PUBLIC HEALTH REFERRAL NEEDED?NO WAS THE PROVIDER NOTIFIED OF ANY PERTINENT INFO? N/A HAS THE PATIENT BEEN EDUCATED REGARDING HIS/HER PLAN OF CARE?YES HAS THE PATIENT BEEN EDUCATED REGARDING PAIN, THE RISK FOR PAIN, THE IMPORTANCE OF EFFECTIVE PAIN MANAGEMENT, AND THE PAIN ASSESSMENT PROCESS?YES LATEX QUESTIONNAIRE LATEX ALLERGY : HAVE YOU EVER DEVELOPED ANY TYPE OF REACTION AFTER HANDLING LATEX PRODUCTS SUCH RUBBER GLOVES, CONDOMS, DIAPHRAGMS, BALLOONS, SOCKS, OR UNDERWEAR?NO LATEX ALLERGY : HAVE YOU EVER DEVELOPED ANY TYPE OF REACTION DURING OR AFTER DENTAL APPOINTMENT, VAGINAL/RECTAL EXAMINATION, SURGICAL PROCEDURE, OR ANY OTHER EXPOSURE?NO LATEX RISK : HAVE YOU EVER HAD ANY DIFFICULTY BREATHING OR HIVES AFTER EATING OR HANDLING ANY FRUITS, OR VEGETABLES; SUCH KIWI, BANANAS, STONE FRUITS, OR CHESTNUTSNO LATEX RISK : DO YOU HAVE A PREVIOUS PERSONAL HISTORY OF MORE THAN NINE SURGERIES, SPINA BIFIDA, OR REPEATED CATHERIZATIONS? NO LATEX RISK : ARE YOU FREQUENTLY EXPOSED TO LATEX PRODUCTS IN YOUR OCCUPATION?NO DATE ASKED : 10/31/2018 CAFFEINE CAFFEINE USE?YES HOW OFTEN AND HOW MUCH? 2 CUPS COFFEE PER DAY ADVANCE DIRECTIVE ADVANCE DIRECTIVE DISCUSSED WITH PATIENT:YES 10/31/18 PT DOES NOT HAVE ANY ADVANCED DIRECTIVES AND SHE DECLINES INFORMATION ON HCP AT THIS TIME. AD AMISH [id number] NONE NO MORAVIAN BELIEFS THAT WOULD IMPACT HEALTH CARE. MARITAL STATUS: SINGLE. ALCOHOL SCREENING DID YOU HAVE A DRINK CONTAINING ALCOHOL IN THE PAST YEAR?NO POINTS0 INTERPRETATIONNEGATIVE SEXUAL HX HAD SEX IN THE LAST 12 MONTHS (VAGINAL, ORAL, OR ANAL)?NO LMP:25 YEARS HAVE YOU EVER HAD AN STD?NO REVIEWED WITH PATIENT 02/02/18 1444 JSREVIEWED WITH PT 07/31/18 1510 BV. HOSPITALIZATION/MAJOR DIAGNOSTIC PROCEDURE SURG RELATED REVIEW OF SYSTEMS REVIEWED BY: PROVIDER: ROBERT KIM-Yue . CONSTITUTIONAL: ANY CHANGE IN YOUR MEDICAL CONDITION? YES, FOOT DROP LEFT, FRACTURED RIGTH KNEE CAP AND FRACTURED LEFT ELBOW . CHILLS NO . FEVER NO . INFECTION: DO YOU HAVE NEW INFECTIONS? NO . DO YOU HAVE HISTORY OF MRSA? NO . MUSCULOSKELETAL: ANY NEW PATTERNS OF PAIN OR NUMBNESS? YES, INCREASE IN PAIN BOTH LEGS,HIPS,BACK . GASTROENTEROLOGY: ANY NEW CHANGE IN BOWEL CONTROL? NO . GENITOURINARY: ANY NEW CHANGE IN BLADDER CONTROL? NO . IS THERE A CHANCE YOU COULD BE ? NO . HEMATOLOGY/LYMPH: DO YOU TAKE ANY BLOOD THINNERS? (FOR EXAMPLE- COUMADIN, PLAVIX, AGGRENOX, PLATEL, PRADAXA, OR XARELTO) YES, COUMADIN AND PLAVIX . WHEN WAS YOUR LAST DOSE? DATE: TIME: 10/30/18 2200 . NEUROLOGY: HAVE YOU FALLEN IN THE PAST 12 MONTHS? YES, 6 IN THE PAST COUPLE OF DAYS, AND SEVERAL TIMES BEFORE THAT . ANY NEW EXTREMITY NUMBNESS OR WEAKNESS? YES, IN BOTH LEGS AND ARMS . CARDIOLOGY: DO YOU HAVE A PACEMAKER OR DEFIBRILLATOR? NO . RESPIRATORY: HAVE YOU BEEN SICK IN THE PAST WEEK? YES . FEVER NO . FLU LIKE SYMPTOMS? NO . COUGH YES, HARSE PRODUCTIVE, RAISING YELLOWISH BROWN MUCUS FOR THE PAST MONTH . INTEGUMENTARY: DO YOU HAVE ANY RASHES OR OPEN SORES? NO . ALLERGIC/IMMUNO: ARE YOU ALLERGIC TO IV DYE? YES . ANY NEW ALLERGIES? NO . PSYCHIATRIC: DO YOU HAVE THOUGHTS OF HURTING YOURSELF OR SOMEONE ELSE? NO . ARE YOU ABUSED, NEGLECTED, OR IN AN UNSAFE ENVIRONMENT? NO . ENDOCRINOLOGY: ARE YOU DIABETIC? YES . OTHER: DO YOU NEED ANY PRESCRIPTIONS? YES . IF YES, PLEASE LIST: AMITRIPTYLINE,BACLOFEN, DULOTINE, GABAPENTIN, OXYCODONE, CLONAZEPAM . ANY NEW PROBLEMS WITH YOUR MEDICATIONS? NO . WHEN DID YOU LAST EAT? ____ . WHEN DID YOU LAST DRINK? ____ . WHAT DID YOU LAST DRINK? ____ . NAME OF PERSON DRIVING YOU HOME? ____ . DO YOU HAVE ANY OTHER QUESTIONS OR CONCERNS YES, CAN YOU ORDER THE CLONAZEPAM? . VITAL SIGNS WT 230.4 LBS, HT 71 IN, BMI 32.13 INDEX, BP 134/63 MM HG, HR 97 /MIN, RR 16 /MIN, TEMP 99.0 F, OXYGEN SAT % 96%, SAFE IN ENV? (Y/N) Y, NA INITIALS AW 1418, REVIEWED BY: AD. EXAMINATION GENERAL EXAMINATION: GENERALNO ACUTE DISTRESS, WELL NOURISHED AND HYDRATED. PSYCHAPPROPRIATE MOOD AND AFFECT . LUNGS:CLEAR TO AUSCULTATION BILATERALLY, NO WHEEZES, RHONCHI, RALES. HEART:NO MURMURS, REGULAR RATE AND RHYTHM. 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 TREATMENT MYALGIA, OTHER SITE INCREASE GABAPENTIN CAPSULE, 300 MG, 2 CAP, ORALLY, 2 CAPS IN AM 2 CAPS IN PM 1 CAP IN AFTERNOON, 30 DAYS, 150 REFILL BACLOFEN TABLET, 10 MG, 1 TABLET WITH FOOD OR MILK, ORALLY, THREE TIMES A DAY, 30 DAY(S), 90, REFILLS 2 REFILL CYMBALTA CAPSULE DELAYED RELEASE PARTICLES, 60 MG, 1 CAPSULE, ORALLY, ONCE A DAY, 30 DAY(S), 30, REFILLS 2 REFILL OXYCODONE HCL TABLET, 10 MG, 1 TABLET NEEDED, ORALLY, EVERY 4 - 6 HRS PRN PAIN MDD=4, 30 DAY(S), 120, REFILLS 0 REFILL AMITRIPTYLINE HCL TABLET, 25 MG, DIRECTED, ORALLY, BEFORE BEDTIME, 30 DAY(S), 30, REFILLS 2 CLINICAL NOTES: 53-YEAR-OLD FEMALE IN FOR CHRONIC PAIN FOLLOW-UP. GIVEN PRESENTING SYMPTOMS RECOMMENDED INCREASING GABAPENTIN TO 300 MG 3 TIMES A DAY WITH FOLLOW-UP IN 2 MONTHS. THIS BEATER OUT DID INSPECT PATIENT'S LEFT LOWER EXTREMITY AND SHE IS NOTED TO HAVE ERYTHEMA AND INCREASED WARMTH FOR WHICH SHE WAS ENCOURAGED TO DISCUSS WITH URGENTCARE. PATIENT HAS EXPRESSED UNDERSTANDING OF AND WAS IN AGREEMENT WITH TREATMENT PLAN. GIVEN TIME TO ASK QUESTIONS AND EXPRESS CONCERNS., ISTOP REGISTRY REVIEWED AND DEMONSTRATES COMPLLIANCE. (REF # [id number] ) BRINGS IN MEDICATIONS WHICH IS APPROPRIATE FOR WHAT WAS DISPENSED. RECENT URINE TOXICOLOGY REVIEWED. NO UNAUTHORIZED MEDICATIONS. NO ILLICIT SUBSTANCES AND PRESCRIBED MEDICATIONS WERE PRESENT. PROCEDURE CODES FA211 ESTABILISHED PATIENT [facility] F[facility] CHARGE DISPOSITION & COMMUNICATION FOLLOW UP 2 MONTHS (REASON: MEDICATION CHANGES) ELECTRONICALLY SIGNED BY JULIO BRAMBILA ON 11/01/2018 AT 10:28 AM EDT DISCLAIMER : THIS IS A VISIT SUMMARY EXTRACTED FROM THE [facility]. IT IS NOT A COPY OF THE [facility] PROGRESS NOTE. JHON
== END ==
LOC: M PAIN 13:30
PROVIDERS: ATTEND Family Medicine
DX: M79.18 Myalgia, other site (principal); M96.1 Postlaminectomy syndrome, not elsewhere classified; I10 Essential (primary) hypertension; E11.9 Type 2 diabetes mellitus without complications; E78.5 Hyperlipidemia, unspecified; K21.9 Gastro-esophageal reflux disease without esophagitis; G43.909 Migraine, unspecified, not intractable, without status migrainosus; M19.90 Unspecified osteoarthritis, unspecified site; F17.210 Nicotine dependence, cigarettes, uncomplicated; Z88.5 Allergy status to narcotic agent; Z88.6 Allergy status to analgesic agent; Z88.8 Allergy status to other drugs, medicaments and biological substances; Z91.030 Bee allergy status; Z91.041 Radiographic dye allergy status; Z79.01 Long term (current) use of anticoagulants; Z79.84 Long term (current) use of oral hypoglycemic drugs; Z79.899 Other long term (current) drug therapy

== ENCOUNTER → 2018-12-31 | Outpatient (CLI) | payer OTHER ==
[~2018-12-31] MED LIST changes: +OMEP-358 PO; -OMEP20TA PO; -OMEP40CA2 PO; +OMEP40CA97 PO; -SIMV40TA2 PO; +SIMV40TA20 PO
--- NOTE | 2019-01-03 02:43 | ECWPNPC ---
PATIENT NAME: MIGUEL PICKETT : 1965 GENDER: FEMALE VISIT DATE: 12/31/2018 DISCHARGE DATE: 12/31/18 1403 VISIT LOCKED DATE TIME: PHYSICIAN: BILL SRIVASTAVA RESOURCE: BILL SRIVASTAVA REASON FOR APPOINTMENT 1. 2 MONTHS HISTORY OF PRESENT ILLNESS HISTORY OF PRESENT ILLNESS: PAIN THE PATIENT DESCRIBES THE PAIN... 53-YEAR-OLD FEMALE IN FOR CHRONIC PAIN FOLLOW-UP. AT LAST CLINIC VISIT HER GABAPENTIN WAS INCREASED AND SHE FEELS THAT THIS WAS BENEFICIAL ALTHOUGH SHE IS STILL EXPERIENCING INCREASED PAIN. SHE RATES HER PAIN CURRENTLY AT A 9 OUT OF 10 AND DESCRIBES IT ACHING, SHARP, BURNING, STABBING, SORE, SHOOTING, AND TENDER. SHE DOES ADMIT TO A FALL APPROXIMATELY 2 WEEKS AGO THAT SHE WAS NOT EVALUATED FOR. FALL RISK SCREENING: SCREENING :NO FALLS REPORTED IN THE LAST YEAR CURRENT MEDICATIONS TAKING RAMIPRIL 10 MG CAPSULE 1 CAPSULE ORALLY ONCE A DAY TAKING COUMADIN 2 MG TABLET ORALLY 6MG DAILY EXCEPT FOR MONDAY DOSE IS 4 MG TAKING PLAVIX 75 MG TABLET 1 TABLET ORALLY ONCE A DAY TAKING NITROSTAT 0.4 MG TABLET SUBLINGUAL 1 TAB SUBLINGUALLY DIRECTED TAKING FOLIC ACID 1 MG TABLET 1 TABLET ORALLY ONCE A DAY TAKING ATORVASTATIN CALCIUM 80 MG TABLET 1 TABLET ORALLY ONCE A DAY TAKING METFORMIN HCL ER 500 MG TABLET EXTENDED RELEASE 24 HOUR 1 TABLET WITH EVENING MEAL ORALLY TWICE A DAY TAKING FLUTICASONE PROPIONATE HFA 220 MCG/ACT AEROSOL 1 PUFF INHALATION TWICE A DAY TAKING MONTELUKAST SODIUM 10 MG TABLET 1 TABLET IN THE EVENING ORALLY ONCE A DAY TAKING OMEPRAZOLE 40 MG CAPSULE DELAYED RELEASE 1 CAPSULE ORALLY TWICE A DAY TAKING RANITIDINE HCL 75 MG TABLET 1 TABLET NEEDED ORALLY ONCE A DAY TAKING LORATADINE 10 MG TABLET 1 TABLET ORALLY ONCE A DAY TAKING AZELASTINE-FLUTICASONE 137-50 MCG/ACT SUSPENSION 1 PUFF IN EACH NOSTRIL NASALLY TWICE A DAY TAKING EPIPEN 0.3 MG/0.3ML (1:1000) DEVICE 1 PEN INTRAMUSCULAR DAILY NEEDED TAKING FREESTYLE TEST STRIPS 1 STRIP TWICE A DAY NEEDED TAKING FLUCONAZOLE 100 MG TABLET 2 TABS ON DAY 1 ,THEN 1 TAB DAILY ON DAYS 2-10 ORALLY ONCE A DAY TAKING VENTOLIN HFA 108 (90 BASE) MCG/ACT AEROSOL SOLUTION 2 PUFFS NEEDED INHALATION EVERY 4 HRS TAKING MUCINEX 600 MG TABLET EXTENDED RELEASE 1 TABLET NEEDED ORALLY EVERY 12 HRS TAKING CETIRIZINE HCL 10 MG TABLET 1 TABLET NEEDED ORALLY ONCE A DAY TAKING VITAMIN D [id number] UNIT CAPSULE 1 CAPSULE ORALLY WEEKLY TAKING NICOTINE 21 MG/24HR PATCH 24 HOUR 1 PATCH TO SKIN TRANSDERMAL ONCE A DAY TAKING NICOTROL 10 MG INHALER 1 CARTRIDGE NEEDED INHALATION 16 TIME(S) A DAY TAKING BACLOFEN 10 MG TABLET 1 TABLET WITH FOOD OR MILK ORALLY THREE TIMES A DAY TAKING CYMBALTA 60 MG CAPSULE DELAYED RELEASE PARTICLES 1 CAPSULE ORALLY ONCE A DAY TAKING AMITRIPTYLINE HCL 25 MG TABLET DIRECTED ORALLY BEFORE BEDTIME TAKING FREESTYLE LITE TEST - STRIP DIRECTED IN VITRO BID TAKING TRAZODONE HCL 150 MG TABLET 1 TABLET AT BEDTIME ORALLY BEFORE BEDTIME TAKING FREESTYLE LANCETS - MISCELLANEOUS 1 LANCET SUBCUTANEOUSLY TWICE A DAY NEEDED BID TAKING MIRTAZAPINE 15 MG TABLET 1 TABLET BEFORE BEDTIME IN THE EVENING ORALLY ONCE A DAY TAKING FLOVENT HFA 44 MCG/ACT AEROSOL INHALE TWO PUFFS BY MOUTH TWICE A DAY INHALATION TWICE A DAY TAKING PRAMIPEXOLE DIHYDROCHLORIDE 0.5 MG TABLET 1 TABLET BEFORE BEDTIME ORALLY 1 TAB IN AM 1 TAB IN PM TAKING OXYCODONE HCL 10 MG TABLET 1 TABLET NEEDED ORALLY EVERY 4 - 6 HRS PRN PAIN MDD=4 TAKING GABAPENTIN 300 MG CAPSULE 2 CAP ORALLY 2 CAPS IN AM 2 CAPS IN PM 1 CAP IN AFTERNOON NOT-TAKING LINZESS 290 MCG CAPSULE 1 CAPSULE ORALLY ONCE A DAY NOT-TAKING LYRICA 75 MG CAPSULE 1 CAPSULE ORALLY TWICE A DAY NOT-TAKING DEPO-PROVERA 150 MG/ML SUSPENSION 1 ML INTRAMUSCULAR Q 3 MONTHS NOT-TAKING FLONASE 50 MCG/ACT SUSPENSION 1 SPRAY IN EACH NOSTRIL NASALLY ONCE A DAY NOT-TAKING NICODERM CQ 21 MG/24HR PATCH 24 HOUR 1 PATCH TO SKIN TRANSDERMAL ONCE A DAY NOT-TAKING CLONAZEPAM 1 MG TABLET 1 TABLET ORALLY TWICE A DAY NOT-TAKING METHOCARBAMOL 750 MG TABLET 1 TABLET ORALLY THREE TIMES DAILY MEDICATION LIST REVIEWED AND RECONCILED WITH THE PATIENT PAST MEDICAL HISTORY CAD - FOLLOWED BY [facility] INTERNAL HEMORRHOIDS T2DM HYPERLIPIDEMIA GERD MIGRAINES HIATAL HERNIA CHRONIC PAIN RESTLESS BODY SYNDROME ARTHRITIS COLONOSCOPY 2018 WITH DROP FOOT LEFT FRACTURE RIGHT KNEE CAP FRACTURED LEGT ELBOW ALLERGIES BEES: ANAPHYLAXIS - ALLERGY ANTI DEPRESANTS: MOOD ALTERATION--MEAN, ANGRY - SIDE EFFECTS ACETAMINOPHEN: N/V - SIDE EFFECTS ASPERTAME: N/V - SIDE EFFECTS HEART CATH DYE: ANAPHYLAXIS - ALLERGY FENTANYL : TASTE CHANGES - SIDE EFFECTS STEROIDS: THRUSH - SIDE EFFECTS IV DYE: ANAPHYLAXIS - ALLERGY SURGICAL HISTORY LATERAL RELEASE OF RIGHT KNEE LEFT KNEE BACK SURGERY LEFT SHOULDER SINUS SURGERY COLONOSCOPY DR. MARTINEZ. HEMORRHOIDS MODERATE 06/[address] [facility] ORDERED BY DR. Esteban ASHLEY, MULTIPLE STENTS, DUE TO UNSTABLE ANGINA 09/12/2017 FAMILY HISTORY FATHER: , PULMONARY FIBROSES MOTHER: , UNKNOWN, DIAGNOSED WITH DIABETES SIBLINGS: ALIVE SON(S): ALIVE DAUGHTER(S): ALIVE 2 SISTER(S) - HEALTHY. 1 SON(S) , 1 DAUGHTER(S) - HEALTHY. SOCIAL HISTORY GENERAL: TOBACCO USE ARE YOU A:CURRENT SMOKER ARE YOU INTERESTED IN QUITTING?READY TO QUIT TAKING NICOTINE PATCH AND NICOTROL INHALER COUNSELED THE PATIENT ON TOBACCO USE, CESSATION [id number]/25/2019 HOW MANY CIGARETTES A DAY DO YOU SMOKE?5 OR LESS HOW SOON AFTER YOU WAKE UP DO YOU SMOKE YOUR FIRST CIGARETTE?6-30 MIN HOW OFTEN DO YOU SMOKE CIGARETTES?EVERY DAY PATIENT COUNSELED ON THE DANGERS OF TOBACCO USE AND URGED TO QUIT:12/31/2018 HIV / HEP-C SCREENING HIV TEST OFFERED TO PATIENT:YES DATE OFFERED:05/02/2017 HEP-C TEST OFFERED TO PATIENT:YES DATE OFFERED:05/02/2017 BROCHURE PROVIDED TO PATIENTNO LANGUAGE LANGUAGES SPOKEN:MONEGASQUE DOMESTIC VIOLENCE DO YOU FEEL SAFE IN YOUR ENVIRONMENT?YES RECREATIONAL DRUG USE DRUG USE?NO LEARNING BARRIERS / SPECIAL NEEDS CHANGE FROM LAST VISIT?NO BARRIERS TO LEARNING?YES COMMENTS STATES SHE HAS A 4TH GRADE READING LEVEL HEARING IMPAIRED?NO VISION IMPAIRED?YES COGNITIVELY IMPAIRED?NO :CORRECTIVE LENSES READING GLASSES READINESS TO LEARN?YES LEARNING PREFERENCES?YES :OTHER (PLEASE COMMENT) "LEARNING IT HERSELF OR HEARING IT FROM OTHER PEOPLE" LEARNING CAPABILITIES PRESENT?YES EMOTIONAL BARRIERS?NO SPECIAL DEVICES?YES :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 N/A HAS THE PATIENT BEEN EDUCATED REGARDING HIS/HER PLAN OF CARE?YES HAS THE PATIENT BEEN EDUCATED REGARDING PAIN, THE RISK FOR PAIN, THE IMPORTANCE OF EFFECTIVE PAIN MANAGEMENT, AND THE PAIN ASSESSMENT PROCESS?YES LATEX QUESTIONNAIRE LATEX ALLERGY : HAVE YOU EVER DEVELOPED ANY TYPE OF REACTION AFTER HANDLING LATEX PRODUCTS SUCH RUBBER GLOVES, CONDOMS, DIAPHRAGMS, BALLOONS, SOCKS, OR UNDERWEAR?NO LATEX ALLERGY : HAVE YOU EVER DEVELOPED ANY TYPE OF REACTION DURING OR AFTER DENTAL APPOINTMENT, VAGINAL/RECTAL EXAMINATION, SURGICAL PROCEDURE, OR ANY OTHER EXPOSURE?NO LATEX RISK : HAVE YOU EVER HAD ANY DIFFICULTY BREATHING OR HIVES AFTER EATING OR HANDLING ANY FRUITS, OR VEGETABLES; SUCH KIWI, BANANAS, STONE FRUITS, OR CHESTNUTSNO LATEX RISK : DO YOU HAVE A PREVIOUS PERSONAL HISTORY OF MORE THAN NINE SURGERIES, SPINA BIFIDA, OR REPEATED CATHERIZATIONS? NO LATEX RISK : ARE YOU FREQUENTLY EXPOSED TO LATEX PRODUCTS IN YOUR OCCUPATION?NO DATE ASKED : 10/31/2018 CAFFEINE CAFFEINE USE?YES HOW OFTEN AND HOW MUCH? 2 CUPS COFFEE PER DAY ADVANCE DIRECTIVE ADVANCE DIRECTIVE DISCUSSED WITH PATIENT:YES PT DOES NOT HAVE ANY ADVANCED DIRECTIVES AND SHE DECLINES INFORMATION ON HCP AT THIS TIME. RESTORATION [id number] NONE NO SPIRITISM BELIEFS THAT WOULD IMPACT HEALTH CARE. MARITAL STATUS: SINGLE. ALCOHOL SCREENING DID YOU HAVE A DRINK CONTAINING ALCOHOL IN THE PAST YEAR?NO POINTS0 INTERPRETATIONNEGATIVE SEXUAL HX HAD SEX IN THE LAST 12 MONTHS (VAGINAL, ORAL, OR ANAL)?NO LMP:25 YEARS HAVE YOU EVER HAD AN STD?NO REVIEWED WITH PATIENT 02/02/18 1444 JSREVIEWED WITH PT 07/31/18 1510 BVREVIEWED WITH PATIENT 12/31/18 1323 JS. HOSPITALIZATION/MAJOR DIAGNOSTIC PROCEDURE SURG RELATED REVIEW OF SYSTEMS REVIEWED BY: PROVIDER: ROBERT SAWANT . CONSTITUTIONAL: ANY CHANGE IN YOUR MEDICAL CONDITION? NO . CHILLS NO . FEVER NO . INFECTION: DO YOU HAVE NEW INFECTIONS? NO . DO YOU HAVE HISTORY OF MRSA? NO . MUSCULOSKELETAL: ANY NEW PATTERNS OF PAIN OR NUMBNESS? YES, STATES PAIN IN BACK INCREASED SINCE FALL A FEW WEEKS AGO . GASTROENTEROLOGY: ANY NEW CHANGE IN BOWEL CONTROL? NO . GENITOURINARY: ANY NEW CHANGE IN BLADDER CONTROL? NO . IS THERE A CHANCE YOU COULD BE ? NO . HEMATOLOGY/LYMPH: DO YOU TAKE ANY BLOOD THINNERS? (FOR EXAMPLE- COUMADIN, PLAVIX, AGGRENOX, PLATEL, PRADAXA, OR XARELTO) YES, COUMADIN AND PLAVIX . WHEN WAS YOUR LAST DOSE? DATE: 12/30/18TIME: 2200 . NEUROLOGY: HAVE YOU FALLEN IN THE PAST 12 MONTHS? YES, STATES SHE SLIPPED AND FELL IN SNOW, THINKS SHE PULLED SOMETHING IN HER BACK. NO ED VISIT, NO IMAGING . ANY NEW EXTREMITY NUMBNESS OR WEAKNESS? YES, STATES HER LEGS ARE VERY WEAK, SHAKEY - CAN'T STAND FOR VERY LONG . CARDIOLOGY: DO YOU HAVE A PACEMAKER OR DEFIBRILLATOR? NO . RESPIRATORY: HAVE YOU BEEN SICK IN THE PAST WEEK? NO . FEVER NO . FLU LIKE SYMPTOMS? NO . COUGH NO . INTEGUMENTARY: DO YOU HAVE ANY RASHES OR OPEN SORES? NO . ALLERGIC/IMMUNO: ARE YOU ALLERGIC TO IV DYE? YES . ANY NEW ALLERGIES? NO . PSYCHIATRIC: DO YOU HAVE THOUGHTS OF HURTING YOURSELF OR SOMEONE ELSE? NO . ARE YOU ABUSED, NEGLECTED, OR IN AN UNSAFE ENVIRONMENT? NO . ENDOCRINOLOGY: ARE YOU DIABETIC? YES . OTHER: DO YOU NEED ANY PRESCRIPTIONS? NO . IF YES, PLEASE LIST: ____ . ANY NEW PROBLEMS WITH YOUR MEDICATIONS? NO . WHEN DID YOU LAST EAT? ____ . WHEN DID YOU LAST DRINK? ____ . WHAT DID YOU LAST DRINK? ____ . NAME OF PERSON DRIVING YOU HOME? ____ . DO YOU HAVE ANY OTHER QUESTIONS OR CONCERNS YES, STATES SHE FELL A COUPLE WEEKS AGO AND HER BACK HAS BEEN MORE PAINFUL SINCE - THINKS SHE PULLED SOMETHING . VITAL SIGNS WT 241.8 LBS, HT 71 IN, BMI 33.72 INDEX, BP 140/68 MM HG, HR 90 /MIN, RR 16 /MIN, TEMP 97.0 F, OXYGEN SAT % 95%, SAFE IN ENV? (Y/N) YES, NA INITIALS AW [id number], REVIEWED BY: GERTRUDE. EXAMINATION GENERAL EXAMINATION: GENERALNO ACUTE DISTRESS, WELL NOURISHED AND HYDRATED. PSYCHAPPROPRIATE MOOD AND AFFECT . LUNGS:CLEAR TO AUSCULTATION BILATERALLY, NO WHEEZES, RHONCHI, RALES. HEART:NO MURMURS, REGULAR RATE AND RHYTHM. ASSESSMENTS NEUROPATHY - G62.9 (PRIMARY) CHRONIC PRESCRIPTION OPIATE USE - Z79.899 TREATMENT NEUROPATHY INCREASE GABAPENTIN TABLET, 600 MG, 1, ORALLY, TID, 30 DAYS, 90 CLINICAL NOTES: 53-YEAR-OLD FEMALE IN FOR CHRONIC PAIN FOLLOW-UP. GIVEN PRESENTING SYMPTOMS AND RESULTS OF PHYSICAL EXAMINATION RECOMMENDED INCREASING GABAPENTIN TO 600 MG 3 TIMES A DAY. WE'LL FOLLOW-UP IN 2 MONTHS TO DETERMINE EFFICACY OF TREATMENT. PATIENT WAS ENCOURAGED TO AN URGENT CARE REGARDING HER FOLLOW-UP. PATIENT HAS EXPRESSED UNDERSTANDING OF AND WAS IN AGREEMENT WITH TREATMENT PLAN. GIVEN TIME TO ASK QUESTIONS AND EXPRESS CONCERNS., [employer] [facility] REVIEWED AND DEMONSTRATES COMPLLIANCE. (REF # [id number] ) BRINGS IN MEDICATIONS WHICH IS APPROPRIATE FOR WHAT WAS DISPENSED. RECENT URINE TOXICOLOGY REVIEWED. NO UNAUTHORIZED MEDICATIONS. NO ILLICIT SUBSTANCES AND PRESCRIBED MEDICATIONS WERE PRESENT. PROCEDURE CODES FA211 ESTABILISHED PATIENT [facility] CHARGE DISPOSITION & COMMUNICATION FOLLOW UP 2 MONTHS (REASON: NEUROPATHY) ELECTRONICALLY SIGNED BY JULIO BRAMBILA ON 01/02/2019 AT 08:32 AM EST DISCLAIMER : THIS IS A VISIT SUMMARY EXTRACTED FROM THE [email or web address] CHART. IT IS NOT A COPY OF THE [employer] PROGRESS NOTE. JHON
== END ==
LOC: M PAIN 13:00
PROVIDERS: ATTEND Family Medicine
DX: G62.9 Polyneuropathy, unspecified (principal); G89.29 Other chronic pain; I10 Essential (primary) hypertension; E11.9 Type 2 diabetes mellitus without complications; E78.5 Hyperlipidemia, unspecified; K21.9 Gastro-esophageal reflux disease without esophagitis; G43.909 Migraine, unspecified, not intractable, without status migrainosus; F17.210 Nicotine dependence, cigarettes, uncomplicated; Z88.5 Allergy status to narcotic agent; Z88.8 Allergy status to other drugs, medicaments and biological substances; Z91.030 Bee allergy status; Z91.041 Radiographic dye allergy status; Z79.01 Long term (current) use of anticoagulants; Z79.84 Long term (current) use of oral hypoglycemic drugs; Z79.899 Other long term (current) drug therapy

== ENCOUNTER → 2019-03-01 | Outpatient (CLI) | payer OTHER ==
[~2019-03-01] MED LIST changes: -TRAZ-163 PO; +TRAZ-257 PO
--- NOTE | 2019-03-05 06:04 | ECWPNPC ---
PATIENT NAME: MIGUEL PICKETT : 1965 GENDER: FEMALE VISIT DATE: 03/01/2019 DISCHARGE DATE: 03/01/19 1403 VISIT LOCKED DATE TIME: PHYSICIAN: BILL SRIVASTAVA RESOURCE: BILL SRIVASTAVA REASON FOR APPOINTMENT 1. 2 MONTHS, NEUROPATHY HISTORY OF PRESENT ILLNESS HISTORY OF PRESENT ILLNESS: PAIN THE PATIENT DESCRIBES THE PAIN... 53-YEAR-OLD FEMALE IN FOR CHRONIC PAIN FOLLOW-UP. HIS PAIN CURRENTLY AT A 10+ OUT OF 10 AND DESCRIBES IT ACHING, SHARP, BURNING, STABBING, SORE, SHOOTING, AND TENDER. SHE DOES NOT FEEL HER MEDICATIONS ARE COVERING HER PAIN ADEQUATELY AT THIS TIME. FALL RISK SCREENING: SCREENING :NO FALLS REPORTED IN THE LAST YEAR CURRENT MEDICATIONS TAKING RAMIPRIL 10 MG CAPSULE 1 CAPSULE ORALLY ONCE A DAY TAKING COUMADIN 2 MG TABLET ORALLY 6MG DAILY EXCEPT FOR MONDAY DOSE IS 4 MG TAKING PLAVIX 75 MG TABLET 1 TABLET ORALLY ONCE A DAY TAKING NITROSTAT 0.4 MG TABLET SUBLINGUAL 1 TAB SUBLINGUALLY DIRECTED TAKING FOLIC ACID 1 MG TABLET 1 TABLET ORALLY ONCE A DAY TAKING ATORVASTATIN CALCIUM 80 MG TABLET 1 TABLET ORALLY ONCE A DAY TAKING METFORMIN HCL ER 500 MG TABLET EXTENDED RELEASE 24 HOUR 1 TABLET WITH EVENING MEAL ORALLY TWICE A DAY TAKING FLUTICASONE PROPIONATE HFA 220 MCG/ACT AEROSOL 1 PUFF INHALATION TWICE A DAY TAKING MONTELUKAST SODIUM 10 MG TABLET 1 TABLET IN THE EVENING ORALLY ONCE A DAY TAKING OMEPRAZOLE 40 MG CAPSULE DELAYED RELEASE 1 CAPSULE ORALLY TWICE A DAY TAKING RANITIDINE HCL 75 MG TABLET 1 TABLET NEEDED ORALLY ONCE A DAY TAKING AZELASTINE-FLUTICASONE 137-50 MCG/ACT SUSPENSION 1 PUFF IN EACH NOSTRIL NASALLY TWICE A DAY TAKING EPIPEN 0.3 MG/0.3ML (1:1000) DEVICE 1 PEN INTRAMUSCULAR DAILY NEEDED TAKING FREESTYLE TEST STRIPS 1 STRIP TWICE A DAY NEEDED TAKING FLUCONAZOLE 100 MG TABLET 2 TABS ON DAY 1 ,THEN 1 TAB DAILY ON DAYS 2-10 ORALLY ONCE A DAY TAKING CETIRIZINE HCL 10 MG TABLET 1 TABLET NEEDED ORALLY ONCE A DAY TAKING VITAMIN D 36884 UNIT CAPSULE 1 CAPSULE ORALLY WEEKLY TAKING NICOTINE 21 MG/24HR PATCH 24 HOUR 1 PATCH TO SKIN TRANSDERMAL ONCE A DAY TAKING NICOTROL 10 MG INHALER 1 CARTRIDGE NEEDED INHALATION 16 TIME(S) A DAY TAKING TRAZODONE HCL 150 MG TABLET 1 TABLET AT BEDTIME ORALLY BEFORE BEDTIME TAKING FREESTYLE LANCETS - MISCELLANEOUS 1 LANCET SUBCUTANEOUSLY TWICE A DAY NEEDED BID TAKING MIRTAZAPINE 15 MG TABLET 1 TABLET BEFORE BEDTIME IN THE EVENING ORALLY ONCE A DAY TAKING FLOVENT HFA 44 MCG/ACT AEROSOL INHALE TWO PUFFS BY MOUTH TWICE A DAY INHALATION TWICE A DAY TAKING PRAMIPEXOLE DIHYDROCHLORIDE 0.5 MG TABLET 1 TABLET BEFORE BEDTIME ORALLY 1 TAB IN AM 1 TAB IN PM TAKING LORATADINE 10 MG TABLET 1 TABLET ORALLY ONCE A DAY TAKING MUCINEX 600 MG TABLET EXTENDED RELEASE 1 TABLET NEEDED ORALLY EVERY 12 HRS TAKING GABAPENTIN 600 MG TABLET 1 ORALLY TID TAKING BACLOFEN 10 MG TABLET 1 TABLET WITH FOOD OR MILK ORALLY THREE TIMES A DAY TAKING AMITRIPTYLINE HCL 25 MG TABLET DIRECTED ORALLY BEFORE BEDTIME TAKING FREESTYLE LITE TEST - STRIP DIRECTED IN VITRO BID TAKING VENTOLIN HFA 108 (90 BASE) MCG/ACT AEROSOL SOLUTION 2 PUFFS NEEDED INHALATION EVERY 4 HRS TAKING CYMBALTA 60 MG CAPSULE DELAYED RELEASE PARTICLES 1 CAPSULE ORALLY ONCE A DAY TAKING OXYCODONE HCL 10 MG TABLET 1 TABLET NEEDED ORALLY EVERY 4 - 6 HRS PRN PAIN MDD=4 NOT-TAKING LINZESS 290 MCG CAPSULE 1 CAPSULE ORALLY ONCE A DAY NOT-TAKING LYRICA 75 MG CAPSULE 1 CAPSULE ORALLY TWICE A DAY NOT-TAKING DEPO-PROVERA 150 MG/ML SUSPENSION 1 ML INTRAMUSCULAR Q 3 MONTHS NOT-TAKING FLONASE 50 MCG/ACT SUSPENSION 1 SPRAY IN EACH NOSTRIL NASALLY ONCE A DAY NOT-TAKING NICODERM CQ 21 MG/24HR PATCH 24 HOUR 1 PATCH TO SKIN TRANSDERMAL ONCE A DAY NOT-TAKING CLONAZEPAM 1 MG TABLET 1 TABLET ORALLY TWICE A DAY NOT-TAKING METHOCARBAMOL 750 MG TABLET 1 TABLET ORALLY THREE TIMES DAILY MEDICATION LIST REVIEWED AND RECONCILED WITH THE PATIENT PAST MEDICAL HISTORY CAD - FOLLOWED BY [facility] INTERNAL HEMORRHOIDS T2DM HYPERLIPIDEMIA GERD MIGRAINES HIATAL HERNIA CHRONIC PAIN RESTLESS BODY SYNDROME ARTHRITIS COLONOSCOPY 2018 WITH DROP FOOT LEFT FRACTURE RIGHT KNEE CAP FRACTURED LEGT ELBOW ALLERGIES BEES: ANAPHYLAXIS - ALLERGY ANTI DEPRESANTS: MOOD ALTERATION--MEAN, ANGRY - SIDE EFFECTS ACETAMINOPHEN: N/V - SIDE EFFECTS ASPERTAME: N/V - SIDE EFFECTS HEART CATH DYE: ANAPHYLAXIS - ALLERGY FENTANYL : TASTE CHANGES - SIDE EFFECTS STEROIDS: THRUSH - SIDE EFFECTS IV DYE: ANAPHYLAXIS - ALLERGY SURGICAL HISTORY LATERAL RELEASE OF RIGHT KNEE LEFT KNEE BACK SURGERY LEFT SHOULDER SINUS SURGERY COLONOSCOPY DR. MARTINEZ. HEMORRHOIDS MODERATE 06/[address] [facility] ORDERED BY DR. Esteban ASHLEY, MULTIPLE STENTS, DUE TO UNSTABLE ANGINA 09/12/2017 FAMILY HISTORY FATHER: , PULMONARY FIBROSES MOTHER: , UNKNOWN, DIAGNOSED WITH DIABETES SIBLINGS: ALIVE SON(S): ALIVE DAUGHTER(S): ALIVE 2 SISTER(S) - HEALTHY. 1 SON(S) , 1 DAUGHTER(S) - HEALTHY. SOCIAL HISTORY GENERAL: TOBACCO USE ARE YOU A:CURRENT SMOKER ARE YOU INTERESTED IN QUITTING?READY TO QUIT TAKING NICOTINE PATCH AND NICOTROL INHALER COUNSELED THE PATIENT ON TOBACCO USE, CESSATION [id number]/25/2019 HOW MANY CIGARETTES A DAY DO YOU SMOKE?5 OR LESS HOW SOON AFTER YOU WAKE UP DO YOU SMOKE YOUR FIRST CIGARETTE?6-30 MIN HOW OFTEN DO YOU SMOKE CIGARETTES?EVERY DAY PATIENT COUNSELED ON THE DANGERS OF TOBACCO USE AND URGED TO QUIT:03/01/2019 HIV / HEP-C SCREENING HIV TEST OFFERED TO PATIENT:YES DATE OFFERED:05/02/2017 HEP-C TEST OFFERED TO PATIENT:YES DATE OFFERED:05/02/2017 BROCHURE PROVIDED TO PATIENTNO LANGUAGE LANGUAGES SPOKEN:QATARI DOMESTIC VIOLENCE DO YOU FEEL SAFE IN YOUR ENVIRONMENT?YES RECREATIONAL DRUG USE DRUG USE?NO LEARNING BARRIERS / SPECIAL NEEDS CHANGE FROM LAST VISIT?NO BARRIERS TO LEARNING?YES COMMENTS STATES SHE HAS A 4TH GRADE READING LEVEL HEARING IMPAIRED?NO VISION IMPAIRED?YES COGNITIVELY IMPAIRED?NO :CORRECTIVE LENSES READING GLASSES READINESS TO LEARN?YES LEARNING PREFERENCES?YES :OTHER (PLEASE COMMENT) "LEARNING IT HERSELF OR HEARING IT FROM OTHER PEOPLE" LEARNING CAPABILITIES PRESENT?YES EMOTIONAL BARRIERS?NO SPECIAL DEVICES?YES :CANE VEGETABLE PICKER NEEDED?NO PAIN CLINIC PFS, CLERGY, PUBLIC HEALTH REFERRALS PFS REFERRAL NEEDED?NO CLERGY REFERRAL NEEDED?NO PUBLIC HEALTH REFERRAL NEEDED?NO WAS THE PROVIDER NOTIFIED OF ANY PERTINENT INFO?YES N/A HAS THE PATIENT BEEN EDUCATED REGARDING HIS/HER PLAN OF CARE?YES HAS THE PATIENT BEEN EDUCATED REGARDING PAIN, THE RISK FOR PAIN, THE IMPORTANCE OF EFFECTIVE PAIN MANAGEMENT, AND THE PAIN ASSESSMENT PROCESS?YES LATEX QUESTIONNAIRE LATEX ALLERGY : HAVE YOU EVER DEVELOPED ANY TYPE OF REACTION AFTER HANDLING LATEX PRODUCTS SUCH RUBBER GLOVES, CONDOMS, DIAPHRAGMS, BALLOONS, SOCKS, OR UNDERWEAR?NO LATEX ALLERGY : HAVE YOU EVER DEVELOPED ANY TYPE OF REACTION DURING OR AFTER DENTAL APPOINTMENT, VAGINAL/RECTAL EXAMINATION, SURGICAL PROCEDURE, OR ANY OTHER EXPOSURE?NO LATEX RISK : HAVE YOU EVER HAD ANY DIFFICULTY BREATHING OR HIVES AFTER EATING OR HANDLING ANY FRUITS, OR VEGETABLES; SUCH KIWI, BANANAS, STONE FRUITS, OR CHESTNUTSNO LATEX RISK : DO YOU HAVE A PREVIOUS PERSONAL HISTORY OF MORE THAN NINE SURGERIES, SPINA BIFIDA, OR REPEATED CATHERIZATIONS? NO LATEX RISK : ARE YOU FREQUENTLY EXPOSED TO LATEX PRODUCTS IN YOUR OCCUPATION?NO DATE ASKED : 03/01/2019 CAFFEINE CAFFEINE USE?YES HOW OFTEN AND HOW MUCH? 2 CUPS COFFEE PER DAY ADVANCE DIRECTIVE ADVANCE DIRECTIVE DISCUSSED WITH PATIENT:YES PT DOES NOT HAVE ANY ADVANCED DIRECTIVES AND SHE DECLINES INFORMATION ON HCP AT THIS TIME. QUAKER [id number] NONE NO CONFUCIANISM BELIEFS THAT WOULD IMPACT HEALTH CARE. MARITAL STATUS: SINGLE. ALCOHOL SCREENING DID YOU HAVE A DRINK CONTAINING ALCOHOL IN THE PAST YEAR?NO POINTS0 INTERPRETATIONNEGATIVE SEXUAL HX HAD SEX IN THE LAST 12 MONTHS (VAGINAL, ORAL, OR ANAL)?NO LMP:25 YEARS HAVE YOU EVER HAD AN STD?NO REVIEWED WITH PATIENT 02/02/18 1444 JSREVIEWED WITH PT 07/31/18 1510 BVREVIEWED WITH PATIENT 12/31/18 1323 JSREVIEWED WITH PATIENT 03/01/2019 DS. HOSPITALIZATION/MAJOR DIAGNOSTIC PROCEDURE SURG RELATED REVIEW OF SYSTEMS REVIEWED BY: PROVIDER: ROBERT SAWANT . CONSTITUTIONAL: ANY CHANGE IN YOUR MEDICAL CONDITION? NO . CHILLS NO . FEVER NO . INFECTION: DO YOU HAVE NEW INFECTIONS? NO . DO YOU HAVE HISTORY OF MRSA? NO . MUSCULOSKELETAL: ANY NEW PATTERNS OF PAIN OR NUMBNESS? YES, PT STATES THAT LEGS ACHE, IN GROIN AREA . GASTROENTEROLOGY: ANY NEW CHANGE IN BOWEL CONTROL? NO . GENITOURINARY: ANY NEW CHANGE IN BLADDER CONTROL? YES, PT STATES THAT SHE HAS BEEN HAVING INCONTINENCE . IS THERE A CHANCE YOU COULD BE ? NO . HEMATOLOGY/LYMPH: DO YOU TAKE ANY BLOOD THINNERS? (FOR EXAMPLE- COUMADIN, PLAVIX, AGGRENOX, PLATEL, PRADAXA, OR XARELTO) YES, COUMADIN AND PLAVIX 02/28/2019 . WHEN WAS YOUR LAST DOSE? DATE: TIME: . NEUROLOGY: HAVE YOU FALLEN IN THE PAST 12 MONTHS? YES, PT STATES THAT SHE FELL WHILE AT HOME, BRUISING, NO REPORT TO ED, NO SIGNIFICANT INJURY . ANY NEW EXTREMITY NUMBNESS OR WEAKNESS? YES . CARDIOLOGY: DO YOU HAVE A PACEMAKER OR DEFIBRILLATOR? NO . RESPIRATORY: HAVE YOU BEEN SICK IN THE PAST WEEK? YES, PT STATES THAT SHE HAS BEEN COUGHING, DUE TO COPD AND ASTHMA . FEVER NO . FLU LIKE SYMPTOMS? NO . COUGH NO . INTEGUMENTARY: DO YOU HAVE ANY RASHES OR OPEN SORES? NO . ALLERGIC/IMMUNO: ARE YOU ALLERGIC TO IV DYE? NO . ANY NEW ALLERGIES? NO . PSYCHIATRIC: DO YOU HAVE THOUGHTS OF HURTING YOURSELF OR SOMEONE ELSE? NO . ARE YOU ABUSED, NEGLECTED, OR IN AN UNSAFE ENVIRONMENT? NO . ENDOCRINOLOGY: ARE YOU DIABETIC? YES, MANAGED WITH ORAL MEDS AND DIET . OTHER: DO YOU NEED ANY PRESCRIPTIONS? NO . IF YES, PLEASE LIST: ____ . ANY NEW PROBLEMS WITH YOUR MEDICATIONS? NO . WHEN DID YOU LAST EAT? ____ . WHEN DID YOU LAST DRINK? ____ . WHAT DID YOU LAST DRINK? ____ . NAME OF PERSON DRIVING YOU HOME? ____ . DO YOU HAVE ANY OTHER QUESTIONS OR CONCERNS PT STATES THAT PAIN AND WEAKNESS IS INCREASING, REALLY BAD PAIN. PT HAS REDNESS AND SWELLING IN BILATERAL LOWER EXTREMITIES WITH PITTING EDEMA, ENCOURAGED PT TO NOTIFY PCP, REPORTED TO Yue SRIVASTAVA NP. SOPHIA . VITAL SIGNS WT 247.8 LBS, HT 71 IN, BMI 34.56 INDEX, BP 141/78 MM HG, HR 84 /MIN, RR 16 /MIN, TEMP 98.1 F, OXYGEN SAT % 95, SAFE IN ENV? (Y/N) Y, REVIEWED BY: SOPHIA. EXAMINATION GENERAL EXAMINATION: GENERALNO ACUTE DISTRESS, WELL NOURISHED AND HYDRATED. PSYCHAPPROPRIATE MOOD AND AFFECT . LUNGS:CLEAR TO AUSCULTATION BILATERALLY, NO WHEEZES, RHONCHI, RALES. HEART:NO MURMURS, REGULAR RATE AND RHYTHM. ASSESSMENTS NEUROPATHY - G62.9 (PRIMARY) TREATMENT NEUROPATHY STOP OXYCODONE HCL TABLET, 10 MG, 1 TABLET NEEDED, ORALLY, EVERY 4 - 6 HRS PRN PAIN MDD=4 START MORPHINE SULFATE TABLET, 15 MG, 1 TABLET NEEDED, ORALLY, TID PRN, 30 DAYS, 90 CLINICAL NOTES: 53-YEAR-OLD FEMALE IN FOR CHRONIC PAIN FOLLOW-UP. GIVEN PRESENTING SYMPTOMS AND RESULTS OF PHYSICAL EXAMINATION RECOMMENDED STOPPING OXYCODONE 10 MG AND STARTING MORPHINE 15 MG 1 TABLET 3 TIMES A DAY NEEDED FOR PAIN WITH FOLLOW-UP IN 2 MONTHS TO DETERMINE EFFICACY OF TREATMENT. PATIENT HAS EXPRESSED UNDERSTANDING OF AND WAS IN AGREEMENT WITH TREATMENT PLAN. GIVEN TIME TO ASK QUESTIONS AND EXPRESS CONCERNS., ISTOP REGISTRY REVIEWED AND DEMONSTRATES COMPLLIANCE. (REF # SHE IS ALSO [id number] ) BRINGS IN MEDICATIONS WHICH IS APPROPRIATE FOR WHAT WAS DISPENSED. RECENT URINE TOXICOLOGY REVIEWED. NO UNAUTHORIZED MEDICATIONS. NO ILLICIT SUBSTANCES AND PRESCRIBED MEDICATIONS WERE PRESENT. PREVENTIVE MEDICINE PAIN CLINIC TEACHING: THE PATIENT HAS BEEN EDUCATED REGARDING PAIN, THE RISK FOR PAIN, THE IMPORTANCE OF EFFECTIVE PAIN MANAGEMENT, AND THE PAIN ASSESSMENT PROCESS. : REVIEWED AND DISCUSSED TREATMENT PLAN WITH PATIENT, REVIEWED WRITTEN MATERIAL FOR MORPHINE DOSAGE CHANGE. PT ACKNOWLEGED UNDERSTANDING, DS PROCEDURE CODES [id number] ESTABILISHED PATIENT [facility] CHARGE DISPOSITION & COMMUNICATION FOLLOW UP 2 MONTHS (REASON: NEUROPATHY) ELECTRONICALLY SIGNED BY JULIO BRAMBILA ON 03/04/2019 AT 08:52 AM EST DISCLAIMER : THIS IS A VISIT SUMMARY EXTRACTED FROM THE [employer] CHART. IT IS NOT A COPY OF THE [employer] PROGRESS NOTE. SABASD
== END ==
LOC: M PAIN 13:15
PROVIDERS: ATTEND Family Medicine
DX: G62.9 Polyneuropathy, unspecified (principal)

== ENCOUNTER → 2019-05-31 | Outpatient (CLI) | payer OTHER ==
[~2019-05-31] MED LIST changes: +CYCL-707 PO; -CYCL10TA PO; +OXYC-1 PO; -OXYC15TA76 PO
--- NOTE | 2019-06-04 03:46 | ECWPNPC ---
PATIENT NAME: MIGUEL PICKETT : 1965 GENDER: FEMALE VISIT DATE: 05/31/2019 DISCHARGE DATE: 05/31/19 1210 VISIT LOCKED DATE TIME: PHYSICIAN: BILL SRIVASTAVA RESOURCE: BILL SRIVASTAVA REASON FOR APPOINTMENT 1. [phone] PT DOES NOT HAVE ZOOM CAPABILITY HISTORY OF PRESENT ILLNESS HISTORY OF PRESENT ILLNESS: PAIN THE PATIENT DESCRIBES THE PAIN... PERMISSION REQUESTED AND RECEIVED FOR PATIENT TO PERFORM TELEPHONE VISIT. 54-YEAR-OLD FEMALE IN FOR CHRONIC PAIN FOLLOW-UP. SHE RATES HER PAIN CURRENTLY AT A 9 OUT OF 10 AND DESCRIBES IT ACHING, BURNING, STABBING, AND THROBBING. SHE FEELS HER MEDICATIONS DO HELP SOME ALTHOUGH SHE FURTHER ADMITS THAT THEY JUST TAKE THE EDGE OFF. SHE DENIES MED SIDE EFFECTS THIS TIME. FALL RISK SCREENING: SCREENING :NO FALLS REPORTED IN THE LAST YEAR CURRENT MEDICATIONS TAKING RAMIPRIL 10 MG CAPSULE 1 CAPSULE ORALLY ONCE A DAY TAKING COUMADIN 2 MG TABLET ORALLY 6MG DAILY EXCEPT FOR MONDAY DOSE IS 4 MG TAKING PLAVIX 75 MG TABLET 1 TABLET ORALLY ONCE A DAY TAKING NITROSTAT 0.4 MG TABLET SUBLINGUAL 1 TAB SUBLINGUALLY DIRECTED TAKING ATORVASTATIN CALCIUM 80 MG TABLET 1 TABLET ORALLY ONCE A DAY TAKING METFORMIN HCL ER 500 MG TABLET EXTENDED RELEASE 24 HOUR 1 TABLET WITH EVENING MEAL ORALLY TWICE A DAY TAKING FLUTICASONE PROPIONATE HFA 220 MCG/ACT AEROSOL 1 PUFF INHALATION TWICE A DAY TAKING OMEPRAZOLE 40 MG CAPSULE DELAYED RELEASE 1 CAPSULE ORALLY TWICE A DAY TAKING RANITIDINE HCL 75 MG TABLET 1 TABLET NEEDED ORALLY ONCE A DAY TAKING AZELASTINE-FLUTICASONE 137-50 MCG/ACT SUSPENSION 1 PUFF IN EACH NOSTRIL NASALLY TWICE A DAY TAKING EPIPEN 0.3 MG/0.3ML (1:1000) DEVICE 1 PEN INTRAMUSCULAR DAILY NEEDED TAKING FREESTYLE TEST STRIPS 1 STRIP TWICE A DAY NEEDED TAKING FLUCONAZOLE 100 MG TABLET 2 TABS ON DAY 1 ,THEN 1 TAB DAILY ON DAYS 2-10 ORALLY ONCE A DAY TAKING NICOTINE 21 MG/24HR PATCH 24 HOUR 1 PATCH TO SKIN TRANSDERMAL ONCE A DAY TAKING NICOTROL 10 MG INHALER 1 CARTRIDGE NEEDED INHALATION 16 TIME(S) A DAY TAKING MIRTAZAPINE 15 MG TABLET 1 TABLET BEFORE BEDTIME IN THE EVENING ORALLY ONCE A DAY TAKING FLOVENT HFA 44 MCG/ACT AEROSOL INHALE TWO PUFFS BY MOUTH TWICE A DAY INHALATION TWICE A DAY TAKING LORATADINE 10 MG TABLET 1 TABLET ORALLY ONCE A DAY TAKING FREESTYLE LITE TEST - STRIP DIRECTED IN VITRO BID TAKING VENTOLIN HFA 108 (90 BASE) MCG/ACT AEROSOL SOLUTION 2 PUFFS NEEDED INHALATION EVERY 4 HRS TAKING CYMBALTA 60 MG CAPSULE DELAYED RELEASE PARTICLES 1 CAPSULE ORALLY ONCE A DAY TAKING PRAMIPEXOLE DIHYDROCHLORIDE 0.5 MG TABLET 1 TABLET BEFORE BEDTIME ORALLY 1 TAB IN AM 1 TAB IN PM TAKING FREESTYLE LANCETS - MISCELLANEOUS 1 LANCET SUBCUTANEOUSLY TWICE A DAY NEEDED BID TAKING TRAZODONE HCL 150 MG TABLET 1 TABLET AT BEDTIME ORALLY BEFORE BEDTIME TAKING VITAMIN D 65241 UNIT CAPSULE 1 CAPSULE ORALLY WEEKLY TAKING CETIRIZINE HCL 10 MG TABLET 1 TABLET NEEDED ORALLY ONCE A DAY TAKING METHOCARBAMOL 750 MG TABLET 1 TABLET ORALLY THREE TIMES DAILY TAKING MUCINEX 600 MG TABLET EXTENDED RELEASE 1 TABLET NEEDED ORALLY EVERY 12 HRS TAKING OXYCODONE HCL 10 MG TABLET 1 TABLET NEEDED ORALLY EVERY 4 - 6 HRS PRN PAIN MDD=4 TAKING MONTELUKAST SODIUM 10 MG TABLET 1 TABLET IN THE EVENING ORALLY ONCE A DAY TAKING FOLIC ACID 1 MG TABLET 1 TABLET ORALLY ONCE A DAY TAKING GABAPENTIN 600 MG TABLET 1 ORALLY TID TAKING BACLOFEN 10 MG TABLET 1 TABLET WITH FOOD OR MILK ORALLY THREE TIMES A DAY TAKING AMITRIPTYLINE HCL 25 MG TABLET DIRECTED ORALLY BEFORE BEDTIME TAKING FLONASE 50 MCG/ACT SUSPENSION 1 SPRAY IN EACH NOSTRIL NASALLY ONCE A DAY NOT-TAKING LINZESS 290 MCG CAPSULE 1 CAPSULE ORALLY ONCE A DAY NOT-TAKING LYRICA 75 MG CAPSULE 1 CAPSULE ORALLY TWICE A DAY NOT-TAKING DEPO-PROVERA 150 MG/ML SUSPENSION 1 ML INTRAMUSCULAR Q 3 MONTHS NOT-TAKING NICODERM CQ 21 MG/24HR PATCH 24 HOUR 1 PATCH TO SKIN TRANSDERMAL ONCE A DAY NOT-TAKING CLONAZEPAM 1 MG TABLET 1 TABLET ORALLY TWICE A DAY MEDICATION LIST REVIEWED AND RECONCILED WITH THE PATIENT PAST MEDICAL HISTORY CAD - FOLLOWED BY [facility] INTERNAL HEMORRHOIDS T2DM HYPERLIPIDEMIA GERD MIGRAINES HIATAL HERNIA CHRONIC PAIN RESTLESS BODY SYNDROME ARTHRITIS COLONOSCOPY 2018 WITH DROP FOOT LEFT FRACTURE RIGHT KNEE CAP FRACTURED LEGT ELBOW ALLERGIES BEES: ANAPHYLAXIS - ALLERGY ANTI DEPRESANTS: MOOD ALTERATION--MEAN, ANGRY - SIDE EFFECTS ACETAMINOPHEN: N/V - SIDE EFFECTS ASPERTAME: N/V - SIDE EFFECTS HEART CATH DYE: ANAPHYLAXIS - ALLERGY FENTANYL : TASTE CHANGES - SIDE EFFECTS STEROIDS: THRUSH - SIDE EFFECTS IV DYE: ANAPHYLAXIS - ALLERGY SURGICAL HISTORY LATERAL RELEASE OF RIGHT KNEE LEFT KNEE BACK SURGERY LEFT SHOULDER SINUS SURGERY COLONOSCOPY DR. MARTINEZ. HEMORRHOIDS MODERATE 06/[address] [facility] ORDERED BY DR. Esteban ASHLEY, MULTIPLE STENTS, DUE TO UNSTABLE ANGINA 09/12/2017 FAMILY HISTORY FATHER: , PULMONARY FIBROSES MOTHER: , UNKNOWN, DIAGNOSED WITH DIABETES SIBLINGS: ALIVE SON(S): ALIVE DAUGHTER(S): ALIVE 2 SISTER(S) - HEALTHY. 1 SON(S) , 1 DAUGHTER(S) - HEALTHY. SOCIAL HISTORY GENERAL: TOBACCO USE ARE YOU A:CURRENT SMOKER ARE YOU INTERESTED IN QUITTING?READY TO QUIT TAKING NICOTINE PATCH AND NICOTROL INHALER COUNSELED THE PATIENT ON TOBACCO USE, CESSATION [id number] HOW MANY CIGARETTES A DAY DO YOU SMOKE?5 OR LESS HOW SOON AFTER YOU WAKE UP DO YOU SMOKE YOUR FIRST CIGARETTE?6-30 MIN HOW OFTEN DO YOU SMOKE CIGARETTES?EVERY DAY PATIENT COUNSELED ON THE DANGERS OF TOBACCO USE AND URGED TO QUIT:03/01/2019 LATEX QUESTIONNAIRE LATEX ALLERGY : HAVE YOU EVER DEVELOPED ANY TYPE OF REACTION AFTER HANDLING LATEX PRODUCTS SUCH RUBBER GLOVES, CONDOMS, DIAPHRAGMS, BALLOONS, SOCKS, OR UNDERWEAR?NO LATEX ALLERGY : HAVE YOU EVER DEVELOPED ANY TYPE OF REACTION DURING OR AFTER DENTAL APPOINTMENT, VAGINAL/RECTAL EXAMINATION, SURGICAL PROCEDURE, OR ANY OTHER EXPOSURE?NO DATE ASKED : 03/01/2019 LATEX RISK : HAVE YOU EVER HAD ANY DIFFICULTY BREATHING OR HIVES AFTER EATING OR HANDLING ANY FRUITS, OR VEGETABLES; SUCH KIWI, BANANAS, STONE FRUITS, OR CHESTNUTSNO LATEX RISK : DO YOU HAVE A PREVIOUS PERSONAL HISTORY OF MORE THAN NINE SURGERIES, SPINA BIFIDA, OR REPEATED CATHERIZATIONS? NO LATEX RISK : ARE YOU FREQUENTLY EXPOSED TO LATEX PRODUCTS IN YOUR OCCUPATION?NO ALCOHOL SCREENING DID YOU HAVE A DRINK CONTAINING ALCOHOL IN THE PAST YEAR?NO POINTS0 INTERPRETATIONNEGATIVE RECREATIONAL DRUG USE DRUG USE?NO CAFFEINE CAFFEINE USE?YES HOW OFTEN AND HOW MUCH? 2 CUPS COFFEE PER DAY SEXUAL HX HAD SEX IN THE LAST 12 MONTHS (VAGINAL, ORAL, OR ANAL)?NO LMP:25 YEARS HAVE YOU EVER HAD AN STD?NO HIV / HEP-C SCREENING HIV TEST OFFERED TO PATIENT:YES DATE OFFERED:05/02/2017 HEP-C TEST OFFERED TO PATIENT:YES DATE OFFERED:05/02/2017 BROCHURE PROVIDED TO PATIENTNO RESTORATIONISM [id number] NONE NO RASTAFARI BELIEFS THAT WOULD IMPACT HEALTH CARE. 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 NEW PATIENT PAIN DIARY PATIENT DESCRIBES PAIN :ACHING, BURNING, HAVE IT ALL THE TIME, STABBING, THROBBING 05/31/19 FROM 0-10, WHAT LEVEL IS YOUR PAIN TODAY?9 PRECIPITATING FACTORS ANYTHING, STANDING AND NO SLEEP ALLEVIATING FACTORS NOTHING IMPACT ON FUNCTION YES PAIN CLINIC PFS, CLERGY, PUBLIC HEALTH REFERRALS PFS REFERRAL NEEDED?NO CLERGY REFERRAL NEEDED?NO PUBLIC HEALTH REFERRAL NEEDED?NO WAS THE PROVIDER NOTIFIED OF ANY PERTINENT INFO?YES N/A HAS THE PATIENT BEEN EDUCATED REGARDING HIS/HER PLAN OF CARE?YES HAS THE PATIENT BEEN EDUCATED REGARDING PAIN, THE RISK FOR PAIN, THE IMPORTANCE OF EFFECTIVE PAIN MANAGEMENT, AND THE PAIN ASSESSMENT PROCESS?YES ADVANCE DIRECTIVE ADVANCE DIRECTIVE DISCUSSED WITH PATIENT:YES PT DOES NOT HAVE ANY ADVANCED DIRECTIVES AND SHE DECLINES INFORMATION ON HCP AT THIS TIME. REVIEWED WITH PATIENT 02/02/18 1444 JSREVIEWED WITH PT 07/31/18 1510 BVREVIEWED WITH PATIENT 12/31/18 1323 JSREVIEWED WITH PATIENT 03/01/2019 DS. HOSPITALIZATION/MAJOR DIAGNOSTIC PROCEDURE SURG RELATED REVIEW OF SYSTEMS REVIEWED BY: PROVIDER: ROBERT SRIVASTAVA PHOTOGRAPHER APPRENTICE-Yue . CONSTITUTIONAL: ANY CHANGE IN YOUR MEDICAL CONDITION? NO . CHILLS NO . FEVER NO . INFECTION: DO YOU HAVE NEW INFECTIONS? NO . DO YOU HAVE HISTORY OF MRSA? NO . MUSCULOSKELETAL: ANY NEW PATTERNS OF PAIN OR NUMBNESS? YES CAN'T STAND FOR SHORT PERIODS OF TIME, LEFTY FOOT IS NUMB, BILATERAL LEG WEAKNESS, AND LOW BACK PAIN. . GASTROENTEROLOGY: ANY NEW CHANGE IN BOWEL CONTROL? NO . GENITOURINARY: ANY NEW CHANGE IN BLADDER CONTROL? NO . IS THERE A CHANCE YOU COULD BE ? NO . HEMATOLOGY/LYMPH: DO YOU TAKE ANY BLOOD THINNERS? (FOR EXAMPLE- COUMADIN, PLAVIX, AGGRENOX, PLATEL, PRADAXA, OR XARELTO) COUMADIN AND PLAVIX . WHEN WAS YOUR LAST DOSE? DAILY AT NIGHTIME AT 10 PM . NEUROLOGY: HAVE YOU FALLEN IN THE PAST 12 MONTHS? YES FELL MONDAY BILATERAL LEG WEAKNESS , PT DENIES SEAKING MEDICAL ATTENTION,. . ANY NEW EXTREMITY NUMBNESS OR WEAKNESS? NO . CARDIOLOGY: DO YOU HAVE A PACEMAKER OR DEFIBRILLATOR? NO . RESPIRATORY: HAVE YOU BEEN SICK IN THE PAST WEEK? NO . FEVER NO . FLU LIKE SYMPTOMS? NO . COUGH NO . INTEGUMENTARY: DO YOU HAVE ANY RASHES OR OPEN SORES? NO . ALLERGIC/IMMUNO: ARE YOU ALLERGIC TO IV DYE? YES, . ANY NEW ALLERGIES? NO . PSYCHIATRIC: DO YOU HAVE THOUGHTS OF HURTING YOURSELF OR SOMEONE ELSE? NO . ARE YOU ABUSED, NEGLECTED, OR IN AN UNSAFE ENVIRONMENT? NO . ENDOCRINOLOGY: ARE YOU DIABETIC? YES . OTHER: DO YOU NEED ANY PRESCRIPTIONS? BACLOFEN AND OXYCODONE, NOT SURE OF GABAPENTIN. . IF YES, PLEASE LIST: ____ . ANY NEW PROBLEMS WITH YOUR MEDICATIONS? NO . WHEN DID YOU LAST EAT? ____ . WHEN DID YOU LAST DRINK? ____ . WHAT DID YOU LAST DRINK? ____ . NAME OF PERSON DRIVING YOU HOME? ____ . DO YOU HAVE ANY OTHER QUESTIONS OR CONCERNS NO . EXAMINATION GENERAL EXAMINATION: PSYCHAPPROPRIATE MOOD AND AFFECT , ORIENTED X 3. ASSESSMENTS NEUROPATHY - G62.9 (PRIMARY) MYALGIA, OTHER SITE - M79.18 TREATMENT NEUROPATHY REFILL OXYCODONE HCL TABLET, 10 MG, 1 TABLET NEEDED, ORALLY, EVERY 4 - 6 HRS PRN PAIN MDD=4, 30 DAYS, 120 CLINICAL NOTES: GIVEN PRESENTING SYMPTOMS RECOMMEND INCREASING BACLOFEN TO 20 MG 3 TIMES A DAY WITH FOLLOW-UP IN 2 MONTHS TO DETERMINE EFFICACY OF TREATMENT. PATIENT HAS EXPRESSED UNDERSTANDING OF AND WAS IN AGREEMENT WITH TREATMENT PLAN. GIVEN TIME TO ASK QUESTIONS AND EXPRESS CONCERNS. , [employer] REGISTRY REVIEWED AND DEMONSTRATES COMPLLIANCE. (REF # [id number] ) BRINGS IN MEDICATIONS WHICH IS APPROPRIATE FOR WHAT WAS DISPENSED. RECENT URINE TOXICOLOGY REVIEWED. NO UNAUTHORIZED MEDICATIONS. NO ILLICIT SUBSTANCES AND PRESCRIBED MEDICATIONS WERE PRESENT. VISIT TO BE BILLED BASED ON TIME SPENT WITH PATIENT. TIME SPENT WITH PATIENT 11 MINUTES. MYALGIA, OTHER SITE REFILL BACLOFEN TABLET, 20 MG, 1 TABLET WITH FOOD OR MILK, ORALLY, THREE TIMES A DAY, 30 DAYS, 90 DISPOSITION & COMMUNICATION FOLLOW UP 2 MONTHS (REASON: NEUROPATHY) ELECTRONICALLY SIGNED BY JULIO BRAMBILA ON 06/03/2019 AT 10:03 AM EDT DISCLAIMER : THIS IS A VISIT SUMMARY EXTRACTED FROM THE [employer] CHART. IT IS NOT A COPY OF THE [employer] PROGRESS NOTE. SABASD
== END ==
LOC: M PAIN 11:30
PROVIDERS: ATTEND Family Medicine
DX: G62.9 Polyneuropathy, unspecified (principal); M79.18 Myalgia, other site; F17.210 Nicotine dependence, cigarettes, uncomplicated; I10 Essential (primary) hypertension; E11.9 Type 2 diabetes mellitus without complications; Z79.84 Long term (current) use of oral hypoglycemic drugs; Z79.891 Long term (current) use of opiate analgesic; Z79.899 Other long term (current) drug therapy; Z88.8 Allergy status to other drugs, medicaments and biological substances; Z91.030 Bee allergy status; Z91.041 Radiographic dye allergy status

== ENCOUNTER → 2019-08-05 | Outpatient (CLI) | payer OTHER ==
[~2019-08-05] MED LIST changes: -COUM1TAB14 PO; +COUM4TAB8 PO; -COUM6TAB PO; +COUM6TAB10 PO
--- NOTE | 2019-08-07 04:19 | ECWPNPC ---
PATIENT NAME: MIGUEL PICKETT : 1965 GENDER: FEMALE VISIT DATE: 08/05/2019 DISCHARGE DATE: 08/05/19 1505 VISIT LOCKED DATE TIME: PHYSICIAN: BILL SRIVASTAVA RESOURCE: BILL SRIVASTAVA REASON FOR APPOINTMENT 1. NEUROPATHY HISTORY OF PRESENT ILLNESS GENERAL: - 54-YEAR-OLD FEMALE IN FOR CHRONIC PAIN FOLLOW-UP. SHE RATES HER PAIN CURRENTLY AT AN 8 OUT OF 10 AND DESCRIBES IT ACHING, CONTINUOUS, SHARP, AND STABBING. PATIENT FEELS HER MEDICATIONS ARE WORKING WELL AND DENIES MED SIDE EFFECTS AT THIS TIME. FALL RISK SCREENING: SCREENING :TWO OR MORE FALLS WITHOUT INJURY IN THE PAST YEAR PAIN SCREENING: PATIENT HAS A COMPLAINT OF ACUTE OR CHRONIC PAIN :YES LOCATION OF PAIN:LOW BACK, LEFT HIP, RIGHT HIP, LEG(S) INTENSITY OF PAIN (SCALE OF 1 TO 10):8 WHAT DOES YOUR PAIN FEEL LIKE:ACHING, CONTINOUS, SHARP, STABBING DURATION:CONTINOUS, CONSTANT, ALL DAY PAIN IS INCREASED BY:ACTIVITIES, PROLONGED STANDING PAIN IS DECREASED BY:USE OF PAIN MEDICATIONS PAIN HAS INTERFERED WITH THE FOLLOWING:MOOD, WALKING ABILITY, HOUSEWORK, RELATIONSHIP WITH OTHERS, ENJOYMENT OF LIFE PLAN/GOALS/TREATMENT/INTERVENTION/FOLLOW UP:SEE PLAN NURSING NOTE: -. PAIN CENTER INTAKE QUESTIONS: DO YOU HAVE A HISTORY OF MRSA? :NO DO YOU TAKE A BLOOD THINNERS? :NO DO YOU HAVE ANY BLEEDING DISORDERS? :NO ANY NEW NUMBNESS OR WEAKNESS IN YOUR LEGS OR ARMS? :NO ANY PACEMAKER,DEFIBRILLATOR, OR DORSAL COLUMN STIMULATOR? :NO DO YOU HAVE ANY RASHES OR OPEN SORES? :NO ARE YOU ALLERGIC TO IV DYE? :YES ARE YOU DIABETIC? :YES ANY NEW PROBLEMS WITH YOUR MEDICATIONS? :NO HAVE YOU RECEIVED A VACCINE IN THE PAST 30 DAYS? :NO DO YOU PLAN TO RECEIVE A VACCINE IN THE NEXT 21 DAYS? :NO DO YOU NEED ANY PRESCRIPTION? :NO DO YOU TAKE ANY IMMUNOSUPPRESSIVE MEDICATIONS? :NO IS THERE A CHANCE YOU COULD BE ? :NO ARE YOU BREAST FEEDING? :NO CURRENT MEDICATIONS TAKING RAMIPRIL 10 MG CAPSULE 1 CAPSULE ORALLY ONCE A DAY TAKING COUMADIN 2 MG TABLET ORALLY 6MG DAILY EXCEPT FOR MONDAY DOSE IS 4 MG TAKING PLAVIX 75 MG TABLET 1 TABLET ORALLY ONCE A DAY TAKING NITROSTAT 0.4 MG TABLET SUBLINGUAL 1 TAB SUBLINGUALLY DIRECTED TAKING ATORVASTATIN CALCIUM 80 MG TABLET 1 TABLET ORALLY ONCE A DAY TAKING METFORMIN HCL ER 500 MG TABLET EXTENDED RELEASE 24 HOUR 1 TABLET WITH EVENING MEAL ORALLY TWICE A DAY TAKING FLUTICASONE PROPIONATE HFA 220 MCG/ACT AEROSOL 1 PUFF INHALATION TWICE A DAY TAKING RANITIDINE HCL 75 MG TABLET 1 TABLET NEEDED ORALLY ONCE A DAY TAKING AZELASTINE-FLUTICASONE 137-50 MCG/ACT SUSPENSION 1 PUFF IN EACH NOSTRIL NASALLY TWICE A DAY TAKING EPIPEN 0.3 MG/0.3ML (1:1000) DEVICE 1 PEN INTRAMUSCULAR DAILY NEEDED TAKING FREESTYLE TEST STRIPS 1 STRIP TWICE A DAY NEEDED TAKING FLUCONAZOLE 100 MG TABLET 2 TABS ON DAY 1 ,THEN 1 TAB DAILY ON DAYS 2-10 ORALLY ONCE A DAY TAKING NICOTINE 21 MG/24HR PATCH 24 HOUR 1 PATCH TO SKIN TRANSDERMAL ONCE A DAY TAKING NICOTROL 10 MG INHALER 1 CARTRIDGE NEEDED INHALATION 16 TIME(S) A DAY TAKING MIRTAZAPINE 15 MG TABLET 1 TABLET BEFORE BEDTIME IN THE EVENING ORALLY ONCE A DAY TAKING FLOVENT HFA 44 MCG/ACT AEROSOL INHALE TWO PUFFS BY MOUTH TWICE A DAY INHALATION TWICE A DAY TAKING FREESTYLE LITE TEST - STRIP DIRECTED IN VITRO BID TAKING VENTOLIN HFA 108 (90 BASE) MCG/ACT AEROSOL SOLUTION 2 PUFFS NEEDED INHALATION EVERY 4 HRS TAKING CYMBALTA 60 MG CAPSULE DELAYED RELEASE PARTICLES 1 CAPSULE ORALLY ONCE A DAY TAKING FREESTYLE LANCETS - MISCELLANEOUS 1 LANCET SUBCUTANEOUSLY TWICE A DAY NEEDED BID TAKING TRAZODONE HCL 150 MG TABLET 1 TABLET AT BEDTIME ORALLY BEFORE BEDTIME TAKING VITAMIN D [id number] UNIT CAPSULE 1 CAPSULE ORALLY WEEKLY TAKING CETIRIZINE HCL 10 MG TABLET 1 TABLET NEEDED ORALLY ONCE A DAY TAKING METHOCARBAMOL 750 MG TABLET 1 TABLET ORALLY THREE TIMES DAILY TAKING MUCINEX 600 MG TABLET EXTENDED RELEASE 1 TABLET NEEDED ORALLY EVERY 12 HRS TAKING MONTELUKAST SODIUM 10 MG TABLET 1 TABLET IN THE EVENING ORALLY ONCE A DAY TAKING FOLIC ACID 1 MG TABLET 1 TABLET ORALLY ONCE A DAY TAKING AMITRIPTYLINE HCL 25 MG TABLET DIRECTED ORALLY BEFORE BEDTIME TAKING FLONASE 50 MCG/ACT SUSPENSION 1 SPRAY IN EACH NOSTRIL NASALLY ONCE A DAY TAKING NICODERM CQ 21 MG/24HR PATCH 24 HOUR 1 PATCH TO SKIN TRANSDERMAL ONCE A DAY TAKING OMEPRAZOLE 40 MG CAPSULE DELAYED RELEASE 1 CAPSULE ORALLY TWICE A DAY TAKING PRAMIPEXOLE DIHYDROCHLORIDE 0.5 MG TABLET 1 TABLET BEFORE BEDTIME ORALLY 1 TAB IN AM 1 TAB IN PM TAKING LORATADINE 10 MG TABLET 1 TABLET ORALLY ONCE A DAY TAKING BACLOFEN 20 MG TABLET 1 TABLET WITH FOOD OR MILK ORALLY THREE TIMES A DAY TAKING GABAPENTIN 600 MG TABLET 1 ORALLY TID TAKING OXYCODONE HCL 10 MG TABLET 1 TABLET NEEDED ORALLY EVERY 4 - 6 HRS PRN PAIN MDD=4 NOT-TAKING LINZESS 290 MCG CAPSULE 1 CAPSULE ORALLY ONCE A DAY NOT-TAKING LYRICA 75 MG CAPSULE 1 CAPSULE ORALLY TWICE A DAY NOT-TAKING DEPO-PROVERA 150 MG/ML SUSPENSION 1 ML INTRAMUSCULAR Q 3 MONTHS NOT-TAKING CLONAZEPAM 1 MG TABLET 1 TABLET ORALLY TWICE A DAY MEDICATION LIST REVIEWED AND RECONCILED WITH THE PATIENT PAST MEDICAL HISTORY CAD - FOLLOWED BY [facility] INTERNAL HEMORRHOIDS T2DM HYPERLIPIDEMIA GERD MIGRAINES HIATAL HERNIA CHRONIC PAIN RESTLESS BODY SYNDROME ARTHRITIS COLONOSCOPY 2018 WITH DROP FOOT LEFT FRACTURE RIGHT KNEE CAP FRACTURED LEGT ELBOW ALLERGIES BEES: ANAPHYLAXIS - ALLERGY ANTI DEPRESANTS: MOOD ALTERATION--MEAN, ANGRY - SIDE EFFECTS ACETAMINOPHEN: N/V - SIDE EFFECTS ASPERTAME: N/V - SIDE EFFECTS HEART CATH DYE: ANAPHYLAXIS - ALLERGY FENTANYL : TASTE CHANGES - SIDE EFFECTS STEROIDS: THRUSH - SIDE EFFECTS IV DYE: ANAPHYLAXIS - ALLERGY SURGICAL HISTORY LATERAL RELEASE OF RIGHT KNEE LEFT KNEE BACK SURGERY LEFT SHOULDER SINUS SURGERY COLONOSCOPY DR. MARTINEZ. HEMORRHOIDS MODERATE 06/[address] [facility] ORDERED BY DR. Esteban ASHLEY, MULTIPLE STENTS, DUE TO UNSTABLE ANGINA 09/12/2017 FAMILY HISTORY FATHER: , PULMONARY FIBROSES MOTHER: , UNKNOWN, DIAGNOSED WITH DIABETES SIBLINGS: ALIVE SON(S): ALIVE DAUGHTER(S): ALIVE 2 SISTER(S) - HEALTHY. 1 SON(S) , 1 DAUGHTER(S) - HEALTHY. SOCIAL HISTORY GENERAL: TOBACCO USE ARE YOU A:CURRENT SMOKER ARE YOU INTERESTED IN QUITTING?READY TO QUIT TAKING NICOTINE PATCH AND NICOTROL INHALER COUNSELED THE PATIENT ON TOBACCO USE, CESSATION [id number]/29/2020 HOW MANY CIGARETTES A DAY DO YOU SMOKE?5 OR LESS HOW SOON AFTER YOU WAKE UP DO YOU SMOKE YOUR FIRST CIGARETTE?6-30 MIN HOW OFTEN DO YOU SMOKE CIGARETTES?EVERY DAY PATIENT COUNSELED ON THE DANGERS OF TOBACCO USE AND URGED TO QUIT:08/05/2019 SMOKING CESSATION INFORMATION GIVEN08/05/2019 LATEX QUESTIONNAIRE LATEX ALLERGY : HAVE YOU EVER DEVELOPED ANY TYPE OF REACTION AFTER HANDLING LATEX PRODUCTS SUCH RUBBER GLOVES, CONDOMS, DIAPHRAGMS, BALLOONS, SOCKS, OR UNDERWEAR?NO LATEX ALLERGY : HAVE YOU EVER DEVELOPED ANY TYPE OF REACTION DURING OR AFTER DENTAL APPOINTMENT, VAGINAL/RECTAL EXAMINATION, SURGICAL PROCEDURE, OR ANY OTHER EXPOSURE?NO LATEX RISK : HAVE YOU EVER HAD ANY DIFFICULTY BREATHING OR HIVES AFTER EATING OR HANDLING ANY FRUITS, OR VEGETABLES; SUCH KIWI, BANANAS, STONE FRUITS, OR CHESTNUTSNO LATEX RISK : DO YOU HAVE A PREVIOUS PERSONAL HISTORY OF MORE THAN NINE SURGERIES, SPINA BIFIDA, OR REPEATED CATHERIZATIONS? NO LATEX RISK : ARE YOU FREQUENTLY EXPOSED TO LATEX PRODUCTS IN YOUR OCCUPATION?NO DATE ASKED : 08/05/2019 ALCOHOL SCREENING DID YOU HAVE A DRINK CONTAINING ALCOHOL IN THE PAST YEAR?NO POINTS0 INTERPRETATIONNEGATIVE RECREATIONAL DRUG USE DRUG USE?NO CAFFEINE CAFFEINE USE?YES HOW OFTEN AND HOW MUCH? 2 CUPS COFFEE PER DAY SEXUAL HX HAD SEX IN THE LAST 12 MONTHS (VAGINAL, ORAL, OR ANAL)?NO LMP:25 YEARS HAVE YOU EVER HAD AN STD?NO HIV / HEP-C SCREENING HIV TEST OFFERED TO PATIENT:YES DATE OFFERED:05/02/2017 HEP-C TEST OFFERED TO PATIENT:YES DATE OFFERED:05/02/2017 BROCHURE PROVIDED TO PATIENTNO GNOSTICIST [id number] NONE NO HINDUISM BELIEFS THAT WOULD IMPACT HEALTH CARE. LANGUAGE LANGUAGES SPOKEN:LUXEMBOURGER LEARNING BARRIERS / SPECIAL NEEDS CHANGE FROM LAST VISIT?NO BARRIERS TO LEARNING?YES COMMENTS STATES SHE HAS A 4TH GRADE READING LEVEL HEARING IMPAIRED?NO VISION IMPAIRED?YES COGNITIVELY IMPAIRED?NO :CORRECTIVE LENSES READING GLASSES READINESS TO LEARN?YES LEARNING PREFERENCES?YES :OTHER (PLEASE COMMENT) "LEARNING IT HERSELF OR HEARING IT FROM OTHER PEOPLE" LEARNING CAPABILITIES PRESENT?YES EMOTIONAL BARRIERS?NO SPECIAL DEVICES?YES :CANE DATA VISUALIZATION DEVELOPER NEEDED?NO DOMESTIC VIOLENCE DO YOU FEEL SAFE IN YOUR ENVIRONMENT?YES MARITAL STATUS: SINGLE. NEW PATIENT PAIN DIARY PATIENT DESCRIBES PAIN :ACHING, BURNING, HAVE IT ALL THE TIME, STABBING, THROBBING 05/31/19 FROM 0-10, WHAT LEVEL IS YOUR PAIN TODAY?9 PRECIPITATING FACTORS ANYTHING, STANDING AND NO SLEEP ALLEVIATING FACTORS NOTHING IMPACT ON FUNCTION YES PAIN CLINIC PFS, CLERGY, PUBLIC HEALTH REFERRALS PFS REFERRAL NEEDED?NO CLERGY REFERRAL NEEDED?NO PUBLIC HEALTH REFERRAL NEEDED?NO WAS THE PROVIDER NOTIFIED OF ANY PERTINENT INFO?YES N/A HAS THE PATIENT BEEN EDUCATED REGARDING HIS/HER PLAN OF CARE?YES HAS THE PATIENT BEEN EDUCATED REGARDING PAIN, THE RISK FOR PAIN, THE IMPORTANCE OF EFFECTIVE PAIN MANAGEMENT, AND THE PAIN ASSESSMENT PROCESS?YES ADVANCE DIRECTIVE ADVANCE DIRECTIVE DISCUSSED WITH PATIENT:YES PT DOES NOT HAVE ANY ADVANCED DIRECTIVES AND SHE DECLINES INFORMATION ON HCP AT THIS TIME. HOSPITALIZATION/MAJOR DIAGNOSTIC PROCEDURE SURG RELATED REVIEW OF SYSTEMS CONSTITUTIONAL: ANY RECENT FEVER NO . CHILLS NO . WEIGHT CHANGE OF UNKNOWN REASONS NO . GASTROENTEROLOGY: NEW UNEXPLAINABLE CHANGES IN BOWEL CONTROL NO . CONSTIPATION NO . GENITOURINARY: ANY NEW CHANGE IN BLADDER CONTROL? NO . NEUROLOGY: NEW ONSET DIZZINESS OR NEUROLOGICAL CHANGES NOT MENTIONED NO . NEW NUMBNESS OR PAIN PATTERNS NOT MENTIONED AND PERTINENT TO TODAY'S VISIT NO . CARDIOLOGY: NEW CHEST PRESSURE NO . NEW CHEST PAIN NO . RESPIRATORY: UNEXPLAINABLE COUGH NO . NEW SHORTNESS OF BREATH NO . VITAL SIGNS WT 232.8 LBS, HT 71 IN, BMI 32.47 INDEX, BP 136/63 MM HG, HR 78 /MIN, RR 18 /MIN, TEMP 97.7 F, OXYGEN SAT % 93%, NA INITIALS AW 1428. EXAMINATION GENERAL EXAMINATION: GENERALNO ACUTE DISTRESS, WELL NOURISHED AND HYDRATED. PSYCHAPPROPRIATE MOOD AND AFFECT . LUNGS:DECREASED BILATERALLY . HEART:NO MURMURS, REGULAR RATE AND RHYTHM. ASSESSMENTS POST LAMINECTOMY SYNDROME - M96.1 (PRIMARY) NEUROPATHY - G62.9 TREATMENT POST LAMINECTOMY SYNDROME CLINICAL NOTES: 54-YEAR-OLD FEMALE IN FOR CHRONIC PAIN FOLLOW-UP. GIVEN PRESENTING SYMPTOMS RECOMMENDED CONTINUATION OF CURRENT MEDICATION REGIMEN WITH FOLLOW-UP IN 3 MONTHS. PATIENT HAS EXPRESSED UNDERSTANDING OF AND WAS IN AGREEMENT WITH TREATMENT PLAN. GIVEN TIME TO ASK QUESTIONS AND EXPRESS CONCERNS. , ISTOP REGISTRY REVIEWED AND DEMONSTRATES COMPLLIANCE. (REF # [id number] ) BRINGS IN MEDICATIONS WHICH IS APPROPRIATE FOR WHAT WAS DISPENSED. RECENT URINE TOXICOLOGY REVIEWED. NO UNAUTHORIZED MEDICATIONS. NO ILLICIT SUBSTANCES AND PRESCRIBED MEDICATIONS WERE PRESENT. PROCEDURE CODES FA211 ESTABILISHED PATIENT [facility] CHARGE DISPOSITION & COMMUNICATION FOLLOW UP 3 MONTHS (REASON: NEUROPATHY, BACK PAIN) ELECTRONICALLY SIGNED BY JULIO BRAMBILA ON 08/06/2019 AT 08:35 AM EDT DISCLAIMER : THIS IS A VISIT SUMMARY EXTRACTED FROM THE [employer] CHART. IT IS NOT A COPY OF THE [employer] PROGRESS NOTE. MTDD
== END ==
LOC: M PAIN 14:15
PROVIDERS: ATTEND Family Medicine
DX: M96.1 Postlaminectomy syndrome, not elsewhere classified (principal); G62.9 Polyneuropathy, unspecified

== ENCOUNTER → 2019-12-03 | Outpatient (CLI) | payer OTHER ==
[~2019-12-03] MED LIST changes: -ASPI81TA85 PO; +ASPI81TA86 PO
--- NOTE | 2019-12-05 00:49 | ECWPNPC ---
PATIENT NAME: MIGUEL PICKETT : 1965 GENDER: FEMALE VISIT DATE: 12/03/2019 DISCHARGE DATE: 12/03/19 1511 VISIT LOCKED DATE TIME: PHYSICIAN: BILL SRIVASTAVA PHYSICIAN PAGER NO: ACTIVE RESOURCE: BILL SRIVASTAVA REASON FOR APPOINTMENT 1. NEUROPATHY-BACK HISTORY OF PRESENT ILLNESS GENERAL: - 54-YEAR-OLD FEMALE IN FOR CHRONIC PAIN FOLLOW-UP. SHE RATES HER PAIN CURRENTLY AT A 10 OUT OF 10 AND DESCRIBES IT ACHING, BURNING, STABBING, THROBBING, NUMBNESS IN THE LEFT FOOT. PATIENT FEELS HER MEDICATIONS ARE HELPFUL BUT DOES ADMIT TO INCREASED PAIN RECENTLY. FALL RISK SCREENING: SCREENING :TWO OR MORE FALLS WITH INJURY IN THE PAST YEAR MULTIPLE FALLS, BRUISING, NO REPORT TO ED PAIN SCREENING: PATIENT HAS A COMPLAINT OF ACUTE OR CHRONIC PAIN :YES LOCATION OF PAIN:OTHER: GENERALIZED PAIN, HEAD TO TOE INTENSITY OF PAIN (SCALE OF 1 TO 10):10 WHAT DOES YOUR PAIN FEEL LIKE:ACHING, BURNING, STABBING, THROBBING, OTHER NUMBNESS IN LEFT FOOT DURATION:CONTINOUS, ALL DAY PAIN IS INCREASED BY:ACTIVITIES, PROLONGED STANDING PAIN IS DECREASED BY: NOTHING NURSING NOTE: -. PAIN CENTER INTAKE QUESTIONS: DO YOU HAVE A HISTORY OF MRSA? :NO DO YOU TAKE A BLOOD THINNERS? :YES ELQUIS AND PLAVIX DO YOU HAVE ANY BLEEDING DISORDERS? :NO ANY NEW NUMBNESS OR WEAKNESS IN YOUR LEGS OR ARMS? :YES LEGS, HIPS, ARMS, BURNING SENSATION ANY PACEMAKER,DEFIBRILLATOR, OR DORSAL COLUMN STIMULATOR? :NO DO YOU HAVE ANY RASHES OR OPEN SORES? :NO ARE YOU ALLERGIC TO IV DYE? :YES ARE YOU DIABETIC? :YES MANAGED WITH ORAL MEDS ANY NEW PROBLEMS WITH YOUR MEDICATIONS? :NO HAVE YOU RECEIVED A VACCINE IN THE PAST 30 DAYS? :NO DO YOU PLAN TO RECEIVE A VACCINE IN THE NEXT 21 DAYS? :NO DO YOU NEED ANY PRESCRIPTION? :YES BACLOFEN AND OXYCODONE DO YOU TAKE ANY IMMUNOSUPPRESSIVE MEDICATIONS? :NO IS THERE A CHANCE YOU COULD BE ? :NO ARE YOU BREAST FEEDING? :NO CURRENT MEDICATIONS TAKING RAMIPRIL 10 MG CAPSULE 1 CAPSULE ORALLY ONCE A DAY TAKING PLAVIX 75 MG TABLET 1 TABLET ORALLY ONCE A DAY TAKING NITROSTAT 0.4 MG TABLET SUBLINGUAL 1 TAB SUBLINGUALLY DIRECTED TAKING ATORVASTATIN CALCIUM 80 MG TABLET 1 TABLET ORALLY ONCE A DAY TAKING METFORMIN HCL ER 500 MG TABLET EXTENDED RELEASE 24 HOUR 1 TABLET WITH EVENING MEAL ORALLY TWICE A DAY TAKING FLUTICASONE PROPIONATE HFA 220 MCG/ACT AEROSOL 1 PUFF INHALATION TWICE A DAY TAKING RANITIDINE HCL 75 MG TABLET 1 TABLET NEEDED ORALLY ONCE A DAY TAKING AZELASTINE-FLUTICASONE 137-50 MCG/ACT SUSPENSION 1 PUFF IN EACH NOSTRIL NASALLY TWICE A DAY TAKING EPIPEN 0.3 MG/0.3ML (1:1000) DEVICE 1 PEN INTRAMUSCULAR DAILY NEEDED TAKING FREESTYLE TEST STRIPS 1 STRIP TWICE A DAY NEEDED TAKING FLUCONAZOLE 100 MG TABLET 2 TABS ON DAY 1 ,THEN 1 TAB DAILY ON DAYS 2-10 ORALLY ONCE A DAY TAKING NICOTINE 21 MG/24HR PATCH 24 HOUR 1 PATCH TO SKIN TRANSDERMAL ONCE A DAY TAKING NICOTROL 10 MG INHALER 1 CARTRIDGE NEEDED INHALATION 16 TIME(S) A DAY TAKING MIRTAZAPINE 30 MG TABLET 1 TABLET BEFORE BEDTIME IN THE EVENING ORALLY ONCE A DAY TAKING FLOVENT HFA 44 MCG/ACT AEROSOL INHALE TWO PUFFS BY MOUTH TWICE A DAY INHALATION TWICE A DAY TAKING FREESTYLE LITE TEST - STRIP DIRECTED IN VITRO BID TAKING CYMBALTA 60 MG CAPSULE DELAYED RELEASE PARTICLES 1 CAPSULE ORALLY ONCE A DAY TAKING FREESTYLE LANCETS - MISCELLANEOUS 1 LANCET SUBCUTANEOUSLY TWICE A DAY NEEDED BID TAKING TRAZODONE HCL 150 MG TABLET 1 TABLET AT BEDTIME ORALLY BEFORE BEDTIME TAKING VITAMIN D 20597 UNIT CAPSULE 1 CAPSULE ORALLY WEEKLY TAKING CETIRIZINE HCL 10 MG TABLET 1 TABLET NEEDED ORALLY ONCE A DAY TAKING METHOCARBAMOL 750 MG TABLET 1 TABLET ORALLY THREE TIMES DAILY TAKING MONTELUKAST SODIUM 10 MG TABLET 1 TABLET IN THE EVENING ORALLY ONCE A DAY TAKING FOLIC ACID 1 MG TABLET 1 TABLET ORALLY ONCE A DAY TAKING AMITRIPTYLINE HCL 25 MG TABLET DIRECTED ORALLY BEFORE BEDTIME TAKING NICODERM CQ 21 MG/24HR PATCH 24 HOUR 1 PATCH TO SKIN TRANSDERMAL ONCE A DAY TAKING OMEPRAZOLE 40 MG CAPSULE DELAYED RELEASE 1 CAPSULE ORALLY TWICE A DAY TAKING PRAMIPEXOLE DIHYDROCHLORIDE 0.5 MG TABLET 1 TABLET BEFORE BEDTIME ORALLY 1 TAB IN AM 1 TAB IN PM TAKING LORATADINE 10 MG TABLET 1 TABLET ORALLY ONCE A DAY TAKING GABAPENTIN 600 MG TABLET 1 ORALLY TID TAKING VENTOLIN HFA 108 (90 BASE) MCG/ACT AEROSOL SOLUTION 2 PUFFS NEEDED INHALATION EVERY 4 HRS TAKING MUCINEX 600 MG TABLET EXTENDED RELEASE 1 TABLET NEEDED ORALLY EVERY 12 HRS TAKING BACLOFEN 20 MG TABLET 1 TABLET WITH FOOD OR MILK ORALLY THREE TIMES A DAY TAKING OXYCODONE HCL 10 MG TABLET 1 TABLET NEEDED ORALLY EVERY 4 - 6 HRS PRN PAIN MDD=4 TAKING FLONASE 50 MCG/ACT SUSPENSION 1 SPRAY IN EACH NOSTRIL NASALLY ONCE A DAY TAKING CARISOPRODOL 350 MG TABLET 1 TABLET NEEDED ORALLY FOUR TIMES A DAY TAKING ALOGLIPTIN BENZOATE 12.5 MG TABLET 2 TABLETS ORALLY ONCE A DAY TAKING AMITIZA 8 MCG CAPSULE 1 CAPSULE WITH FOOD AND WATER ORALLY TWICE A DAY NOT-TAKING COUMADIN 2 MG TABLET ORALLY 6MG DAILY EXCEPT FOR MONDAY DOSE IS 4 MG NOT-TAKING LINZESS 290 MCG CAPSULE 1 CAPSULE ORALLY ONCE A DAY NOT-TAKING LYRICA 75 MG CAPSULE 1 CAPSULE ORALLY TWICE A DAY NOT-TAKING DEPO-PROVERA 150 MG/ML SUSPENSION 1 ML INTRAMUSCULAR Q 3 MONTHS NOT-TAKING CLONAZEPAM 1 MG TABLET 1 TABLET ORALLY TWICE A DAY MEDICATION LIST REVIEWED AND RECONCILED WITH THE PATIENT PAST MEDICAL HISTORY CAD - FOLLOWED BY [facility] INTERNAL HEMORRHOIDS T2DM HYPERLIPIDEMIA GERD MIGRAINES HIATAL HERNIA CHRONIC PAIN RESTLESS BODY SYNDROME ARTHRITIS COLONOSCOPY 2018 WITH DROP FOOT LEFT FRACTURE RIGHT KNEE CAP FRACTURED LEGT ELBOW FIBROMYALGIA ALLERGIES BEES: ANAPHYLAXIS - ALLERGY ANTI DEPRESANTS: MOOD ALTERATION--MEAN, ANGRY - SIDE EFFECTS ACETAMINOPHEN: N/V - SIDE EFFECTS ASPERTAME: N/V - SIDE EFFECTS HEART CATH DYE: ANAPHYLAXIS - ALLERGY FENTANYL : TASTE CHANGES - SIDE EFFECTS STEROIDS: THRUSH - SIDE EFFECTS IV DYE: ANAPHYLAXIS - ALLERGY SURGICAL HISTORY LATERAL RELEASE OF RIGHT KNEE LEFT KNEE BACK SURGERY LEFT SHOULDER SINUS SURGERY COLONOSCOPY DR. MARTINEZ. HEMORRHOIDS MODERATE 06/[address] [facility] ORDERED BY DR. Esteban ASHLEY, MULTIPLE STENTS, DUE TO UNSTABLE ANGINA 09/12/2017 FAMILY HISTORY FATHER: , PULMONARY FIBROSES MOTHER: , UNKNOWN, DIAGNOSED WITH DIABETES SIBLINGS: ALIVE SON(S): ALIVE DAUGHTER(S): ALIVE 2 SISTER(S) - HEALTHY. 1 SON(S) , 1 DAUGHTER(S) - HEALTHY. SOCIAL HISTORY GENERAL: TOBACCO USE ARE YOU A:CURRENT SMOKER ARE YOU INTERESTED IN QUITTING?READY TO QUIT TAKING NICOTINE PATCH AND NICOTROL INHALER COUNSELED THE PATIENT ON TOBACCO USE, CESSATION [id number]/27/2020 HOW MANY CIGARETTES A DAY DO YOU SMOKE?5 OR LESS HOW SOON AFTER YOU WAKE UP DO YOU SMOKE YOUR FIRST CIGARETTE?6-30 MIN HOW OFTEN DO YOU SMOKE CIGARETTES?EVERY DAY PATIENT COUNSELED ON THE DANGERS OF TOBACCO USE AND URGED TO QUIT:12/03/2019 SMOKING CESSATION INFORMATION GIVEN08/05/2019 LATEX QUESTIONNAIRE LATEX ALLERGY : HAVE YOU EVER DEVELOPED ANY TYPE OF REACTION AFTER HANDLING LATEX PRODUCTS SUCH RUBBER GLOVES, CONDOMS, DIAPHRAGMS, BALLOONS, SOCKS, OR UNDERWEAR?NO LATEX ALLERGY : HAVE YOU EVER DEVELOPED ANY TYPE OF REACTION DURING OR AFTER DENTAL APPOINTMENT, VAGINAL/RECTAL EXAMINATION, SURGICAL PROCEDURE, OR ANY OTHER EXPOSURE?NO LATEX RISK : HAVE YOU EVER HAD ANY DIFFICULTY BREATHING OR HIVES AFTER EATING OR HANDLING ANY FRUITS, OR VEGETABLES; SUCH KIWI, BANANAS, STONE FRUITS, OR CHESTNUTSNO LATEX RISK : DO YOU HAVE A PREVIOUS PERSONAL HISTORY OF MORE THAN NINE SURGERIES, SPINA BIFIDA, OR REPEATED CATHERIZATIONS? NO LATEX RISK : ARE YOU FREQUENTLY EXPOSED TO LATEX PRODUCTS IN YOUR OCCUPATION?NO DATE ASKED : 12/03/2019 ALCOHOL SCREENING DID YOU HAVE A DRINK CONTAINING ALCOHOL IN THE PAST YEAR?NO POINTS0 INTERPRETATIONNEGATIVE RECREATIONAL DRUG USE DRUG USE?NO CAFFEINE CAFFEINE USE?YES HOW OFTEN AND HOW MUCH? 2 CUPS COFFEE PER DAY SEXUAL HX HAD SEX IN THE LAST 12 MONTHS (VAGINAL, ORAL, OR ANAL)?NO LMP:25 YEARS HAVE YOU EVER HAD AN STD?NO HIV / HEP-C SCREENING HIV TEST OFFERED TO PATIENT:YES DATE OFFERED:05/02/2017 HEP-C TEST OFFERED TO PATIENT:YES DATE OFFERED:05/02/2017 BROCHURE PROVIDED TO PATIENTNO ALEVISM [id number] NONE NO SYNAGOGUE BELIEFS THAT WOULD IMPACT HEALTH CARE. LANGUAGE LANGUAGES SPOKEN:CHILEAN LEARNING BARRIERS / SPECIAL NEEDS CHANGE FROM LAST VISIT?NO BARRIERS TO LEARNING?YES COMMENTS STATES SHE HAS A 4TH GRADE READING LEVEL HEARING IMPAIRED?NO VISION IMPAIRED?YES COGNITIVELY IMPAIRED?NO :CORRECTIVE LENSES READING GLASSES READINESS TO LEARN?YES LEARNING PREFERENCES?YES :OTHER (PLEASE COMMENT) "LEARNING IT HERSELF OR HEARING IT FROM OTHER PEOPLE" LEARNING CAPABILITIES PRESENT?YES EMOTIONAL BARRIERS?NO SPECIAL DEVICES?YES :CANE RIDING DOUBLE NEEDED?NO DOMESTIC VIOLENCE DO YOU FEEL SAFE IN YOUR ENVIRONMENT?YES MARITAL STATUS: SINGLE. PAIN CLINIC PFS, CLERGY, PUBLIC HEALTH REFERRALS PFS REFERRAL NEEDED?NO CLERGY REFERRAL NEEDED?NO PUBLIC HEALTH REFERRAL NEEDED?NO WAS THE PROVIDER NOTIFIED OF ANY PERTINENT INFO?YES N/A HAS THE PATIENT BEEN EDUCATED REGARDING HIS/HER PLAN OF CARE?YES HAS THE PATIENT BEEN EDUCATED REGARDING PAIN, THE RISK FOR PAIN, THE IMPORTANCE OF EFFECTIVE PAIN MANAGEMENT, AND THE PAIN ASSESSMENT PROCESS?YES ADVANCE DIRECTIVE ADVANCE DIRECTIVE DISCUSSED WITH PATIENT:YES PT DOES NOT HAVE ANY ADVANCED DIRECTIVES AND SHE DECLINES INFORMATION ON HCP AT THIS TIME. HOSPITALIZATION/MAJOR DIAGNOSTIC PROCEDURE SURG RELATED REVIEW OF SYSTEMS CONSTITUTIONAL: ANY RECENT FEVER NO . CHILLS NO . WEIGHT CHANGE OF UNKNOWN REASONS NO . GASTROENTEROLOGY: NEW UNEXPLAINABLE CHANGES IN BOWEL CONTROL NO . CONSTIPATION NO . GENITOURINARY: ANY NEW CHANGE IN BLADDER CONTROL? NO . NEUROLOGY: NEW ONSET DIZZINESS OR NEUROLOGICAL CHANGES NOT MENTIONED NO . NEW NUMBNESS OR PAIN PATTERNS NOT MENTIONED AND PERTINENT TO TODAY'S VISIT NO . CARDIOLOGY: NEW CHEST PRESSURE NO . NEW CHEST PAIN NO . RESPIRATORY: UNEXPLAINABLE COUGH NO . NEW SHORTNESS OF BREATH NO . VITAL SIGNS WT 227 LBS, HT 71 IN, BMI 31.66 INDEX, BP 144/68 MM HG, HR 95 /MIN, RR 18 /MIN, TEMP 97.4 F, OXYGEN SAT % 95%, SAFE IN ENV? (Y/N) Y, NA INITIALS SC 14:31, REVIEWED BY: SOPHIA. EXAMINATION GENERAL EXAMINATION: GENERALNO ACUTE DISTRESS, WELL NOURISHED AND HYDRATED. PSYCHAPPROPRIATE MOOD AND AFFECT . LUNGS:CLEAR TO AUSCULTATION BILATERALLY, NO WHEEZES, RHONCHI, RALES. HEART:NO MURMURS, REGULAR RATE AND RHYTHM. ASSESSMENTS NEUROPATHY - G62.9 (PRIMARY) MYALGIA, OTHER SITE - M79.18 TREATMENT NEUROPATHY INCREASE GABAPENTIN TABLET, 800 MG, 1, ORALLY, TID, 30 DAYS, 90 REFILL OXYCODONE HCL TABLET, 10 MG, 1 TABLET NEEDED, ORALLY, EVERY 4 - 6 HRS PRN PAIN MDD=4, 30 DAYS, 120 NOTES: 54 OLD FEMALE IN FOR CHRONIC PAIN FOLLOW-UP. GIVEN PRESENTING SYMPTOMS RECOMMEND INCREASING GABAPENTIN TO 800 MG 3 TIMES A DAY WITH FOLLOW-UP IN 2 MONTHS. PATIENT HAS EXPRESSED UNDERSTANDING OF AND WAS IN AGREEMENT WITH TREATMENT PLAN. GIVEN TIME TO ASK QUESTIONS AND EXPRESS CONCERNS. , [employer] REGISTRY REVIEWED AND DEMONSTRATES COMPLLIANCE. (REF # [id number] ) BRINGS IN MEDICATIONS WHICH IS APPROPRIATE FOR WHAT WAS DISPENSED. RECENT URINE TOXICOLOGY REVIEWED. NO UNAUTHORIZED MEDICATIONS. NO ILLICIT SUBSTANCES AND PRESCRIBED MEDICATIONS WERE PRESENT. MYALGIA, OTHER SITE REFILL BACLOFEN TABLET, 20 MG, 1 TABLET WITH FOOD OR MILK, ORALLY, THREE TIMES A DAY, 30 DAYS, 90 PROCEDURE CODES [id number] ESTABILISHED PATIENT [facility] CHARGE DISPOSITION & COMMUNICATION FOLLOW UP 2 MONTHS (REASON: NEUROPATHY) ELECTRONICALLY SIGNED BY JULIO BRAMBILA ON 12/04/2019 AT 09:15 AM EDT DISCLAIMER : THIS IS A VISIT SUMMARY EXTRACTED FROM THE [employer] CHART. IT IS NOT A COPY OF THE [employer] PROGRESS NOTE. JHON
== END ==
LOC: M PAIN 14:15
PROVIDERS: ATTEND Family Medicine
DX: G62.9 Polyneuropathy, unspecified (principal); M79.18 Myalgia, other site; I25.10 Atherosclerotic heart disease of native coronary artery without angina pectoris; I10 Essential (primary) hypertension; K64.8 Other hemorrhoids; E11.9 Type 2 diabetes mellitus without complications; E78.5 Hyperlipidemia, unspecified; K21.9 Gastro-esophageal reflux disease without esophagitis; G43.909 Migraine, unspecified, not intractable, without status migrainosus; K44.9 Diaphragmatic hernia without obstruction or gangrene; G89.29 Other chronic pain; M21.372 Foot drop, left foot; M79.7 Fibromyalgia; F17.210 Nicotine dependence, cigarettes, uncomplicated; Z79.02 Long term (current) use of antithrombotics/antiplatelets; Z79.899 Other long term (current) drug therapy; Z79.84 Long term (current) use of oral hypoglycemic drugs; Z91.030 Bee allergy status; Z88.8 Allergy status to other drugs, medicaments and biological substances; Z91.041 Radiographic dye allergy status

== ENCOUNTER → 2020-02-03 | Outpatient (CLI) | payer OTHER ==
--- NOTE | 2020-02-05 03:22 | ECWPNPC ---
PATIENT NAME: MIGUEL PICKETT : 1965 GENDER: FEMALE VISIT DATE: 02/03/2020 DISCHARGE DATE: 02/03/20 1516 VISIT LOCKED DATE TIME: PHYSICIAN: BILL SRIVASTAVA PHYSICIAN PAGER NO: ACTIVE RESOURCE: BILL SRIVASTAVA REASON FOR APPOINTMENT 1. NEUROPATHY HISTORY OF PRESENT ILLNESS GENERAL: - 54-YEAR-OLD FEMALE IN FOR CHRONIC PAIN FOLLOW-UP. SHE FEELS HER MEDICATIONS ARE HELPFUL AND DENIES MED SIDE EFFECTS AT THIS TIME. FALL RISK SCREENING: SCREENING :TWO OR MORE FALLS WITH INJURY IN THE PAST [facility] S[facility]ENING: PATIENT HAS A COMPLAINT OF ACUTE OR CHRONIC PAIN :YES LOCATION OF PAIN: EVERYWHERE INTENSITY OF PAIN (SCALE OF 1 TO 10):10 WHAT DOES YOUR PAIN FEEL LIKE:ACHING, BURNING, CONTINOUS NURSING NOTE: -. PAIN CENTER INTAKE QUESTIONS: DO YOU HAVE A HISTORY OF MRSA? :NO DO YOU TAKE A BLOOD THINNERS? :YES DO YOU HAVE ANY BLEEDING DISORDERS? :NO ANY NEW NUMBNESS OR WEAKNESS IN YOUR LEGS OR ARMS? :NO ANY PACEMAKER,DEFIBRILLATOR, OR DORSAL COLUMN STIMULATOR? :NO DO YOU HAVE ANY RASHES OR OPEN SORES? :NO ARE YOU ALLERGIC TO IV DYE? :NO ARE YOU DIABETIC? :YES ANY NEW PROBLEMS WITH YOUR MEDICATIONS? :NO HAVE YOU RECEIVED A VACCINE IN THE PAST 30 DAYS? :NO DO YOU PLAN TO RECEIVE A VACCINE IN THE NEXT 21 DAYS? :NO DO YOU NEED ANY PRESCRIPTION? :NO DO YOU TAKE ANY IMMUNOSUPPRESSIVE MEDICATIONS? :NO IS THERE A CHANCE YOU COULD BE ? :NO ARE YOU BREAST FEEDING? :NO CURRENT MEDICATIONS TAKING RAMIPRIL 10 MG CAPSULE 1 CAPSULE ORALLY ONCE A DAY TAKING NITROSTAT 0.4 MG TABLET SUBLINGUAL 1 TAB SUBLINGUALLY DIRECTED TAKING ATORVASTATIN CALCIUM 80 MG TABLET 1 TABLET ORALLY ONCE A DAY TAKING METFORMIN HCL ER 500 MG TABLET EXTENDED RELEASE 24 HOUR 1 TABLET WITH EVENING MEAL ORALLY TWICE A DAY TAKING FLUTICASONE PROPIONATE HFA 220 MCG/ACT AEROSOL 1 PUFF INHALATION TWICE A DAY TAKING RANITIDINE HCL 75 MG TABLET 1 TABLET NEEDED ORALLY ONCE A DAY TAKING AZELASTINE-FLUTICASONE 137-50 MCG/ACT SUSPENSION 1 PUFF IN EACH NOSTRIL NASALLY TWICE A DAY TAKING EPIPEN 0.3 MG/0.3ML (1:1000) DEVICE 1 PEN INTRAMUSCULAR DAILY NEEDED TAKING FREESTYLE TEST STRIPS 1 STRIP TWICE A DAY NEEDED TAKING NICOTINE 21 MG/24HR PATCH 24 HOUR 1 PATCH TO SKIN TRANSDERMAL ONCE A DAY TAKING NICOTROL 10 MG INHALER 1 CARTRIDGE NEEDED INHALATION 16 TIME(S) A DAY TAKING MIRTAZAPINE 30 MG TABLET 1 TABLET BEFORE BEDTIME IN THE EVENING ORALLY ONCE A DAY TAKING FLOVENT HFA 44 MCG/ACT AEROSOL INHALE TWO PUFFS BY MOUTH TWICE A DAY INHALATION TWICE A DAY TAKING FREESTYLE LITE TEST - STRIP DIRECTED IN VITRO BID TAKING CYMBALTA 60 MG CAPSULE DELAYED RELEASE PARTICLES 1 CAPSULE ORALLY ONCE A DAY TAKING FREESTYLE LANCETS - MISCELLANEOUS 1 LANCET SUBCUTANEOUSLY TWICE A DAY NEEDED BID TAKING TRAZODONE HCL 150 MG TABLET 1 TABLET AT BEDTIME ORALLY BEFORE BEDTIME TAKING CETIRIZINE HCL 10 MG TABLET 1 TABLET NEEDED ORALLY ONCE A DAY TAKING METHOCARBAMOL 750 MG TABLET 1 TABLET ORALLY THREE TIMES DAILY TAKING MONTELUKAST SODIUM 10 MG TABLET 1 TABLET IN THE EVENING ORALLY ONCE A DAY TAKING FOLIC ACID 1 MG TABLET 1 TABLET ORALLY ONCE A DAY TAKING AMITRIPTYLINE HCL 25 MG TABLET DIRECTED ORALLY BEFORE BEDTIME TAKING OMEPRAZOLE 40 MG CAPSULE DELAYED RELEASE 1 CAPSULE ORALLY TWICE A DAY TAKING PRAMIPEXOLE DIHYDROCHLORIDE 0.5 MG TABLET 1 TABLET BEFORE BEDTIME ORALLY 1 TAB IN AM 1 TAB IN PM TAKING VENTOLIN HFA 108 (90 BASE) MCG/ACT AEROSOL SOLUTION 2 PUFFS NEEDED INHALATION EVERY 4 HRS TAKING FLONASE 50 MCG/ACT SUSPENSION 1 SPRAY IN EACH NOSTRIL NASALLY ONCE A DAY TAKING CARISOPRODOL 350 MG TABLET 1 TABLET NEEDED ORALLY FOUR TIMES A DAY TAKING ALOGLIPTIN BENZOATE 12.5 MG TABLET 2 TABLETS ORALLY ONCE A DAY TAKING BACLOFEN 20 MG TABLET 1 TABLET WITH FOOD OR MILK ORALLY THREE TIMES A DAY TAKING GABAPENTIN 800 MG TABLET 1 ORALLY TID TAKING NICODERM CQ 21 MG/24HR PATCH 24 HOUR 1 PATCH TO SKIN TRANSDERMAL ONCE A DAY TAKING MUCINEX 600 MG TABLET EXTENDED RELEASE 1 TABLET NEEDED ORALLY EVERY 12 HRS TAKING LORATADINE 10 MG TABLET 1 TABLET ORALLY ONCE A DAY TAKING OXYCODONE HCL 10 MG TABLET 1 TABLET NEEDED ORALLY EVERY 4 - 6 HRS PRN PAIN MDD=4 TAKING ELIQUIS 5 MG TABLET DIRECTED ORALLY BID NOT-TAKING PLAVIX 75 MG TABLET 1 TABLET ORALLY ONCE A DAY NOT-TAKING FLUCONAZOLE 100 MG TABLET 2 TABS ON DAY 1 ,THEN 1 TAB DAILY ON DAYS 2-10 ORALLY ONCE A DAY NOT-TAKING VITAMIN D 19125 UNIT CAPSULE 1 CAPSULE ORALLY WEEKLY NOT-TAKING AMITIZA 8 MCG CAPSULE 1 CAPSULE WITH FOOD AND WATER ORALLY TWICE A DAY NOT-TAKING COUMADIN 2 MG TABLET ORALLY 6MG DAILY EXCEPT FOR MONDAY DOSE IS 4 MG NOT-TAKING LINZESS 290 MCG CAPSULE 1 CAPSULE ORALLY ONCE A DAY NOT-TAKING LYRICA 75 MG CAPSULE 1 CAPSULE ORALLY TWICE A DAY NOT-TAKING DEPO-PROVERA 150 MG/ML SUSPENSION 1 ML INTRAMUSCULAR Q 3 MONTHS NOT-TAKING CLONAZEPAM 1 MG TABLET 1 TABLET ORALLY TWICE A DAY MEDICATION LIST REVIEWED AND RECONCILED WITH THE PATIENT PAST MEDICAL HISTORY CAD - FOLLOWED BY [facility] INTERNAL HEMORRHOIDS T2DM HYPERLIPIDEMIA GERD MIGRAINES HIATAL HERNIA CHRONIC PAIN RESTLESS BODY SYNDROME ARTHRITIS COLONOSCOPY 2017 WITH DROP FOOT LEFT FRACTURE RIGHT KNEE CAP FRACTURED LEGT ELBOW FIBROMYALGIA ALLERGIES BEES: ANAPHYLAXIS - ALLERGY ANTI DEPRESANTS: MOOD ALTERATION--MEAN, ANGRY - SIDE EFFECTS ACETAMINOPHEN: N/V - SIDE EFFECTS ASPERTAME: N/V - SIDE EFFECTS HEART CATH DYE: ANAPHYLAXIS - ALLERGY FENTANYL : TASTE CHANGES - SIDE EFFECTS STEROIDS: THRUSH - SIDE EFFECTS IV DYE: ANAPHYLAXIS - ALLERGY SURGICAL HISTORY LATERAL RELEASE OF RIGHT KNEE LEFT KNEE BACK SURGERY LEFT SHOULDER SINUS SURGERY COLONOSCOPY DR. MARTINEZ. HEMORRHOIDS MODERATE 06/[address] ORDERED BY DR. Esteban ASHLEY, MULTIPLE STENTS, DUE TO UNSTABLE ANGINA 09/12/2017 FAMILY HISTORY FATHER: , PULMONARY FIBROSES MOTHER: , UNKNOWN, DIAGNOSED WITH DIABETES SIBLINGS: ALIVE SON(S): ALIVE DAUGHTER(S): ALIVE 2 SISTER(S) - HEALTHY. 1 SON(S) , 1 DAUGHTER(S) - HEALTHY. SOCIAL HISTORY GENERAL: TOBACCO USE ARE YOU A:CURRENT SMOKER WE DISCUSSED THE NEED TO QUIT AND TO NOT HAVE THE PATCH ON WHILE SMOKIBG PT VERBALIZES UNDERSTANDING ARE YOU INTERESTED IN QUITTING?READY TO QUIT TAKING NICOTINE PATCH AND NICOTROL INHALER COUNSELED THE PATIENT ON TOBACCO USE, CESSATION VAZAUCIO67/27/2020 HOW MANY CIGARETTES A DAY DO YOU SMOKE?5 OR LESS HOW SOON AFTER YOU WAKE UP DO YOU SMOKE YOUR FIRST CIGARETTE?6-30 MIN HOW OFTEN DO YOU SMOKE CIGARETTES?EVERY DAY PATIENT COUNSELED ON THE DANGERS OF TOBACCO USE AND URGED TO QUIT:02/03/2020 SMOKING CESSATION INFORMATION GIVEN08/05/2019 LATEX QUESTIONNAIRE LATEX ALLERGY : HAVE YOU EVER DEVELOPED ANY TYPE OF REACTION AFTER HANDLING LATEX PRODUCTS SUCH RUBBER GLOVES, CONDOMS, DIAPHRAGMS, BALLOONS, SOCKS, OR UNDERWEAR?NO LATEX ALLERGY : HAVE YOU EVER DEVELOPED ANY TYPE OF REACTION DURING OR AFTER DENTAL APPOINTMENT, VAGINAL/RECTAL EXAMINATION, SURGICAL PROCEDURE, OR ANY OTHER EXPOSURE?NO DATE ASKED : 12/03/2019 LATEX RISK : HAVE YOU EVER HAD ANY DIFFICULTY BREATHING OR HIVES AFTER EATING OR HANDLING ANY FRUITS, OR VEGETABLES; SUCH KIWI, BANANAS, STONE FRUITS, OR CHESTNUTSNO LATEX RISK : DO YOU HAVE A PREVIOUS PERSONAL HISTORY OF MORE THAN NINE SURGERIES, SPINA BIFIDA, OR REPEATED CATHERIZATIONS? NO LATEX RISK : ARE YOU FREQUENTLY EXPOSED TO LATEX PRODUCTS IN YOUR OCCUPATION?NO ALCOHOL SCREENING DID YOU HAVE A DRINK CONTAINING ALCOHOL IN THE PAST YEAR?NO POINTS0 INTERPRETATIONNEGATIVE RECREATIONAL DRUG USE DRUG USE?NO CAFFEINE CAFFEINE USE?YES HOW OFTEN AND HOW MUCH? 2 CUPS COFFEE PER DAY SEXUAL HX HAD SEX IN THE LAST 12 MONTHS (VAGINAL, ORAL, OR ANAL)?NO LMP:25 YEARS HAVE YOU EVER HAD AN STD?NO HIV / HEP-C SCREENING HIV TEST OFFERED TO PATIENT:YES DATE OFFERED:05/02/2017 HEP-C TEST OFFERED TO PATIENT:YES DATE OFFERED:05/02/2017 BROCHURE PROVIDED TO PATIENTNO ISLAM [id number] NONE NO JAINISM BELIEFS THAT WOULD IMPACT HEALTH CARE. LANGUAGE LANGUAGES SPOKEN:YORUBA LEARNING BARRIERS / SPECIAL NEEDS CHANGE FROM LAST VISIT?NO BARRIERS TO LEARNING?YES COMMENTS STATES SHE HAS A 4TH GRADE READING LEVEL HEARING IMPAIRED?NO VISION IMPAIRED?YES COGNITIVELY IMPAIRED?NO :CORRECTIVE LENSES READING GLASSES READINESS TO LEARN?YES LEARNING PREFERENCES?YES :OTHER (PLEASE COMMENT) "LEARNING IT HERSELF OR HEARING IT FROM OTHER PEOPLE" LEARNING CAPABILITIES PRESENT?YES EMOTIONAL BARRIERS?NO SPECIAL DEVICES?YES :CANE REHAB NURSE NEEDED?NO DOMESTIC VIOLENCE DO YOU FEEL SAFE IN YOUR ENVIRONMENT?YES MARITAL STATUS: SINGLE. PAIN CLINIC PFS, CLERGY, PUBLIC HEALTH REFERRALS PFS REFERRAL NEEDED?NO CLERGY REFERRAL NEEDED?NO PUBLIC HEALTH REFERRAL NEEDED?NO WAS THE PROVIDER NOTIFIED OF ANY PERTINENT INFO?YES N/A HAS THE PATIENT BEEN EDUCATED REGARDING HIS/HER PLAN OF CARE?YES HAS THE PATIENT BEEN EDUCATED REGARDING PAIN, THE RISK FOR PAIN, THE IMPORTANCE OF EFFECTIVE PAIN MANAGEMENT, AND THE PAIN ASSESSMENT PROCESS?YES ADVANCE DIRECTIVE ADVANCE DIRECTIVE DISCUSSED WITH PATIENT:YES PT DOES NOT HAVE ANY ADVANCED DIRECTIVES AND SHE DECLINES INFORMATION ON HCP AT THIS TIME. HOSPITALIZATION/MAJOR DIAGNOSTIC PROCEDURE SURG RELATED REVIEW OF SYSTEMS CONSTITUTIONAL: ANY RECENT FEVER NO . CHILLS NO . WEIGHT CHANGE OF UNKNOWN REASONS NO . GASTROENTEROLOGY: NEW UNEXPLAINABLE CHANGES IN BOWEL CONTROL NO . CONSTIPATION NO . GENITOURINARY: ANY NEW CHANGE IN BLADDER CONTROL? NO . NEUROLOGY: NEW ONSET DIZZINESS OR NEUROLOGICAL CHANGES NOT MENTIONED NO . NEW NUMBNESS OR PAIN PATTERNS NOT MENTIONED AND PERTINENT TO TODAY'S VISIT NO . CARDIOLOGY: NEW CHEST PRESSURE NO . NEW CHEST PAIN NO . RESPIRATORY: UNEXPLAINABLE COUGH NO . NEW SHORTNESS OF BREATH NO . EXAMINATION GENERAL EXAMINATION: PSYCHAPPROPRIATE MOOD AND AFFECT , ORIENTED X 3. ASSESSMENTS MYALGIA, OTHER SITE - M79.18 (PRIMARY) NEUROPATHY - G62.9 SACROILIITIS - M46.1 TREATMENT MYALGIA, OTHER SITE REFILL METHOCARBAMOL TABLET, 750 MG, 1 TABLET, ORALLY, THREE TIMES DAILY, 30 DAYS, 90, REFILLS 5 REFILL BACLOFEN TABLET, 20 MG, 1 TABLET WITH FOOD OR MILK, ORALLY, THREE TIMES A DAY, 30 DAYS, 90 NEUROPATHY REFILL GABAPENTIN TABLET, 800 MG, 1, ORALLY, TID, 30 DAYS, 90 REFILL OXYCODONE HCL TABLET, 10 MG, 1 TABLET NEEDED, ORALLY, EVERY 4 - 6 HRS PRN PAIN MDD=4, 30 DAYS, 120 NOTES: 54-YEAR-OLD FEMALE IN FOR CHRONIC PAIN FOLLOW-UP. GIVEN PRESENTING SYMPTOMS RECOMMENDED CONTINUATION OF THEM AND WITH FOLLOW-UP IN 3 MONTHS. PATIENT EXPRESSED UNDERSTANDING OF AND WAS IN AGREEMENT WITH TREATMENT PLAN. GIVEN TIME TO ASK QUESTIONS AND EXPRESS CONCERNS. , ISTOP REGISTRY REVIEWED AND DEMONSTRATES COMPLLIANCE. (REF # [id number] ) BRINGS IN MEDICATIONS WHICH IS APPROPRIATE FOR WHAT WAS DISPENSED. RECENT URINE TOXICOLOGY REVIEWED. NO UNAUTHORIZED MEDICATIONS. NO ILLICIT SUBSTANCES AND PRESCRIBED MEDICATIONS WERE PRESENT. VISIT CONDUCTED VIA TELEPHONE. TIME SPENT WITH PATIENT 11 MINUTES. DISPOSITION & COMMUNICATION FOLLOW UP 3 MONTHS (REASON: NEUROPATHY) ELECTRONICALLY SIGNED BY JULIO BRAMBILA ON 02/04/2020 AT 09:01 AM EST DISCLAIMER : THIS IS A VISIT SUMMARY EXTRACTED FROM THE [employer] CHART. IT IS NOT A COPY OF THE [employer] PROGRESS NOTE. JHON
== END ==
LOC: M PAIN 14:45
PROVIDERS: ATTEND Family Medicine
DX: M79.18 Myalgia, other site (principal); G62.9 Polyneuropathy, unspecified; M46.1 Sacroiliitis, not elsewhere classified; E11.9 Type 2 diabetes mellitus without complications; K21.9 Gastro-esophageal reflux disease without esophagitis; G43.909 Migraine, unspecified, not intractable, without status migrainosus; F17.210 Nicotine dependence, cigarettes, uncomplicated; Z88.5 Allergy status to narcotic agent; Z88.6 Allergy status to analgesic agent; Z88.8 Allergy status to other drugs, medicaments and biological substances; Z91.030 Bee allergy status; Z91.041 Radiographic dye allergy status; Z79.01 Long term (current) use of anticoagulants; Z79.84 Long term (current) use of oral hypoglycemic drugs; Z79.899 Other long term (current) drug therapy

== ENCOUNTER → 2020-02-12 | Outpatient (CLI) | payer OTHER ==
--- NOTE | 2020-02-14 00:03 | ECWPNPC ---
PATIENT NAME: MIGUEL PICKETT : 1965 GENDER: FEMALE VISIT DATE: 02/12/2020 DISCHARGE DATE: 02/12/20 1601 VISIT LOCKED DATE TIME: PHYSICIAN: BILL SRIVASTAVA PHYSICIAN PAGER NO: ACTIVE RESOURCE: BILL SRIVASTAVA REASON FOR APPOINTMENT 1. UTOX HISTORY OF PRESENT ILLNESS GENERAL: -. FALL RISK SCREENING: SCREENING :TWO OR MORE FALLS WITH INJURY IN THE PAST YEAR BROKEN KNEE PAIN SCREENING: PATIENT HAS A COMPLAINT OF ACUTE OR CHRONIC PAIN :YES INTENSITY OF PAIN (SCALE OF 1 TO 10):10 WHAT DOES YOUR PAIN FEEL LIKE:ACHING, BURNING, CONTINOUS, SHARP, STABBING, THROBBING, SHOOTING DURATION:CONTINOUS, CONSTANT PAIN IS INCREASED BY:ACTIVITIES PAIN IS DECREASED BY:OTHERS NOTHING HELPS TREATMENT/MEDICATIONS USED TO MANAGE PAIN:OPIOIDS LEVEL OF RELIEF FROM PAIN TREATMENTS IN THE PAST:0% PAIN HAS INTERFERED WITH THE FOLLOWING:BATHING/DRESSING, WALKING ABILITY, SLEEP NURSING NOTE: -. PAIN CENTER INTAKE QUESTIONS: DO YOU HAVE A HISTORY OF MRSA? :NO DO YOU TAKE A BLOOD THINNERS? :YES PLAVIX DO YOU HAVE ANY BLEEDING DISORDERS? :NO ANY NEW NUMBNESS OR WEAKNESS IN YOUR LEGS OR ARMS? :NO ANY PACEMAKER,DEFIBRILLATOR, OR DORSAL COLUMN STIMULATOR? :NO DO YOU HAVE ANY RASHES OR OPEN SORES? :NO ARE YOU ALLERGIC TO IV DYE? :YES ARE YOU DIABETIC? :YES ANY NEW PROBLEMS WITH YOUR MEDICATIONS? :NO HAVE YOU RECEIVED A VACCINE IN THE PAST 30 DAYS? :NO DO YOU PLAN TO RECEIVE A VACCINE IN THE NEXT 21 DAYS? :NO DO YOU NEED ANY PRESCRIPTION? :NO DO YOU TAKE ANY IMMUNOSUPPRESSIVE MEDICATIONS? :NO IS THERE A CHANCE YOU COULD BE ? :NO ARE YOU BREAST FEEDING? :NO CURRENT MEDICATIONS TAKING RAMIPRIL 10 MG CAPSULE 1 CAPSULE ORALLY ONCE A DAY TAKING NITROSTAT 0.4 MG TABLET SUBLINGUAL 1 TAB SUBLINGUALLY DIRECTED TAKING ATORVASTATIN CALCIUM 80 MG TABLET 1 TABLET ORALLY ONCE A DAY TAKING METFORMIN HCL ER 500 MG TABLET EXTENDED RELEASE 24 HOUR 1 TABLET WITH EVENING MEAL ORALLY TWICE A DAY TAKING RANITIDINE HCL 75 MG TABLET 1 TABLET NEEDED ORALLY ONCE A DAY TAKING AZELASTINE-FLUTICASONE 137-50 MCG/ACT SUSPENSION 1 PUFF IN EACH NOSTRIL NASALLY TWICE A DAY TAKING EPIPEN 0.3 MG/0.3ML (1:1000) DEVICE 1 PEN INTRAMUSCULAR DAILY NEEDED TAKING FREESTYLE TEST STRIPS 1 STRIP TWICE A DAY NEEDED TAKING NICOTINE 21 MG/24HR PATCH 24 HOUR 1 PATCH TO SKIN TRANSDERMAL ONCE A DAY TAKING NICOTROL 10 MG INHALER 1 CARTRIDGE NEEDED INHALATION 16 TIME(S) A DAY TAKING MIRTAZAPINE 30 MG TABLET 1 TABLET BEFORE BEDTIME IN THE EVENING ORALLY ONCE A DAY TAKING FLOVENT HFA 44 MCG/ACT AEROSOL INHALE TWO PUFFS BY MOUTH TWICE A DAY INHALATION TWICE A DAY TAKING FREESTYLE LITE TEST - STRIP DIRECTED IN VITRO BID TAKING CYMBALTA 60 MG CAPSULE DELAYED RELEASE PARTICLES 1 CAPSULE ORALLY ONCE A DAY TAKING FREESTYLE LANCETS - MISCELLANEOUS 1 LANCET SUBCUTANEOUSLY TWICE A DAY NEEDED BID TAKING TRAZODONE HCL 150 MG TABLET 1 TABLET AT BEDTIME ORALLY BEFORE BEDTIME TAKING CETIRIZINE HCL 10 MG TABLET 1 TABLET NEEDED ORALLY ONCE A DAY TAKING MONTELUKAST SODIUM 10 MG TABLET 1 TABLET IN THE EVENING ORALLY ONCE A DAY TAKING FOLIC ACID 1 MG TABLET 1 TABLET ORALLY ONCE A DAY TAKING AMITRIPTYLINE HCL 25 MG TABLET DIRECTED ORALLY BEFORE BEDTIME TAKING OMEPRAZOLE 40 MG CAPSULE DELAYED RELEASE 1 CAPSULE ORALLY TWICE A DAY TAKING PRAMIPEXOLE DIHYDROCHLORIDE 0.5 MG TABLET 1 TABLET BEFORE BEDTIME ORALLY 1 TAB IN AM 1 TAB IN PM TAKING VENTOLIN HFA 108 (90 BASE) MCG/ACT AEROSOL SOLUTION 2 PUFFS NEEDED INHALATION EVERY 4 HRS TAKING FLONASE 50 MCG/ACT SUSPENSION 1 SPRAY IN EACH NOSTRIL NASALLY ONCE A DAY TAKING CARISOPRODOL 350 MG TABLET 1 TABLET NEEDED ORALLY FOUR TIMES A DAY TAKING ALOGLIPTIN BENZOATE 12.5 MG TABLET 2 TABLETS ORALLY ONCE A DAY TAKING MUCINEX 600 MG TABLET EXTENDED RELEASE 1 TABLET NEEDED ORALLY EVERY 12 HRS TAKING LORATADINE 10 MG TABLET 1 TABLET ORALLY ONCE A DAY TAKING ELIQUIS 5 MG TABLET DIRECTED ORALLY BID TAKING METHOCARBAMOL 750 MG TABLET 1 TABLET ORALLY THREE TIMES DAILY TAKING GABAPENTIN 800 MG TABLET 1 ORALLY TID TAKING OXYCODONE HCL 10 MG TABLET 1 TABLET NEEDED ORALLY EVERY 4 - 6 HRS PRN PAIN MDD=4 TAKING BACLOFEN 20 MG TABLET 1 TABLET WITH FOOD OR MILK ORALLY THREE TIMES A DAY TAKING PLAVIX 75 MG TABLET 1 TABLET ORALLY ONCE A DAY TAKING FLUCONAZOLE 100 MG TABLET 2 TABS ON DAY 1 ,THEN 1 TAB DAILY ON DAYS 2-10 ORALLY ONCE A DAY TAKING VITAMIN D 34856 UNIT CAPSULE 1 CAPSULE ORALLY WEEKLY TAKING AMITIZA 8 MCG CAPSULE 1 CAPSULE WITH FOOD AND WATER ORALLY TWICE A DAY TAKING LYRICA 75 MG CAPSULE 1 CAPSULE ORALLY TWICE A DAY TAKING CLONAZEPAM 1 MG TABLET 1 TABLET ORALLY TWICE A DAY NOT-TAKING FLUTICASONE PROPIONATE HFA 220 MCG/ACT AEROSOL 1 PUFF INHALATION TWICE A DAY NOT-TAKING NICODERM CQ 21 MG/24HR PATCH 24 HOUR 1 PATCH TO SKIN TRANSDERMAL ONCE A DAY NOT-TAKING COUMADIN 2 MG TABLET ORALLY 6MG DAILY EXCEPT FOR MONDAY DOSE IS 4 MG NOT-TAKING LINZESS 290 MCG CAPSULE 1 CAPSULE ORALLY ONCE A DAY NOT-TAKING DEPO-PROVERA 150 MG/ML SUSPENSION 1 ML INTRAMUSCULAR Q 3 MONTHS MEDICATION LIST REVIEWED AND RECONCILED WITH THE PATIENT ALLERGIES NO[ALLERGIES VERIFIED] ASSESSMENTS CHRONIC PRESCRIPTION OPIATE USE - Z79.899 TREATMENT CHRONIC PRESCRIPTION OPIATE USE LAB: PAIN CENTER URINE TOX (SEND OUT) DISPOSITION & COMMUNICATION ELECTRONICALLY SIGNED BY JULIO BRAMBILA ON 02/13/2020 AT 09:14 AM EST DISCLAIMER : THIS IS A VISIT SUMMARY EXTRACTED FROM THE [employer] CHART. IT IS NOT A COPY OF THE [employer] PROGRESS NOTE. JHON
== END ==
LOC: M PAIN 14:15
PROVIDERS: ATTEND Family Medicine
DX: Z79.899 Other long term (current) drug therapy (principal)

== ENCOUNTER → 2020-05-15 | Outpatient (CLI) | payer OTHER ==
--- NOTE | 2020-05-19 01:10 | ECWPNPC ---
PATIENT NAME: MIGUEL PICKETT : 1965 GENDER: FEMALE VISIT DATE: 05/15/2020 DISCHARGE DATE: 05/15/20 1451 VISIT LOCKED DATE TIME: PHYSICIAN: BILL SRIVASTAVA PHYSICIAN PAGER NO: ACTIVE RESOURCE: BILL SRIVASTAVA REASON FOR APPOINTMENT 1. NEUROPATHY HISTORY OF PRESENT ILLNESS GENERAL: -55-YEAR-OLD FEMALE IN FOR CHRONIC PAIN FOLLOW-UP. SHE RATES PAIN CURRENTLY AT A 10 OUT OF 10 AND DESCRIBES IT ACHING, BURNING, SHARP, STABBING, THROBBING, AND SHOOTING. SHE FEELS MEDICATIONS ARE HELPFUL AND DENIES MED SIDE EFFECTS AT THIS TIME. FALL RISK SCREENING: SCREENING : ONE FALL REPORTED IN THE LAST YEAR WITH INJURY, PT RIGHT KNEE FX AND LEFT ELBOW FX. PAIN SCREENING: PATIENT HAS A COMPLAINT OF ACUTE OR CHRONIC PAIN :YES LOCATION OF PAIN: WHOLE BODY INTENSITY OF PAIN (SCALE OF 1 TO 10):10 WHAT DOES YOUR PAIN FEEL LIKE:ACHING, BURNING, SHARP, STABBING, THROBBING, SHOOTING DURATION:CONTINOUS, CONSTANT PAIN IS INCREASED BY:ACTIVITIES PAIN IS DECREASED BY:USE OF PAIN MEDICATIONS NURSING NOTE: -. PAIN CENTER INTAKE QUESTIONS: DO YOU HAVE A HISTORY OF MRSA? :NO DO YOU TAKE A BLOOD THINNERS? :YES ELLIQUIS FOR CLOT IN LUNG DO YOU HAVE ANY BLEEDING DISORDERS? :NO ANY NEW NUMBNESS OR WEAKNESS IN YOUR LEGS OR ARMS? :NO ANY PACEMAKER,DEFIBRILLATOR, OR DORSAL COLUMN STIMULATOR? :NO DO YOU HAVE ANY RASHES OR OPEN SORES? :NO ARE YOU ALLERGIC TO IV DYE? :YES ARE YOU DIABETIC? :YES ANY NEW PROBLEMS WITH YOUR MEDICATIONS? :NO HAVE YOU RECEIVED A VACCINE IN THE PAST 30 DAYS? :NO DO YOU PLAN TO RECEIVE A VACCINE IN THE NEXT 21 DAYS? :NO DO YOU NEED ANY PRESCRIPTION? :NO DO YOU TAKE ANY IMMUNOSUPPRESSIVE MEDICATIONS? :NO DO YOU HAVE ANY KIDNEY OR LIVER DISEASE? :NO IS THERE A CHANCE YOU COULD BE ? :NO ARE YOU BREAST FEEDING? :NO CURRENT MEDICATIONS TAKING RAMIPRIL 10 MG CAPSULE 1 CAPSULE ORALLY ONCE A DAY TAKING NITROSTAT 0.4 MG TABLET SUBLINGUAL 1 TAB SUBLINGUALLY DIRECTED TAKING ATORVASTATIN CALCIUM 80 MG TABLET 1 TABLET ORALLY ONCE A DAY TAKING METFORMIN HCL ER 500 MG TABLET EXTENDED RELEASE 24 HOUR 1 TABLET WITH EVENING MEAL ORALLY TWICE A DAY TAKING RANITIDINE HCL 75 MG TABLET 1 TABLET NEEDED ORALLY ONCE A DAY TAKING AZELASTINE-FLUTICASONE 137-50 MCG/ACT SUSPENSION 1 PUFF IN EACH NOSTRIL NASALLY TWICE A DAY TAKING EPIPEN 0.3 MG/0.3ML (1:1000) DEVICE 1 PEN INTRAMUSCULAR DAILY NEEDED TAKING FREESTYLE TEST STRIPS 1 STRIP TWICE A DAY NEEDED TAKING NICOTINE 21 MG/24HR PATCH 24 HOUR 1 PATCH TO SKIN TRANSDERMAL ONCE A DAY TAKING NICOTROL 10 MG INHALER 1 CARTRIDGE NEEDED INHALATION 16 TIME(S) A DAY TAKING MIRTAZAPINE 30 MG TABLET 1 TABLET BEFORE BEDTIME IN THE EVENING ORALLY ONCE A DAY TAKING FLOVENT HFA 44 MCG/ACT AEROSOL INHALE TWO PUFFS BY MOUTH TWICE A DAY INHALATION TWICE A DAY TAKING FREESTYLE LITE TEST - STRIP DIRECTED IN VITRO BID TAKING CYMBALTA 60 MG CAPSULE DELAYED RELEASE PARTICLES 1 CAPSULE ORALLY ONCE A DAY TAKING FREESTYLE LANCETS - MISCELLANEOUS 1 LANCET SUBCUTANEOUSLY TWICE A DAY NEEDED BID TAKING TRAZODONE HCL 150 MG TABLET 1 TABLET AT BEDTIME ORALLY BEFORE BEDTIME TAKING CETIRIZINE HCL 10 MG TABLET 1 TABLET NEEDED ORALLY ONCE A DAY TAKING MONTELUKAST SODIUM 10 MG TABLET 1 TABLET IN THE EVENING ORALLY ONCE A DAY TAKING FOLIC ACID 1 MG TABLET 1 TABLET ORALLY ONCE A DAY TAKING AMITRIPTYLINE HCL 25 MG TABLET DIRECTED ORALLY BEFORE BEDTIME TAKING OMEPRAZOLE 40 MG CAPSULE DELAYED RELEASE 1 CAPSULE ORALLY TWICE A DAY TAKING PRAMIPEXOLE DIHYDROCHLORIDE 0.5 MG TABLET 1 TABLET BEFORE BEDTIME ORALLY 1 TAB IN AM 1 TAB IN PM TAKING VENTOLIN HFA 108 (90 BASE) MCG/ACT AEROSOL SOLUTION 2 PUFFS NEEDED INHALATION EVERY 4 HRS TAKING FLONASE 50 MCG/ACT SUSPENSION 1 SPRAY IN EACH NOSTRIL NASALLY ONCE A DAY TAKING ALOGLIPTIN BENZOATE 12.5 MG TABLET 2 TABLETS ORALLY ONCE A DAY TAKING LORATADINE 10 MG TABLET 1 TABLET ORALLY ONCE A DAY TAKING ELIQUIS 5 MG TABLET DIRECTED ORALLY BID TAKING METHOCARBAMOL 750 MG TABLET 1 TABLET ORALLY THREE TIMES DAILY TAKING PLAVIX 75 MG TABLET 1 TABLET ORALLY ONCE A DAY TAKING FLUCONAZOLE 100 MG TABLET 2 TABS ON DAY 1 ,THEN 1 TAB DAILY ON DAYS 2-10 ORALLY ONCE A DAY TAKING VITAMIN D 85139 UNIT CAPSULE 1 CAPSULE ORALLY WEEKLY TAKING AMITIZA 8 MCG CAPSULE 1 CAPSULE WITH FOOD AND WATER ORALLY TWICE A DAY TAKING LYRICA 75 MG CAPSULE 1 CAPSULE ORALLY TWICE A DAY TAKING GABAPENTIN 800 MG TABLET 1 ORALLY TID TAKING MUCINEX 600 MG TABLET EXTENDED RELEASE 1 TABLET NEEDED ORALLY EVERY 12 HRS TAKING BACLOFEN 20 MG TABLET 1 TABLET WITH FOOD OR MILK ORALLY THREE TIMES A DAY TAKING OXYCODONE HCL 10 MG TABLET 1 TABLET NEEDED ORALLY EVERY 4 - 6 HRS PRN PAIN MDD=4 NOT-TAKING CARISOPRODOL 350 MG TABLET 1 TABLET NEEDED ORALLY FOUR TIMES A DAY NOT-TAKING CLONAZEPAM 1 MG TABLET 1 TABLET ORALLY TWICE A DAY NOT-TAKING NICODERM CQ 21 MG/24HR PATCH 24 HOUR 1 PATCH TO SKIN TRANSDERMAL ONCE A DAY NOT-TAKING FLUTICASONE PROPIONATE HFA 220 MCG/ACT AEROSOL 1 PUFF INHALATION TWICE A DAY NOT-TAKING COUMADIN 2 MG TABLET ORALLY 6MG DAILY EXCEPT FOR MONDAY DOSE IS 4 MG NOT-TAKING LINZESS 290 MCG CAPSULE 1 CAPSULE ORALLY ONCE A DAY NOT-TAKING DEPO-PROVERA 150 MG/ML SUSPENSION 1 ML INTRAMUSCULAR Q 3 MONTHS MEDICATION LIST REVIEWED AND RECONCILED WITH THE PATIENT PAST MEDICAL HISTORY CAD - FOLLOWED BY [facility] HTN INTERNAL HEMORRHOIDS T2DM HYPERLIPIDEMIA GERD MIGRAINES HIATAL HERNIA CHRONIC PAIN RESTLESS BODY SYNDROME ARTHRITIS COLONOSCOPY 2018 WITH DROP FOOT LEFT FRACTURE RIGHT KNEE CAP FRACTURED LEGT ELBOW FIBROMYALGIA ALLERGIES BEES: ANAPHYLAXIS - ALLERGY ANTI DEPRESANTS: MOOD ALTERATION--MEAN, ANGRY - SIDE EFFECTS ACETAMINOPHEN: N/V - SIDE EFFECTS ASPERTAME: N/V - SIDE EFFECTS HEART CATH DYE: ANAPHYLAXIS - ALLERGY FENTANYL : TASTE CHANGES - SIDE EFFECTS STEROIDS: THRUSH - SIDE EFFECTS IV DYE: ANAPHYLAXIS - ALLERGY SOCIAL HISTORY GENERAL: TOBACCO USE ARE YOU A:CURRENT SMOKER WE DISCUSSED THE NEED TO QUIT AND TO NOT HAVE THE PATCH ON WHILE SMOKIBG PT VERBALIZES UNDERSTANDING HOW OFTEN DO YOU SMOKE CIGARETTES?EVERY DAY HOW SOON AFTER YOU WAKE UP DO YOU SMOKE YOUR FIRST CIGARETTE?6-30 MIN HOW MANY CIGARETTES A DAY DO YOU SMOKE?5 OR LESS ARE YOU INTERESTED IN QUITTING?READY TO QUIT TAKING NICOTINE PATCH AND NICOTROL INHALER PATIENT COUNSELED ON THE DANGERS OF TOBACCO USE AND URGED TO QUIT:02/03/2020 COUNSELED THE PATIENT ON TOBACCO USE, CESSATION [id number] SMOKING CESSATION INFORMATION GIVEN08/05/2019 LATEX QUESTIONNAIRE LATEX ALLERGY : HAVE YOU EVER DEVELOPED ANY TYPE OF REACTION AFTER HANDLING LATEX PRODUCTS SUCH RUBBER GLOVES, CONDOMS, DIAPHRAGMS, BALLOONS, SOCKS, OR UNDERWEAR?NO LATEX ALLERGY : HAVE YOU EVER DEVELOPED ANY TYPE OF REACTION DURING OR AFTER DENTAL APPOINTMENT, VAGINAL/RECTAL EXAMINATION, SURGICAL PROCEDURE, OR ANY OTHER EXPOSURE?NO DATE ASKED : 12/03/2019 LATEX RISK : HAVE YOU EVER HAD ANY DIFFICULTY BREATHING OR HIVES AFTER EATING OR HANDLING ANY FRUITS, OR VEGETABLES; SUCH KIWI, BANANAS, STONE FRUITS, OR CHESTNUTSNO LATEX RISK : DO YOU HAVE A PREVIOUS PERSONAL HISTORY OF MORE THAN NINE SURGERIES, SPINA BIFIDA, OR REPEATED CATHERIZATIONS? NO LATEX RISK : ARE YOU FREQUENTLY EXPOSED TO LATEX PRODUCTS IN YOUR OCCUPATION?NO ALCOHOL SCREENING DID YOU HAVE A DRINK CONTAINING ALCOHOL IN THE PAST YEAR?NO POINTS0 INTERPRETATIONNEGATIVE RECREATIONAL DRUG USE DRUG USE?NO CAFFEINE CAFFEINE USE?YES HOW OFTEN AND HOW MUCH? 2 CUPS COFFEE PER DAY SEXUAL HX HAD SEX IN THE LAST 12 MONTHS (VAGINAL, ORAL, OR ANAL)?NO LMP:25 YEARS HAVE YOU EVER HAD AN STD?NO HIV / HEP-C SCREENING HIV TEST OFFERED TO PATIENT:YES DATE OFFERED:05/02/2017 HEP-C TEST OFFERED TO PATIENT:YES DATE OFFERED:05/02/2017 BROCHURE PROVIDED TO PATIENTNO BUDDHISM [id number] NONE NO CHRISTIANITY BELIEFS THAT WOULD IMPACT HEALTH CARE. LANGUAGE LANGUAGES SPOKEN:CROATIAN LEARNING BARRIERS / SPECIAL NEEDS CHANGE FROM LAST VISIT?NO BARRIERS TO LEARNING?YES COMMENTS STATES SHE HAS A 4TH GRADE READING LEVEL HEARING IMPAIRED?NO VISION IMPAIRED?YES COGNITIVELY IMPAIRED?NO :CORRECTIVE LENSES READING GLASSES READINESS TO LEARN?YES LEARNING PREFERENCES?YES :OTHER (PLEASE COMMENT) "LEARNING IT HERSELF OR HEARING IT FROM OTHER PEOPLE" LEARNING CAPABILITIES PRESENT?YES EMOTIONAL BARRIERS?NO SPECIAL DEVICES?YES :CANE UNDERGRADUATE INTERN NEEDED?NO DOMESTIC VIOLENCE DO YOU FEEL SAFE IN YOUR ENVIRONMENT?YES MARITAL STATUS: SINGLE. - PFS REFERRAL NEEDED?NO CLERGY REFERRAL NEEDED?NO PUBLIC HEALTH REFERRAL NEEDED?NO WAS THE PROVIDER NOTIFIED OF ANY PERTINENT INFO?YES N/A HAS THE PATIENT BEEN EDUCATED REGARDING HIS/HER PLAN OF CARE?YES HAS THE PATIENT BEEN EDUCATED REGARDING PAIN, THE RISK FOR PAIN, THE IMPORTANCE OF EFFECTIVE PAIN MANAGEMENT, AND THE PAIN ASSESSMENT PROCESS?YES ADVANCE DIRECTIVE ADVANCE DIRECTIVE DISCUSSED WITH PATIENT:YES PT DOES NOT HAVE ANY ADVANCED DIRECTIVES AND SHE DECLINES INFORMATION ON HCP AT THIS TIME. REVIEW OF SYSTEMS CONSTITUTIONAL: ANY RECENT FEVER NO . CHILLS NO . WEIGHT CHANGE OF UNKNOWN REASONS NO . GASTROENTEROLOGY: NEW UNEXPLAINABLE CHANGES IN BOWEL CONTROL NO . CONSTIPATION NO . GENITOURINARY: ANY NEW CHANGE IN BLADDER CONTROL? NO . NEUROLOGY: NEW ONSET DIZZINESS OR NEUROLOGICAL CHANGES NOT MENTIONED NO . NEW NUMBNESS OR PAIN PATTERNS NOT MENTIONED AND PERTINENT TO TODAY'S VISIT NO . CARDIOLOGY: NEW CHEST PRESSURE NO . PATIENT DENIES NO . RESPIRATORY: UNEXPLAINABLE COUGH NO . NEW SHORTNESS OF BREATH NO . VITAL SIGNS WT 234.4 LBS, HT 71 IN, BMI 32.69 INDEX, BP 148/74 MM HG, HR 99 /MIN, RR 18 /MIN, TEMP 97.6 F, OXYGEN SAT % 96%, SAFE IN ENV? (Y/N) Y, NA INITIALS AW 1413, REVIEWED BY: VICKI. EXAMINATION GENERAL EXAMINATION: GENERALNO ACUTE DISTRESS, WELL NOURISHED AND HYDRATED. PSYCHAPPROPRIATE MOOD AND AFFECT . LUNGS:CLEAR TO AUSCULTATION BILATERALLY, NO WHEEZES, RHONCHI, RALES. HEART:NO MURMURS, REGULAR RATE AND RHYTHM. ASSESSMENTS POST LAMINECTOMY SYNDROME - M96.1 (PRIMARY) TREATMENT POST LAMINECTOMY SYNDROME START SOMA TABLET, 350 MG, 1 TABLET NEEDED, ORALLY, TWO TIMES A DAY, 3 DAYS, 6 [facility] MRI SPINE, L.S. WITH [id number] NOTES: 55-YEAR-OLD FEMALE IN FOR CHRONIC PAIN FOLLOW-UP. GIVEN PRESENTING SYMPTOMS RECOMMEND SHORT COURSE OF SOMA TO HELP WITH PATIENT'S INCREASED BACK PAIN AND OBTAINING AN MRI FOR FURTHER EVALUATION. PATIENT HAS EXPRESSED UNDERSTANDING OF AND WAS IN AGREEMENT WITH TREATMENT PLAN. GIVEN TIME TO ASK QUESTIONS AND EXPRESS CONCERNS. , ISTOP REGISTRY REVIEWED AND DEMONSTRATES COMPLLIANCE. (REF # [id number] ) BRINGS IN MEDICATIONS WHICH IS APPROPRIATE FOR WHAT WAS DISPENSED. RECENT URINE TOXICOLOGY REVIEWED. NO UNAUTHORIZED MEDICATIONS. NO ILLICIT SUBSTANCES AND PRESCRIBED MEDICATIONS WERE PRESENT. DISPOSITION & COMMUNICATION FOLLOW UP POST IMAGING (REASON: MRI LUMBAR SPINE WITH CONTRAST ) ELECTRONICALLY SIGNED BY JULIO BRAMBILA ON 05/18/2020 AT 01:26 PM EDT DISCLAIMER : THIS IS A VISIT SUMMARY EXTRACTED FROM THE [employer] CHART. IT IS NOT A COPY OF THE [employer] PROGRESS NOTE. JHON
== END ==
LOC: M PAIN 14:15
PROVIDERS: ATTEND Family Medicine
DX: M96.1 Postlaminectomy syndrome, not elsewhere classified (principal); E11.9 Type 2 diabetes mellitus without complications; K21.9 Gastro-esophageal reflux disease without esophagitis; G43.909 Migraine, unspecified, not intractable, without status migrainosus; M79.7 Fibromyalgia; F17.210 Nicotine dependence, cigarettes, uncomplicated; Z88.5 Allergy status to narcotic agent; Z88.6 Allergy status to analgesic agent; Z88.8 Allergy status to other drugs, medicaments and biological substances; Z91.030 Bee allergy status; Z91.041 Radiographic dye allergy status; Z79.01 Long term (current) use of anticoagulants; Z79.84 Long term (current) use of oral hypoglycemic drugs; Z79.899 Other long term (current) drug therapy

== ENCOUNTER → 2020-07-15 | Outpatient (CLI) | payer OTHER ==
--- NOTE | 2020-07-17 00:29 | ECWPNPC ---
PATIENT NAME: MIGUEL PICKETT : 1965 GENDER: FEMALE VISIT DATE: 07/15/2020 DISCHARGE DATE: 07/15/20 1525 VISIT LOCKED DATE TIME: PHYSICIAN: BILL SRIVASTAVA PHYSICIAN PAGER NO: ACTIVE RESOURCE: BILL SRIVASTAVA REASON FOR APPOINTMENT 1. X RAY REVIEW HISTORY OF PRESENT ILLNESS PAIN CENTER INTAKE QUESTIONS: DO YOU HAVE A HISTORY OF MRSA? :NO DO YOU TAKE A BLOOD THINNERS? :YES ELLIQUIS FOR CLOT IN LUNG DO YOU HAVE ANY BLEEDING DISORDERS? :NO ANY NEW NUMBNESS OR WEAKNESS IN YOUR LEGS OR ARMS? :YES LEFT LEG AND LEFT SIDE ANY PACEMAKER,DEFIBRILLATOR, OR DORSAL COLUMN STIMULATOR? :NO DO YOU HAVE ANY RASHES OR OPEN SORES? :NO ARE YOU ALLERGIC TO IV DYE? :YES ARE YOU DIABETIC? :YES ANY NEW PROBLEMS WITH YOUR MEDICATIONS? :NO HAVE YOU RECEIVED A VACCINE IN THE PAST 30 DAYS? :NO DO YOU PLAN TO RECEIVE A VACCINE IN THE NEXT 21 DAYS? :NO DO YOU NEED ANY PRESCRIPTION? :NO DO YOU TAKE ANY IMMUNOSUPPRESSIVE MEDICATIONS? :NO DO YOU HAVE ANY KIDNEY OR LIVER DISEASE? :NO IS THERE A CHANCE YOU COULD BE ? :NO ARE YOU BREAST FEEDING? :NO GENERAL: HPI 55-YEAR-OLD FEMALE IN FOR CHRONIC PAIN FOLLOW-UP. SHE RATES HER PAIN CURRENTLY AT A 10 OUT OF 10. WHEN ASKED PATIENT ADMITS THAT HER MOTORIZED WHEELCHAIR NO LONGER WORKS AND SUCH SHE HAS INCREASED HER WALKING AND HAS EXPERIENCED INCREASED PAIN A RESULT OF THAT. SHE FURTHER ADMITS THAT GABAPENTIN IS NO LONGER WORKING TO HELP WITH HER SYMPTOMS.. -. FALL RISK SCREENING: SCREENING SIX FALLS REPORTED IN THE LAST YEAR. 2 WITH INJURY. PATIENT SOUGHT MEDICAL TREATMENT.. PAIN SCREENING: PATIENT HAS A COMPLAINT OF ACUTE OR CHRONIC PAIN :YES LOCATION OF PAIN:LEFT HIP, LEG(S) LEFT SIDE INTENSITY OF PAIN (SCALE OF 1 TO 10):10 WHAT DOES YOUR PAIN FEEL LIKE:ACHING, BURNING, CONTINOUS, SHARP, STABBING, TENDER, THROBBING, SORE, SHOOTING DURATION:CONTINOUS, CONSTANT, AWAKENS FROM SLEEP PAIN IS INCREASED BY:ACTIVITIES, PROLONGED STANDING PAIN IS DECREASED BY:OTHERS NO RELIEF FROM ANY TREATMENT. NURSING NOTE: -. CURRENT MEDICATIONS TAKING RAMIPRIL 10 MG CAPSULE 1 CAPSULE ORALLY ONCE A DAY TAKING NITROSTAT 0.4 MG TABLET SUBLINGUAL 1 TAB SUBLINGUALLY DIRECTED TAKING ATORVASTATIN CALCIUM 80 MG TABLET 1 TABLET ORALLY ONCE A DAY TAKING METFORMIN HCL ER 500 MG TABLET EXTENDED RELEASE 24 HOUR 1 TABLET WITH EVENING MEAL ORALLY TWICE A DAY TAKING RANITIDINE HCL 75 MG TABLET 1 TABLET NEEDED ORALLY ONCE A DAY TAKING AZELASTINE-FLUTICASONE 137-50 MCG/ACT SUSPENSION 1 PUFF IN EACH NOSTRIL NASALLY TWICE A DAY TAKING EPIPEN 0.3 MG/0.3ML (1:1000) DEVICE 1 PEN INTRAMUSCULAR DAILY NEEDED TAKING FREESTYLE TEST STRIPS 1 STRIP TWICE A DAY NEEDED TAKING NICOTINE 21 MG/24HR PATCH 24 HOUR 1 PATCH TO SKIN TRANSDERMAL ONCE A DAY TAKING NICOTROL 10 MG INHALER 1 CARTRIDGE NEEDED INHALATION 16 TIME(S) A DAY TAKING MIRTAZAPINE 30 MG TABLET 1 TABLET BEFORE BEDTIME IN THE EVENING ORALLY ONCE A DAY TAKING FLOVENT HFA 44 MCG/ACT AEROSOL INHALE TWO PUFFS BY MOUTH TWICE A DAY INHALATION TWICE A DAY TAKING FREESTYLE LITE TEST - STRIP DIRECTED IN VITRO BID TAKING CYMBALTA 60 MG CAPSULE DELAYED RELEASE PARTICLES 1 CAPSULE ORALLY ONCE A DAY TAKING FREESTYLE LANCETS - MISCELLANEOUS 1 LANCET SUBCUTANEOUSLY TWICE A DAY NEEDED BID TAKING TRAZODONE HCL 150 MG TABLET 1 TABLET AT BEDTIME ORALLY BEFORE BEDTIME TAKING CETIRIZINE HCL 10 MG TABLET 1 TABLET NEEDED ORALLY ONCE A DAY TAKING MONTELUKAST SODIUM 10 MG TABLET 1 TABLET IN THE EVENING ORALLY ONCE A DAY TAKING FOLIC ACID 1 MG TABLET 1 TABLET ORALLY ONCE A DAY TAKING AMITRIPTYLINE HCL 25 MG TABLET DIRECTED ORALLY BEFORE BEDTIME TAKING OMEPRAZOLE 40 MG CAPSULE DELAYED RELEASE 1 CAPSULE ORALLY TWICE A DAY TAKING PRAMIPEXOLE DIHYDROCHLORIDE 0.5 MG TABLET 1 TABLET BEFORE BEDTIME ORALLY 1 TAB IN AM 1 TAB IN PM TAKING VENTOLIN HFA 108 (90 BASE) MCG/ACT AEROSOL SOLUTION 2 PUFFS NEEDED INHALATION EVERY 4 HRS TAKING FLONASE 50 MCG/ACT SUSPENSION 1 SPRAY IN EACH NOSTRIL NASALLY ONCE A DAY TAKING ALOGLIPTIN BENZOATE 12.5 MG TABLET 2 TABLETS ORALLY ONCE A DAY TAKING ELIQUIS 5 MG TABLET DIRECTED ORALLY BID TAKING METHOCARBAMOL 750 MG TABLET 1 TABLET ORALLY THREE TIMES DAILY TAKING PLAVIX 75 MG TABLET 1 TABLET ORALLY ONCE A DAY TAKING FLUCONAZOLE 100 MG TABLET 2 TABS ON DAY 1 ,THEN 1 TAB DAILY ON DAYS 2-10 ORALLY ONCE A DAY TAKING VITAMIN D 46915 UNIT CAPSULE 1 CAPSULE ORALLY WEEKLY TAKING AMITIZA 8 MCG CAPSULE 1 CAPSULE WITH FOOD AND WATER ORALLY TWICE A DAY TAKING LYRICA 75 MG CAPSULE 1 CAPSULE ORALLY TWICE A DAY TAKING SOMA 350 MG TABLET 1 TABLET NEEDED ORALLY TWO TIMES A DAY TAKING METHYLPREDNISOLONE 4 MG TABLET THERAPY PACK DIRECTED ORALLY DIRECTED TAKING LORATADINE 10 MG TABLET 1 TABLET ORALLY ONCE A DAY TAKING MUCINEX 600 MG TABLET EXTENDED RELEASE 1 TABLET NEEDED ORALLY EVERY 12 HRS TAKING BACLOFEN 20 MG TABLET 1 TABLET WITH FOOD OR MILK ORALLY THREE TIMES A DAY TAKING GABAPENTIN 800 MG TABLET 1 ORALLY TID TAKING OXYCODONE HCL 10 MG TABLET 1 TABLET NEEDED ORALLY EVERY 4 - 6 HRS PRN PAIN MDD=4 TAKING DOXYCYCLINE 40 MG CAPSULE DELAYED RELEASE 100MG CAPSULE IN THE MORNING ON AN EMPTY STOMACH ORALLY ONCE A DAY NOT-TAKING CARISOPRODOL 350 MG TABLET 1 TABLET NEEDED ORALLY FOUR TIMES A DAY NOT-TAKING CLONAZEPAM 1 MG TABLET 1 TABLET ORALLY TWICE A DAY NOT-TAKING NICODERM CQ 21 MG/24HR PATCH 24 HOUR 1 PATCH TO SKIN TRANSDERMAL ONCE A DAY NOT-TAKING FLUTICASONE PROPIONATE HFA 220 MCG/ACT AEROSOL 1 PUFF INHALATION TWICE A DAY NOT-TAKING COUMADIN 2 MG TABLET ORALLY 6MG DAILY EXCEPT FOR MONDAY DOSE IS 4 MG NOT-TAKING LINZESS 290 MCG CAPSULE 1 CAPSULE ORALLY ONCE A DAY NOT-TAKING DEPO-PROVERA 150 MG/ML SUSPENSION 1 ML INTRAMUSCULAR Q 3 MONTHS MEDICATION LIST REVIEWED AND RECONCILED WITH THE PATIENT PAST MEDICAL HISTORY CAD - FOLLOWED BY [facility] INTERNAL HEMORRHOIDS T2DM HYPERLIPIDEMIA GERD MIGRAINES HIATAL HERNIA CHRONIC PAIN RESTLESS BODY SYNDROME ARTHRITIS COLONOSCOPY 2018 WITH DROP FOOT LEFT FRACTURE RIGHT KNEE CAP FRACTURED LEGT ELBOW FIBROMYALGIA ALLERGIES BEES: ANAPHYLAXIS - ALLERGY ANTI DEPRESANTS: MOOD ALTERATION--MEAN, ANGRY - SIDE EFFECTS ACETAMINOPHEN: N/V - SIDE EFFECTS ASPERTAME: N/V - SIDE EFFECTS HEART CATH DYE: ANAPHYLAXIS - ALLERGY FENTANYL : TASTE CHANGES - SIDE EFFECTS STEROIDS: THRUSH - SIDE EFFECTS IV DYE: ANAPHYLAXIS - ALLERGY SOCIAL HISTORY GENERAL: TOBACCO USE ARE YOU A:CURRENT SMOKER ARE YOU INTERESTED IN QUITTING?THINKING ABOUT QUITTING HOW MANY CIGARETTES A DAY DO YOU SMOKE?5 OR LESS HOW SOON AFTER YOU WAKE UP DO YOU SMOKE YOUR FIRST CIGARETTE?6-30 MIN HOW OFTEN DO YOU SMOKE CIGARETTES?EVERY DAY PATIENT COUNSELED ON THE DANGERS OF TOBACCO USE AND URGED TO QUIT:07/15/2020 LATEX QUESTIONNAIRE LATEX ALLERGY : HAVE YOU EVER DEVELOPED ANY TYPE OF REACTION AFTER HANDLING LATEX PRODUCTS SUCH RUBBER GLOVES, CONDOMS, DIAPHRAGMS, BALLOONS, SOCKS, OR UNDERWEAR?NO LATEX ALLERGY : HAVE YOU EVER DEVELOPED ANY TYPE OF REACTION DURING OR AFTER DENTAL APPOINTMENT, VAGINAL/RECTAL EXAMINATION, SURGICAL PROCEDURE, OR ANY OTHER EXPOSURE?NO DATE ASKED : 12/03/2019 LATEX RISK : HAVE YOU EVER HAD ANY DIFFICULTY BREATHING OR HIVES AFTER EATING OR HANDLING ANY FRUITS, OR VEGETABLES; SUCH KIWI, BANANAS, STONE FRUITS, OR CHESTNUTSNO LATEX RISK : DO YOU HAVE A PREVIOUS PERSONAL HISTORY OF MORE THAN NINE SURGERIES, SPINA BIFIDA, OR REPEATED CATHERIZATIONS? NO LATEX RISK : ARE YOU FREQUENTLY EXPOSED TO LATEX PRODUCTS IN YOUR OCCUPATION?NO ALCOHOL USE: NO. ALCOHOL SCREENING DID YOU HAVE A DRINK CONTAINING ALCOHOL IN THE PAST YEAR?NO POINTS0 INTERPRETATIONNEGATIVE RECREATIONAL DRUG USE DRUG USE?NO CAFFEINE CAFFEINE USE?YES HOW OFTEN AND HOW MUCH? 2 CUPS COFFEE PER DAY SEXUAL HX HAD SEX IN THE LAST 12 MONTHS (VAGINAL, ORAL, OR ANAL)?NO LMP:25 YEARS HAVE YOU EVER HAD AN STD?NO HIV / HEP-C SCREENING HIV TEST OFFERED TO PATIENT:YES DATE OFFERED:05/02/2017 HEP-C TEST OFFERED TO PATIENT:YES DATE OFFERED:05/02/2017 BROCHURE PROVIDED TO PATIENTNO RELIGIOUS [id number] NONE NO SCIENTOLOGY BELIEFS THAT WOULD IMPACT HEALTH CARE. LANGUAGE LANGUAGES SPOKEN:MACANESE LEARNING BARRIERS / SPECIAL NEEDS CHANGE FROM LAST VISIT?NO BARRIERS TO LEARNING?YES COMMENTS STATES SHE HAS A 4TH GRADE READING LEVEL HEARING IMPAIRED?NO VISION IMPAIRED?YES :CORRECTIVE LENSES READING GLASSES COGNITIVELY IMPAIRED?NO READINESS TO LEARN?YES LEARNING PREFERENCES?YES :OTHER (PLEASE COMMENT) "LEARNING IT HERSELF OR HEARING IT FROM OTHER PEOPLE" LEARNING CAPABILITIES PRESENT?YES EMOTIONAL BARRIERS?NO SPECIAL DEVICES?YES :CANE DIRECTOR GROUP SALES NEEDED?NO DOMESTIC VIOLENCE DO YOU FEEL SAFE IN YOUR ENVIRONMENT?YES MARITAL STATUS: SINGLE. - PFS REFERRAL NEEDED?NO CLERGY REFERRAL NEEDED?NO PUBLIC HEALTH REFERRAL NEEDED?NO WAS THE PROVIDER NOTIFIED OF ANY PERTINENT INFO?YES N/A HAS THE PATIENT BEEN EDUCATED REGARDING HIS/HER PLAN OF CARE?YES HAS THE PATIENT BEEN EDUCATED REGARDING PAIN, THE RISK FOR PAIN, THE IMPORTANCE OF EFFECTIVE PAIN MANAGEMENT, AND THE PAIN ASSESSMENT PROCESS?YES ADVANCE DIRECTIVE ADVANCE DIRECTIVE DISCUSSED WITH PATIENT:YES PT DOES NOT HAVE ANY ADVANCED DIRECTIVES AND SHE DECLINES INFORMATION ON HCP AT THIS TIME. REVIEW OF SYSTEMS CONSTITUTIONAL: ANY RECENT FEVER NO . CHILLS NO . WEIGHT CHANGE OF UNKNOWN REASONS NO . GASTROENTEROLOGY: NEW UNEXPLAINABLE CHANGES IN BOWEL CONTROL NO . CONSTIPATION NO . GENITOURINARY: ANY NEW CHANGE IN BLADDER CONTROL? NO . NEUROLOGY: NEW ONSET DIZZINESS OR NEUROLOGICAL CHANGES NOT MENTIONED NO . NEW NUMBNESS OR PAIN PATTERNS NOT MENTIONED AND PERTINENT TO TODAY'S VISIT NO . CARDIOLOGY: NEW CHEST PRESSURE NO . PATIENT DENIES NO . RESPIRATORY: UNEXPLAINABLE COUGH NO . NEW SHORTNESS OF BREATH NO . VITAL SIGNS WT 223.4 LBS, HT 71 IN, BMI 31.15 INDEX, BP 149/74 MM HG, HR 103 /MIN, RR 18 /MIN, TEMP 97.3 F, OXYGEN SAT % 95%, SAFE IN ENV? (Y/N) YES, REVIEWED BY: TOMASZ ZEPEDA MA. EXAMINATION GENERAL EXAMINATION: GENERALNO ACUTE DISTRESS, WELL NOURISHED AND HYDRATED. PSYCHAPPROPRIATE MOOD AND AFFECT . LUNGS:CLEAR TO AUSCULTATION BILATERALLY, NO WHEEZES, RHONCHI, RALES. HEART:NO MURMURS, REGULAR RATE AND RHYTHM. ASSESSMENTS LUMBAR POST-LAMINECTOMY SYNDROME - M96.1 (PRIMARY), FOLLOWED BY THE PAIN CENTER. I HAVE COMPLETED THE FORMS TO CONTINUE HOME HEALTH AIDE TREATMENT LUMBAR POST-LAMINECTOMY SYNDROME START GABAPENTIN TABLET, 600 MG, 1 TABLET, ORALLY, TID X 1WEEK THEN BID X 1 WEEK THEN QD X 1 WEEK THEN EVERY OTHER DAY X 1 WEEK, 30 DAY(S), 46 START LYRICA CAPSULE, 75 MG, 1 CAPSULE, ORALLY, TWICE A DAY, 30 DAYS, 60 CAPSULE NOTES: 55-YEAR-OLD FEMALE IN FOR CHRONIC PAIN FOLLOW-UP. GIVEN PRESENTING SYMPTOMS RECOMMENDED TAPERING OFF GABAPENTIN FOLLOWS 600 MG 3 TIMES A DAY X 1 WEEK THEN 600 MG TWICE A DAY X 1 WEEK THEN 600 MG DAILY X 1 WEEK THEN 600 MG EVERY OTHER DAY X1 WEEK THEN STOP. FURTHER RECOMMENDED STARTING LYRICA 75 MG 2 TIMES A DAY WITH FOLLOW-UP IN 1 MONTH. PATIENT HAS EXPRESSED UNDERSTANDING OF AND WAS IN AGREEMENT WITH TREATMENT PLAN. GIVEN TIME TO ASK QUESTIONS AND EXPRESS CONCERNS. ISTOP REGISTRY REVIEWED AND DEMONSTRATES COMPLLIANCE. (REF #[id number] ) BRINGS IN MEDICATIONS WHICH IS APPROPRIATE FOR WHAT WAS DISPENSED. RECENT URINE TOXICOLOGY REVIEWED. NO UNAUTHORIZED MEDICATIONS. NO ILLICIT SUBSTANCES AND PRESCRIBED MEDICATIONS WERE PRESENT. OTHERS NOTES: PREGABALIN MATERIAL WAS PRINTED. PROCEDURE CODES [id number] ESTABILISHED PATIENT [facility] CHARGE DISPOSITION & COMMUNICATION FOLLOW UP 4 WEEKS (REASON: NEW MED) ELECTRONICALLY SIGNED BY JULIO BRAMBILA ON 07/16/2020 AT 08:32 AM EDT DISCLAIMER : THIS IS A VISIT SUMMARY EXTRACTED FROM THE [employer] CHART. IT IS NOT A COPY OF THE [employer] PROGRESS NOTE. JHON
== END ==
LOC: M PAIN 14:45
PROVIDERS: ATTEND Family Medicine
DX: M96.1 Postlaminectomy syndrome, not elsewhere classified (principal); E11.9 Type 2 diabetes mellitus without complications; K21.9 Gastro-esophageal reflux disease without esophagitis; G43.909 Migraine, unspecified, not intractable, without status migrainosus; M79.7 Fibromyalgia; F17.210 Nicotine dependence, cigarettes, uncomplicated; Z88.5 Allergy status to narcotic agent; Z88.6 Allergy status to analgesic agent; Z88.8 Allergy status to other drugs, medicaments and biological substances; Z91.030 Bee allergy status; Z91.041 Radiographic dye allergy status; Z79.01 Long term (current) use of anticoagulants; Z79.84 Long term (current) use of oral hypoglycemic drugs; Z79.899 Other long term (current) drug therapy

== ENCOUNTER → 2020-08-21 | Outpatient (CLI) | payer OTHER ==
[~2020-08-21] MED LIST changes: +OMEP40CA4 PO; -OMEP40CA97 PO
--- NOTE | 2020-08-25 00:22 | ECWPNPC ---
PATIENT NAME: MIGUEL PICKETT : 1965 GENDER: FEMALE VISIT DATE: 08/21/2020 DISCHARGE DATE: 08/21/20 1528 VISIT LOCKED DATE TIME: PHYSICIAN: BILL SRIVASTAVA PHYSICIAN PAGER NO: ACTIVE RESOURCE: BILL SRIVASTAVA REASON FOR APPOINTMENT 1. NEW MED HISTORY OF PRESENT ILLNESS PAIN CENTER INTAKE QUESTIONS: DO YOU HAVE A HISTORY OF MRSA? :NO DO YOU TAKE A BLOOD THINNERS? :YES ELAQUIS DO YOU HAVE ANY BLEEDING DISORDERS? :NO ANY NEW NUMBNESS OR WEAKNESS IN YOUR LEGS OR ARMS? :NO ANY PACEMAKER,DEFIBRILLATOR, OR DORSAL COLUMN STIMULATOR? :NO DO YOU HAVE ANY RASHES OR OPEN SORES? :NO ARE YOU ALLERGIC TO IV DYE? :YES ARE YOU DIABETIC? :YES ANY NEW PROBLEMS WITH YOUR MEDICATIONS? :NO HAVE YOU RECEIVED A VACCINE IN THE PAST 30 DAYS? :NO DO YOU PLAN TO RECEIVE A VACCINE IN THE NEXT 21 DAYS? :NO DO YOU NEED ANY PRESCRIPTION? :NO DO YOU TAKE ANY IMMUNOSUPPRESSIVE MEDICATIONS? :NO DO YOU HAVE ANY KIDNEY OR LIVER DISEASE? :NO IS THERE A CHANCE YOU COULD BE ? :NO ARE YOU BREAST FEEDING? :NO GENERAL: HPI 55-YEAR-OLD FEMALE IN FOR CHRONIC PAIN FOLLOW-UP. SHE RATES HER PAIN CURRENTLY AT A 10 OUT OF 10 AND DESCRIBES IT ACHING AND BURNING. PATIENT WAS STARTED ON LYRICA AT LAST CLINIC VISIT SHE ADMITS THAT SHE IS UNSURE IF THIS WAS BENEFICIAL.. -. FALL RISK SCREENING: SCREENING YES SEVERAL FALLS , CRACKED KNEE CAP -LEFT ALSO LEFT SHOULDER INJURIES, HAS GONE TO URGENT CARE. PAIN SCREENING: PATIENT HAS A COMPLAINT OF ACUTE OR CHRONIC PAIN :YES LOCATION OF PAIN:LOW BACK, KNEES, FEET INTENSITY OF PAIN (SCALE OF 1 TO 10):10 WHAT DOES YOUR PAIN FEEL LIKE:BURNING, ACHING PAIN IS INCREASED BY:ACTIVITIES, PROLONGED STANDING "DOESNT MATTER WHAT I DO ALWAYS HURTING" PAIN IS DECREASED BY:USE OF PAIN MEDICATIONS NURSING NOTE: -. CURRENT MEDICATIONS TAKING RAMIPRIL 10 MG CAPSULE 1 CAPSULE ORALLY ONCE A DAY TAKING NITROSTAT 0.4 MG TABLET SUBLINGUAL 1 TAB SUBLINGUALLY DIRECTED TAKING ATORVASTATIN CALCIUM 80 MG TABLET 1 TABLET ORALLY ONCE A DAY TAKING METFORMIN HCL ER 500 MG TABLET EXTENDED RELEASE 24 HOUR 1 TABLET WITH EVENING MEAL ORALLY TWICE A DAY TAKING RANITIDINE HCL 75 MG TABLET 1 TABLET NEEDED ORALLY ONCE A DAY TAKING AZELASTINE-FLUTICASONE 137-50 MCG/ACT SUSPENSION 1 PUFF IN EACH NOSTRIL NASALLY TWICE A DAY TAKING EPIPEN 0.3 MG/0.3ML (1:1000) DEVICE 1 PEN INTRAMUSCULAR DAILY NEEDED TAKING FREESTYLE TEST STRIPS 1 STRIP TWICE A DAY NEEDED TAKING NICOTINE 21 MG/24HR PATCH 24 HOUR 1 PATCH TO SKIN TRANSDERMAL ONCE A DAY TAKING NICOTROL 10 MG INHALER 1 CARTRIDGE NEEDED INHALATION 16 TIME(S) A DAY TAKING MIRTAZAPINE 30 MG TABLET 1 TABLET BEFORE BEDTIME IN THE EVENING ORALLY ONCE A DAY TAKING FLOVENT HFA 44 MCG/ACT AEROSOL INHALE TWO PUFFS BY MOUTH TWICE A DAY INHALATION TWICE A DAY TAKING FREESTYLE LITE TEST - STRIP DIRECTED IN VITRO BID TAKING CYMBALTA 60 MG CAPSULE DELAYED RELEASE PARTICLES 1 CAPSULE ORALLY ONCE A DAY TAKING FREESTYLE LANCETS - MISCELLANEOUS 1 LANCET SUBCUTANEOUSLY TWICE A DAY NEEDED BID TAKING TRAZODONE HCL 150 MG TABLET 1 TABLET AT BEDTIME ORALLY BEFORE BEDTIME TAKING CETIRIZINE HCL 10 MG TABLET 1 TABLET NEEDED ORALLY ONCE A DAY TAKING MONTELUKAST SODIUM 10 MG TABLET 1 TABLET IN THE EVENING ORALLY ONCE A DAY TAKING FOLIC ACID 1 MG TABLET 1 TABLET ORALLY ONCE A DAY TAKING AMITRIPTYLINE HCL 25 MG TABLET DIRECTED ORALLY BEFORE BEDTIME TAKING OMEPRAZOLE 40 MG CAPSULE DELAYED RELEASE 1 CAPSULE ORALLY TWICE A DAY TAKING PRAMIPEXOLE DIHYDROCHLORIDE 0.5 MG TABLET 1 TABLET BEFORE BEDTIME ORALLY 1 TAB IN AM 1 TAB IN PM TAKING VENTOLIN HFA 108 (90 BASE) MCG/ACT AEROSOL SOLUTION 2 PUFFS NEEDED INHALATION EVERY 4 HRS TAKING FLONASE 50 MCG/ACT SUSPENSION 1 SPRAY IN EACH NOSTRIL NASALLY ONCE A DAY TAKING ALOGLIPTIN BENZOATE 12.5 MG TABLET 2 TABLETS ORALLY ONCE A DAY TAKING ELIQUIS 5 MG TABLET DIRECTED ORALLY BID TAKING METHOCARBAMOL 750 MG TABLET 1 TABLET ORALLY THREE TIMES DAILY TAKING PLAVIX 75 MG TABLET 1 TABLET ORALLY ONCE A DAY TAKING FLUCONAZOLE 100 MG TABLET 2 TABS ON DAY 1 ,THEN 1 TAB DAILY ON DAYS 2-10 ORALLY ONCE A DAY TAKING VITAMIN D 37018 UNIT CAPSULE 1 CAPSULE ORALLY WEEKLY TAKING LYRICA 75 MG CAPSULE 1 CAPSULE ORALLY TWICE A DAY TAKING LORATADINE 10 MG TABLET 1 TABLET ORALLY ONCE A DAY TAKING MUCINEX 600 MG TABLET EXTENDED RELEASE 1 TABLET NEEDED ORALLY EVERY 12 HRS TAKING BACLOFEN 20 MG TABLET 1 TABLET WITH FOOD OR MILK ORALLY THREE TIMES A DAY TAKING OXYCODONE HCL 10 MG TABLET 1 TABLET NEEDED ORALLY EVERY 4 - 6 HRS PRN PAIN MDD=4 TAKING RYBELSUS 3 MG TABLET DIRECTED ORALLY TAKING MELATONIN 5 MG TABLET 1 TABLET IN THE EVENING ORALLY ONCE A DAY TAKING SUCRALFATE 1 GM/10ML SUSPENSION 10 ML ON AN EMPTY STOMACH ORALLY TWICE A DAY TAKING DOK 100 MG CAPSULE 1 CAPSULE NEEDED ORALLY ONCE A DAY NOT-TAKING GABAPENTIN 600 MG TABLET 1 TABLET ORALLY TID X 1WEEK THEN BID X 1 WEEK THEN QD X 1 WEEK THEN EVERY OTHER DAY X 1 WEEK NOT-TAKING AMITIZA 8 MCG CAPSULE 1 CAPSULE WITH FOOD AND WATER ORALLY TWICE A DAY NOT-TAKING SOMA 350 MG TABLET 1 TABLET NEEDED ORALLY TWO TIMES A DAY NOT-TAKING METHYLPREDNISOLONE 4 MG TABLET THERAPY PACK DIRECTED ORALLY DIRECTED NOT-TAKING GABAPENTIN 800 MG TABLET 1 ORALLY TID NOT-TAKING DOXYCYCLINE 40 MG CAPSULE DELAYED RELEASE 100MG CAPSULE IN THE MORNING ON AN EMPTY STOMACH ORALLY ONCE A DAY NOT-TAKING LYRICA 75 MG CAPSULE 1 CAPSULE ORALLY BID MDD2 UNKNOWN CARISOPRODOL 350 MG TABLET 1 TABLET NEEDED ORALLY FOUR TIMES A DAY UNKNOWN CLONAZEPAM 1 MG TABLET 1 TABLET ORALLY TWICE A DAY UNKNOWN NICODERM CQ 21 MG/24HR PATCH 24 HOUR 1 PATCH TO SKIN TRANSDERMAL ONCE A DAY UNKNOWN FLUTICASONE PROPIONATE HFA 220 MCG/ACT AEROSOL 1 PUFF INHALATION TWICE A DAY UNKNOWN COUMADIN 2 MG TABLET ORALLY 6MG DAILY EXCEPT FOR MONDAY DOSE IS 4 MG UNKNOWN LINZESS 290 MCG CAPSULE 1 CAPSULE ORALLY ONCE A DAY UNKNOWN DEPO-PROVERA 150 MG/ML SUSPENSION 1 ML INTRAMUSCULAR Q 3 MONTHS MEDICATION LIST REVIEWED AND RECONCILED WITH THE PATIENT PAST MEDICAL HISTORY CAD [facility] HEM[facility]RHOIDS T2DM HYPERLIPIDEMIA GERD MIGRAINES HIATAL HERNIA CHRONIC PAIN RESTLESS BODY SYNDROME ARTHRITIS COLONOSCOPY 2018 WITH DROP FOOT LEFT FRACTURE RIGHT KNEE CAP FRACTURED LEGT ELBOW FIBROMYALGIA ALLERGIES BEES: ANAPHYLAXIS - ALLERGY ANTI DEPRESANTS: MOOD ALTERATION--MEAN, ANGRY - SIDE EFFECTS ACETAMINOPHEN: N/V - SIDE EFFECTS ASPERTAME: N/V - SIDE EFFECTS HEART CATH DYE: ANAPHYLAXIS - ALLERGY FENTANYL : TASTE CHANGES - SIDE EFFECTS STEROIDS: THRUSH - SIDE EFFECTS IV DYE: ANAPHYLAXIS - ALLERGY SURGICAL HISTORY LATERAL RELEASE OF RIGHT KNEE LEFT KNEE BACK SURGERY LEFT SHOULDER SINUS SURGERY COLONOSCOPY DR. MARTINEZ. HEMORRHOIDS MODERATE 06/[address] [facility] ORDERED BY DR. Esteban ASHLEY, MULTIPLE STENTS, DUE TO UNSTABLE ANGINA 09/12/2017 FAMILY HISTORY FATHER: , PULMONARY FIBROSES MOTHER: , UNKNOWN, DIAGNOSED WITH DIABETES SIBLINGS: ALIVE SON(S): ALIVE DAUGHTER(S): ALIVE 2 SISTER(S) - HEALTHY. 1 SON(S) , 1 DAUGHTER(S) - HEALTHY. HOSPITALIZATION/MAJOR DIAGNOSTIC PROCEDURE SURG RELATED REVIEW OF SYSTEMS CONSTITUTIONAL: ANY RECENT FEVER NO . CHILLS NO . WEIGHT CHANGE OF UNKNOWN REASONS NO . GASTROENTEROLOGY: NEW UNEXPLAINABLE CHANGES IN BOWEL CONTROL NO . CONSTIPATION NO . GENITOURINARY: ANY NEW CHANGE IN BLADDER CONTROL? NO . NEUROLOGY: NEW ONSET DIZZINESS OR NEUROLOGICAL CHANGES NOT MENTIONED NO . NEW NUMBNESS OR PAIN PATTERNS NOT MENTIONED AND PERTINENT TO TODAY'S VISIT NO . CARDIOLOGY: NEW CHEST PRESSURE NO . PATIENT DENIES NO . RESPIRATORY: UNEXPLAINABLE COUGH NO . NEW SHORTNESS OF BREATH NO . VITAL SIGNS WT 224.8 LBS, HT 71 IN, BMI 31.35 INDEX, BP 143/86 MM HG, HR 112 /MIN, RR 18 /MIN, TEMP 98.6 F, OXYGEN SAT % 93%, SAFE IN ENV? (Y/N) YES, NA INITIALS SC 14:37, REVIEWED BY: KG. EXAMINATION GENERAL EXAMINATION: GENERALNO ACUTE DISTRESS, WELL NOURISHED AND HYDRATED. PSYCHAPPROPRIATE MOOD AND AFFECT . LUNGS:CLEAR TO AUSCULTATION BILATERALLY, NO WHEEZES, RHONCHI, RALES. HEART:NO MURMURS, REGULAR RATE AND RHYTHM. ASSESSMENTS CHRONIC PRESCRIPTION OPIATE USE - Z79.891 (PRIMARY) LUMBAR POST-LAMINECTOMY SYNDROME - M96.1, FOLLOWED BY THE PAIN CENTER. I HAVE COMPLETED THE FORMS TO CONTINUE HOME HEALTH AIDE TREATMENT CHRONIC PRESCRIPTION OPIATE USE LAB: URINE TEST GROUP ALCON HAWKINS 08/21/2020 3:24:31 PM > OXYCODONE 08-21-2020 LUMBAR POST-LAMINECTOMY SYNDROME INCREASE LYRICA CAPSULE, 100 MG, 1 CAPSULE, ORALLY, THREE TIMES DAILY, 30 DAYS, 90, REFILLS 2 NOTES: 55-YEAR-OLD FEMALE IN FOR CHRONIC PAIN FOLLOW-UP. GIVEN PRESENTING SYMPTOMS RECOMMEND INCREASING LYRICA TO 100 MG 3 TIMES DAILY WITH FOLLOW-UP IN 2 MONTHS TO DETERMINE EFFICACY OF TREATMENT. PATIENT HAS EXPRESSED UNDERSTANDING OF AND WAS IN AGREEMENT WITH TREATMENT PLAN. GIVEN TIME TO ASK QUESTIONS AND EXPRESS CONCERNS. [employer] REGISTRY REVIEWED AND DEMONSTRATES COMPLLIANCE. (REF # [id number] ) BRINGS IN MEDICATIONS WHICH IS APPROPRIATE FOR WHAT WAS DISPENSED. RECENT URINE TOXICOLOGY REVIEWED. NO UNAUTHORIZED MEDICATIONS. NO ILLICIT SUBSTANCES AND PRESCRIBED MEDICATIONS WERE PRESENT. PROCEDURE CODES [id number] ESTABILISHED PATIENT [facility] CHARGE DISPOSITION & COMMUNICATION FOLLOW UP 2 MONTHS (REASON: MEDICATION INCREASE) ELECTRONICALLY SIGNED BY JULIO BRAMBILA ON 08/24/2020 AT 10:09 AM EDT DISCLAIMER : THIS IS A VISIT SUMMARY EXTRACTED FROM THE [employer] CHART. IT IS NOT A COPY OF THE [employer] PROGRESS NOTE. JHON
== END ==
LOC: M PAIN 14:30
PROVIDERS: ATTEND Family Medicine
DX: M96.1 Postlaminectomy syndrome, not elsewhere classified (principal); E11.9 Type 2 diabetes mellitus without complications; K21.9 Gastro-esophageal reflux disease without esophagitis; G43.909 Migraine, unspecified, not intractable, without status migrainosus; M79.7 Fibromyalgia; Z88.5 Allergy status to narcotic agent; Z88.6 Allergy status to analgesic agent; Z88.8 Allergy status to other drugs, medicaments and biological substances; Z91.030 Bee allergy status; Z91.041 Radiographic dye allergy status; Z79.01 Long term (current) use of anticoagulants; Z79.84 Long term (current) use of oral hypoglycemic drugs; Z79.899 Other long term (current) drug therapy

== ENCOUNTER → 2020-10-14 | Outpatient (CLI) | payer OTHER | LOC: M PAIN 14:30 | PROVIDERS: ATTEND Anesthesiology | DX: M96.1 Postlaminectomy syndrome, not elsewhere classified (principal); M51.16 Intervertebral disc disorders with radiculopathy, lumbar region; Z86.14 Personal history of Methicillin resistant Staphylococcus aureus infection; E11.9 Type 2 diabetes mellitus without complications; K21.9 Gastro-esophageal reflux disease without esophagitis; G43.909 Migraine, unspecified, not intractable, without status migrainosus; M79.7 Fibromyalgia; F17.210 Nicotine dependence, cigarettes, uncomplicated; Z88.5 Allergy status to narcotic agent; Z88.6 Allergy status to analgesic agent; Z88.8 Allergy status to other drugs, medicaments and biological substances; Z91.030 Bee allergy status; Z91.041 Radiographic dye allergy status; Z79.01 Long term (current) use of anticoagulants; Z79.84 Long term (current) use of oral hypoglycemic drugs; Z79.899 Other long term (current) drug therapy ==

== ENCOUNTER → 2020-10-26 | Outpatient (CLI) | payer OTHER | LOC: M PAIN 13:30 | PROVIDERS: ATTEND Anesthesiology | DX: M96.1 Postlaminectomy syndrome, not elsewhere classified (principal); M51.16 Intervertebral disc disorders with radiculopathy, lumbar region; E11.9 Type 2 diabetes mellitus without complications; K21.9 Gastro-esophageal reflux disease without esophagitis; G43.909 Migraine, unspecified, not intractable, without status migrainosus; M79.7 Fibromyalgia; F17.210 Nicotine dependence, cigarettes, uncomplicated; Z86.14 Personal history of Methicillin resistant Staphylococcus aureus infection; Z88.5 Allergy status to narcotic agent; Z88.6 Allergy status to analgesic agent; Z88.8 Allergy status to other drugs, medicaments and biological substances; Z91.030 Bee allergy status; Z91.041 Radiographic dye allergy status; Z79.01 Long term (current) use of anticoagulants; Z79.84 Long term (current) use of oral hypoglycemic drugs; Z79.899 Other long term (current) drug therapy ==

== ENCOUNTER → 2020-11-23 | Outpatient (CLI) | payer OTHER | LOC: M PAIN 13:15 | PROVIDERS: ATTEND Anesthesiology | DX: M96.1 Postlaminectomy syndrome, not elsewhere classified (principal); E11.9 Type 2 diabetes mellitus without complications; K21.9 Gastro-esophageal reflux disease without esophagitis; G43.909 Migraine, unspecified, not intractable, without status migrainosus; M79.7 Fibromyalgia; F17.210 Nicotine dependence, cigarettes, uncomplicated; Z86.14 Personal history of Methicillin resistant Staphylococcus aureus infection; Z88.5 Allergy status to narcotic agent; Z88.6 Allergy status to analgesic agent; Z88.8 Allergy status to other drugs, medicaments and biological substances; Z91.030 Bee allergy status; Z91.041 Radiographic dye allergy status; Z79.01 Long term (current) use of anticoagulants; Z79.84 Long term (current) use of oral hypoglycemic drugs; Z79.891 Long term (current) use of opiate analgesic; Z79.899 Other long term (current) drug therapy ==

== ENCOUNTER → 2021-03-17 | Outpatient (CLI) | payer OTHER | LOC: M PAIN 14:15 | PROVIDERS: ATTEND Anesthesiology | DX: M96.1 Postlaminectomy syndrome, not elsewhere classified (principal); M47.816 Spondylosis without myelopathy or radiculopathy, lumbar region; E11.9 Type 2 diabetes mellitus without complications; K21.9 Gastro-esophageal reflux disease without esophagitis; G43.909 Migraine, unspecified, not intractable, without status migrainosus; M79.7 Fibromyalgia; F17.210 Nicotine dependence, cigarettes, uncomplicated; Z88.5 Allergy status to narcotic agent; Z88.6 Allergy status to analgesic agent; Z88.8 Allergy status to other drugs, medicaments and biological substances; Z91.030 Bee allergy status; Z91.041 Radiographic dye allergy status; Z79.01 Long term (current) use of anticoagulants; Z79.84 Long term (current) use of oral hypoglycemic drugs; Z79.899 Other long term (current) drug therapy ==